=== PATIENT | female | born 1980 | race Caucasian/White ===

== ENCOUNTER 2024-03-13 12:44 | Emergency (ER) | payer OTHER, SELFPAY ==
--- NOTE | ~2024-03-13 | XR_ITS ---
XR ankle LT min 3V DATE: 03/13/2024 13:01 INDICATION: Trauma TECHNIQUE: 4 views COMPARISON: None FINDINGS: There is mild to moderate anterolateral soft tissue swelling. No fracture or dislocation of the ankle with disruption of the ankle mortise is detected. No perioste al reaction or bone destruction. IMPRESSION: Mild anterolateral soft tissue swelling; no fracture or dislocation of ankle or disruptio n of ankle mortise is detected Reviewed, dictated and finalized at location A. IMPRESSION: Mild anterolateral soft tissue swelling; no fracture or dislocation of ankle or disruption of ankle mortise is detected
[2024-03-13 12:44] VITALS: BP 112/85; PULSE 92; RESP 18; TEMP 36.5; O2SAT 100
--- NOTE | 2024-03-13 13:29 | ED.LOWEXIN ---
HPI - Extremity Injury (Lower) General Chief Complaint: Extremity Injury, Lower Stated Complaint: ankle injury History of Present Illness HPI Narrative: Patient is a 43-year-old female who presents ER with a left ankle injury. She was on a swing at a local park when her shoe caught a rubber mat and twisted. She felt a pop. She has swelling to lateral malleolus. No numbness or tingling. No additional injury. She has not. Weight. She was splinted by EMS. Review of Systems Constitutional: Constitutional: Reports no additional constitutional complaints Musculoskeletal: Musculoskeletal: Denies back pain, Reports arthralgias, Reports joint swelling and Denies muscle cramps Neurologic: Reports system reviewed and no additional complaints, except as documented PMFSH Past Medical History Medical History (Updated 03/13/24 @ 13:50 by Brandon Mcmullen MD) Fibromyalgia Surgical History Surgical History (Updated 03/13/24 @ 13:50 by Brandon Mcmullen MD) No pertinent past surgical history Exam Narrative: GENERAL: Anxious-appearing, well-nourished, and in no acute distress. HEAD: Normocephalic, atraumatic. ENT: Mucous membranes moist. EXTREMITIES: Tender palpation over lateral malleolus of left ankle with swelling/bruising. SKIN: Warm, dry, no rash. NEURO: Alert and oriented x3. PSYCH: Normal mood and affect. Course Vital Signs Vital signs: Vital Signs Temperature 97.7 F 03/13/24 12:44 Pulse Rate 92 03/13/24 12:44 Respiratory Rate 18 03/13/24 12:44 Blood Pressure 112/85 03/13/24 12:44 Pulse Oximetry 100 03/13/24 12:44 Oxygen Delivery Room Air 03/13/24 12:44 Temperature 97.7 F 03/13/24 12:44 Pulse Rate 92 03/13/24 12:44 Respiratory Rate 18 03/13/24 12:44 Blood Pressure 112/85 03/13/24 12:44 Pulse Oximetry 100 03/13/24 12:44 Oxygen Delivery Room Air 03/13/24 12:44 MDM - Extremity Injury (Lower) Imaging Data Radiologist's impression: ITS Impressions Ankle X-Ray 03/13/24 13:04 IMPRESSION: Mild anterolateral soft tissue swelling; no fracture or dislocation of ankle or disruption of ankle mortise is detected Discharge Plan Discharge Clinical Impression: Ankle sprain and strain Patient Disposition: Home, Self-Care Condition: Stable Instructions: Ankle Sprain (ED) Additional Instructions: Return ER if you have fever 100.4? F, you cannot keep down food water, you have chest pain with shortness of breath, or you have additional concerns. Prescriptions: New naproxen 375 mg tablet 375 mg PO BID Qty: 14 0RF Follow-up/Referrals: PHYSICIAN NOT ON STAFF,NONSTAFF [Primary Care Provider] - 1 Week
== END 2024-03-13 13:58 | disposition home or self-care (01) ==
PROVIDERS: Emergency Provider Emergency Medicine
DX: S93.402A Sprain of unspecified ligament of left ankle, initial encounter (principal); X50.0XXA Overexertion from strenuous movement or load, initial encounter
CPT/HCPCS: 73610; 99283

== ENCOUNTER 2024-11-14 15:56 | Emergency (ER) | payer OTHER, SELFPAY ==
[2024-11-14 15:58] VITALS: BP 130/78; PULSE 87; RESP 16; TEMP 36.4; O2SAT 100
--- NOTE | 2024-11-14 16:04 | ED_ITS ---
HPI - Female Genitourinary General Chief complaint: Urogenital-Female <Nelly Umanzor APRN - Last Filed: 11/14/24 16:14> Stated complaint: dx UTI sent from [facility] <Nelly Umanzor APRN - Last Filed: 11/14/24 16:14> Time Seen by Provider: 11/14/24 16:05 <Nelly Umanzor APRN - Last Filed: 11/14/24 16:14> Patient is a 44-year-old female who presents to the ER after being sent by urgent care for concerns of pyelonephritis. She reports she has left flank pain and was diagnosed with a urinary tract infection. Patient reports she has a history of one remaining kidney. She denies any abdominal pain, fevers, or visible blood in her urine. Patient reports she had her other kidney removed after having kidney infections. At the time of examination patient endorses nausea but has not vomited. She denies any other medical history relevant to this ER visit. <Nelly Umanzor APRN - Last Filed: 11/14/24 16:14> History of Present Illness HPI Narrative: Patient is a 44-year-old female who presents to the ER after being sent by urgent care for concerns of pyelonephritis. She reports she has left flank pain and was diagnosed with a urinary tract infection. Patient reports she has a history of one remaining kidney. She denies any abdominal pain, fevers, or visible blood in her urine. Patient reports she had her other kidney removed after having kidney infections. At the time of examination patient endorses nausea but has not vomited. She denies any other medical history relevant to this ER visit. <Danilo Carney MD - Last Filed: 11/14/24 22:16> Related Data Allergies/Adverse reactions: Allergies Allergy/AdvReac Type Severity Reaction Status Date / Time ciprofloxacin Allergy Unknown Verified 11/14/24 15:57 diphenhydramine (From AdvReac Unknown Verified 11/14/24 15:57 Benadryl) prochlorperazine (From AdvReac Unknown Verified 11/14/24 15:57 Compazine) <Nelly Umanzor APRN - Last Filed: 11/14/24 16:14> Review of Systems 2 Review of Systems: All systems reviewed & are unremarkable except as noted in HPI and below <Danilo Carney MD - Last Filed: 11/14/24 22:16> [facility] Past Medical History Medical History: Medical History (Updated 11/14/24 @ 19:00 by Danilo Carney MD) Fibromyalgia <Nelly Umanzor APRN - Last Filed: 11/14/24 16:14> Surgical History Surgical History: Surgical History (Updated 03/13/24 @ 13:50 by Brandon Mcmullen MD) No pertinent past surgical history <Nelly Umanzor APRN - Last Filed: 11/14/24 16:14> Exam 2 Narrative: APPEARANCE: Well appearing, no pain, no distress, well-nourished. HEAD: normocephalic, atraumatic. EYES: PERRLA/EOMI, conjunctivae clear. NOSE: Normal no drainage EARS:TMS clear with good light reflex. THROAT: Pharynx clear, no exudate. NECK: Supple. No adenopathy, no masses. RESPIRATORY: Airway patent, respirations nonlabored. Clear to auscultation bilaterally, no rales, rhonchi, wheezing. CARDIOVASCULAR: Regular rate and rhythm without murmurs rubs or gallops. ABDOMINAL: Soft, nontender, nondistended, normal bowel sounds MUSCULOSKELETAL: Moves all extremities. Strength/ROM intact, No edema, No calf tenderness. NEURO: Alert. Cranial nerves II through XII intact. Good gait. Good coordination SKIN: Warm, dry. Normal Color <Danilo Carney MD - Last Filed: 11/14/24 22:16> Course Vital Signs Vital signs: Vital Signs Temperature 97.6 F 11/14/24 15:58 Pulse Rate 87 11/14/24 15:58 Respiratory Rate 16 11/14/24 15:58 Blood Pressure 130/78 11/14/24 15:58 Pulse Oximetry 100 11/14/24 15:58 Oxygen Delivery Room Air 11/14/24 15:58 Temperature 98.4 F 11/14/24 19:02 Pulse Rate 65 11/14/24 19:02 Respiratory Rate 16 11/14/24 19:02 Blood Pressure 113/75 11/14/24 19:02 Pulse Oximetry 99 11/14/24 19:02 Oxygen Delivery Room Air 11/14/24 15:58 <Nelly Umanzor APRN - Last Filed: 11/14/24 16:14> Vital Signs Temperature 97.6 F 11/14/24 15:58 Pulse Rate 87 11/14/24 15:58 Respiratory Rate 16 11/14/24 15:58 Blood Pressure 130/78 11/14/24 15:58 Pulse Oximetry 100 11/14/24 15:58 Oxygen Delivery Room Air 11/14/24 15:58 Temperature 98.4 F 11/14/24 19:02 Pulse Rate 65 11/14/24 19:02 Respiratory Rate 16 11/14/24 19:02 Blood Pressure 113/75 11/14/24 19:02 Pulse Oximetry 99 11/14/24 19:02 Oxygen Delivery Room Air 11/14/24 15:58 <Danilo Carney MD - Last Filed: 11/14/24 22:16> MDM - Female Genitourinary MDM Narrative Medical decision making narrative: 44-year-old female presents emergency department for evaluation for suspected pyelonephritis. Patient does have only a single functioning kidney secondary to recurrent urinary tract infections previously. Patient is afebrile but does have a leukocytosis of 11.1. Patient's creatinine is 0.8 for urine was positive for leukocyte esterase and 11-20 white blood cells. Urine culture was ordered. Was treated with Rocephin in the emergency department and is being discharged home on Keflex. Patient does have outpatient testing pending for her bacterial vaginosis. <Danilo Carney MD - Last Filed: 11/14/24 22:16> Differential Diagnosis Differential diagnosis: Likely urinary tract infection and bacterial vaginosis <Danilo Carney MD - Last Filed: 11/14/24 22:16> Lab Data Attestation: I reviewed the patient's lab results. <Danilo Carney MD - Last Filed: 11/14/24 22:16> Result diagrams: 11/14/24 16:36 11/14/24 16:36 <Nelly Umanzor APRN - Last Filed: 11/14/24 16:14> Labs: Lab Results 11/14/24 Range/Units 16:36 WBC 11.1 H (4.5-10.0) K/mm3 RBC 4.49 (4.2-5.4) M/mm3 Hgb 13.8 (12.0-15.0) g/dL Hct 41.5 (37.0-47.0) % MCV 92.4 (80-100) fl MCH 30.7 (26-34) pg MCHC 33.3 (32-36) g/dl RDW 13.5 (11.5-14.5) % Plt Count 227 (150-375) k/mm3 MPV 11.1 H (7.4-10.4) fl Immature Gran % (Auto) 0.3 (0-0.5) % Neut % (Auto) 56.2 (45.5-73.1) % Lymph % (Auto) 21.7 (18.3-44.2) % [place] % (Auto) 6.4 (2.6-8.5) % Eos % (Auto) 14.4 H (0-4.4) % Baso % (Auto) 1.0 (0.2-1.2) % Lymph # (Auto) 2.40 (0.9-3.2) K/mm3 [place] # (Auto) 0.7 H (0.1-0.6) K/mm3 Eos # (Auto) 1.6 H (0-0.3) K/mm3 Baso # (Auto) 0.1 (0.0-0.1) K/mm3 Abs Immat Gran (auto) 0.03 (0.00-0.031) K/mm3 Absolute Neuts (auto) 6.2 (1.3-6.7) K/mm3 Absolute Nucleated RBC 0.000 (0.0-0.012) K/mm3 Nucleated RBC % 0.0 (0.0-0.2) % Sodium 137 (137-145) mmol/L Potassium 3.8 (3.4-5.0) mmol/L Chloride 107 (98-107) mmol/L Carbon Dioxide 22 (22-30) mmol/L Anion Gap 8 (4-12) mmol/L BUN 18 H (7-17) mg/dL Creatinine 0.84 (0.7-1.0) mg/dL Estim Creat Clear Calc Not Reportable Estimated GFR > 60 (59 - ) Glucose 101 (65-110) mg/dL Calcium 8.7 (8.4-10.2) mg/dL Total Bilirubin 0.4 (0.2-1.3) mg/dL AST 19 (14-36) U/L ALT 17 (6-35) U/L Alkaline Phosphatase 57 (38-126) U/L Total Protein 8.0 (6.3-8.2) g/dL Albumin 4.3 (3.5-5.1) g/dL Urine Color Yellow (Yellow) Urine Appearance Clear (Clear) Urine pH 6.0 (5.0-9.0) Ur Specific [place] 1.005 (1.001-1.035) Urine Protein Negative (Negative) mg/dL Urine Glucose (UA) Negative (Negative) mg/dL Urine Ketones Negative (Negative) mg/dL Ur Blood (Man) Negative (Negative) Urine Nitrate Negative (Negative) Urine Bilirubin Negative (Negative) Urine Urobilinogen 0.2 (<2.0) mg/dL Add Ur Microanalysis Reviewed Leukocyte Esterase Rfl 2+ H (Negative) HETAL/UL Urine RBC 0-2 (0-2) /hpf Urine WBC 11-20 H (0-3) /hpf Ur Squamous Epith Cells None seen (Few) /hpf Urine Bacteria None seen /hpf Urine Casts 0-2 <Nelly Umanzor, TEMPLATE INSPECTOR - Last Filed: 11/14/24 16:14> Lab Results 11/14/24 Range/Units 16:36 WBC 11.1 H (4.5-10.0) K/mm3 RBC 4.49 (4.2-5.4) M/mm3 Hgb 13.8 (12.0-15.0) g/dL Hct 41.5 (37.0-47.0) % MCV 92.4 (80-100) fl MCH 30.7 (26-34) pg MCHC 33.3 (32-36) g/dl RDW 13.5 (11.5-14.5) % Plt Count 227 (150-375) k/mm3 MPV 11.1 H (7.4-10.4) fl Immature Gran % (Auto) 0.3 (0-0.5) % Neut % (Auto) 56.2 (45.5-73.1) % Lymph % (Auto) 21.7 (18.3-44.2) % [place] % (Auto) 6.4 (2.6-8.5) % Eos % (Auto) 14.4 H (0-4.4) % Baso % (Auto) 1.0 (0.2-1.2) % Lymph # (Auto) 2.40 (0.9-3.2) K/mm3 [place] # (Auto) 0.7 H (0.1-0.6) K/mm3 Eos # (Auto) 1.6 H (0-0.3) K/mm3 Baso # (Auto) 0.1 (0.0-0.1) K/mm3 Abs Immat Gran (auto) 0.03 (0.00-0.031) K/mm3 Absolute Neuts (auto) 6.2 (1.3-6.7) K/mm3 Absolute Nucleated RBC 0.000 (0.0-0.012) K/mm3 Nucleated RBC % 0.0 (0.0-0.2) % Sodium 137 (137-145) mmol/L Potassium 3.8 (3.4-5.0) mmol/L Chloride 107 (98-107) mmol/L Carbon Dioxide 22 (22-30) mmol/L Anion Gap 8 (4-12) mmol/L BUN 18 H (7-17) mg/dL Creatinine 0.84 (0.7-1.0) mg/dL Estim Creat Clear Calc Not Reportable Estimated GFR > 60 (59 - ) Glucose 101 (65-110) mg/dL Calcium 8.7 (8.4-10.2) mg/dL Total Bilirubin 0.4 (0.2-1.3) mg/dL AST 19 (14-36) U/L ALT 17 (6-35) U/L Alkaline Phosphatase 57 (38-126) U/L Total Protein 8.0 (6.3-8.2) g/dL Albumin 4.3 (3.5-5.1) g/dL Urine Color Yellow (Yellow) Urine Appearance Clear (Clear) Urine pH 6.0 (5.0-9.0) Ur Specific [place] 1.005 (1.001-1.035) Urine Protein Negative (Negative) mg/dL Urine Glucose (UA) Negative (Negative) mg/dL Urine Ketones Negative (Negative) mg/dL Ur Blood (Man) Negative (Negative) Urine Nitrate Negative (Negative) Urine Bilirubin Negative (Negative) Urine Urobilinogen 0.2 (<2.0) mg/dL Add Ur Microanalysis Reviewed Leukocyte Esterase Rfl 2+ H (Negative) HETAL/UL Urine RBC 0-2 (0-2) /hpf Urine WBC 11-20 H (0-3) /hpf Ur Squamous Epith Cells None seen (Few) /hpf Urine Bacteria None seen /hpf Urine Casts 0-2 <Danilo Carney MD - Last Filed: 11/14/24 22:16> Discharge Plan Discharge Clinical Impression: Urinary tract infection <Nelly Umanzor APRN - Last Filed: 11/14/24 16:14> Patient Disposition: Home, Self-Care <Nelly Umanzor APRN - Last Filed: 11/14/24 16:14> Condition: Stable <Nelly Umanzor APRN - Last Filed: 11/14/24 16:14> Instructions: Antibiotic Form, Urinary Tract Infection in Women (ED) <Nelly Umanzor APRN - Last Filed: 11/14/24 16:14> Additional Instructions: Antibiotic as directed until completed. Call urgent care regarding your BV testing. Have close follow-up with your primary care physician. If you have any worsening symptoms then please call or return to the emergency department. Continue to take a probiotic. <Nelly Umanzor APRN - Last Filed: 11/14/24 16:14> Patient Language: Andorran <Nelly Umanzor APRN - Last Filed: 11/14/24 16:14> Prescriptions: New cephalexin 500 mg capsule 500 mg PO Q12H 7 Days Qty: 14 0RF No Action naproxen 375 mg tablet 375 mg PO BID Qty: 14 0RF <Nelly Umanzor APRN - Last Filed: 11/14/24 16:14> Follow-up/Referrals: PHYSICIAN NOT ON STAFF,NONSTAFF [Non-Staff] - <Nelly Umanzor APRN - Last Filed: 11/14/24 16:14>
[2024-11-14 16:50] LABS: Basophils Absolute Auto 0.1 K/mm3 (0.0-0.1); Eosinophils Absolute Auto 1.6 K/mm3 (0-0.3); Eosinophils Percent Auto 14.4 % (0-4.4); Hematocrit 41.5 % (37.0-47.0); Hemoglobin 13.8 g/dL (12.0-15.0); Immature Granulocyte Absolute 0.03 K/mm3 (0.00-0.031); Immature Granulocyte Percent A 0.3 % (0-0.5); Lymphocytes Percent Auto 21.7 % (18.3-44.2); Mean Corpuscular HGB Conc 33.3 g/dl (32-36); Mean Corpuscular Hemoglobin 30.7 pg (26-34); Mean Corpuscular Volume 92.4 fl (80-100); Mean Platelet Volume 11.1 fl (7.4-10.4); Monocytes Absolute Auto 0.7 K/mm3 (0.1-0.6); Monocytes Percent Auto 6.4 % (2.6-8.5); Neutrophils Absolute Auto 6.2 K/mm3 (1.3-6.7); Neutrophils Percent Auto 56.2 % (45.5-73.1); Platelet Count Result 227 k/mm3 (150-375); Red Blood Count 4.49 M/mm3 (4.2-5.4); Red Cell Distribution Width 13.5 % (11.5-14.5); White Blood Count 11.1 K/mm3 (4.5-10.0)
[2024-11-14 16:58] LABS: Alanine Aminotransferase 17 U/L (6-35); Albumin Level 4.3 g/dL (3.5-5.1); Alkaline Phosphatase 57 U/L (38-126); Anion Gap 8 mmol/L (4-12); Aspartate Amino Transferase 19 U/L (14-36); Bilirubin,Total 0.4 mg/dL (0.2-1.3); Blood Urea Nitrogen 18 mg/dL (7-17); Calcium 8.7 mg/dL (8.4-10.2); Carbon Dioxide 22 mmol/L (22-30); Chloride 107 mmol/L (98-107); Estimated Glomerular Filt Rate > 60; Glucose 101 mg/dL (65-110); Potassium 3.8 mmol/L (3.4-5.0); Sodium 137 mmol/L (137-145)
[2024-11-14 17:18] LABS: Add Urine Microscopic? YES; Appearance Urine Clear (Clear); Bacteria Urine None Seen /hpf; Bilirubin Urine Negative (Negative); Blood Urine Negative (Negative); Color Urine Yellow (Yellow); Glucose Urine UA Negative (Negative); Ketones Urine Negative (Negative); Leukocyte Esterase Ur 2+ LEU/UL (Negative); Need Manual Microscopic Reviewed; Nitrate Urine Negative (Negative); Non Pathogenic Casts 0-2; Protein Urine Negative (Negative); RBC Urine 0-2 /hpf (0-2); Specific Grav Ur 1.005 (1.001-1.035); Squamous Epithelial Cell Urine None Seen /hpf (Few); Urobilinogen Urine 0.2 mg/dL (<2.0)
[2024-11-14] MEDS: ONDANSETRON HCL ODT 4 MG TABLET PO (17:50)
--- OUTSIDE RECORDS SUMMARY | 2024-11-14 18:17 | XMS_ITS | Encounter Summary ---
Author Organization [facility] Healthcare Address [address] [place] [address] Care Team Providers Care Lpn Or Medical Assistant Name Role Phone Remy Escalante .NET DEVELOPER Unavailable Leslie Brand Primary Care Provider [phone] Reason for Visit * Reason Comments Vaginal Discharge Pt reports she was s een and treated for BV on 09/29/24 and she did the metronidazole gel for the full course and felt better for a couple days but sxs returned and then a couple days later she did another treatment from what was leftover Blood in urine and cloudy urine, L sided back pain and nausea. Encounter Details Date Type Department Care Team (Late st Contact Info) Description 11/14/2024 3:00 PM CDT Office Visit [facility] at [address] [address] Katherin Holland NP [address] [place] [address] [address] [place] [address] Dysuria (Primary Dx); Vaginal discharge; History of pyelonephritis; Atrophic kidney; Left flank pain Social History Tobacco Use Types Packs/Day Years Used Date Smoking Tobacco: Every Day Cigarettes Smokeless Tobacco: Never Alcohol Use Standard Drinks/Week Comments Not Currently 0 (1 standard drink = 0.6 oz pur e alcohol) Hamilton Depression Scale Answer Date Recorded Hamilton Depression Scale Total 13 11/28/2020 The thought of harming myself has occurred to me . Hardly ever 11/28/2020 Comments No Sex and Gender Information Value Date Recorded Sex Assigned at Not on file Legal Sex Female 10:39 AM CDT Gender Identity Not on file Sexual Orientation Not on file documented as of this encounter Last Filed Vital Signs Vital Sign Reading Time Taken Comments Blood Pressure 122/76 11/14/2024 2:55 PM CDT Pulse 88 11/14/2024 2:55 PM CDT Temperature 36.1 C (97 F) 11/14/2024 2:55 PM CDT Respiratory Rate 16 11/14/2024 2:55 PM CDT Oxygen Saturation 99% 11/14/2024 2:55 PM CDT Inhaled Oxygen Concentration - - Weight 61.2 kg (135 lb) 11/14/2024 2:55 PM CDT Height - - Body Mass Index 21.46 09/29/2024 7:24 PM MARKETING PROJECT COORDINATOR documented in this encounter Patient Instructions * Patient Instructions* Katherin Holland NP - 11/14/2024 3:00 PM CDT Patient presents today with complaints of abdominal pain and left flank pain along with cloudy urine and blood in her urine over the last 2 days. Patient does have Left flank pain upon exam. Her urine did show a moderate amount of leukocytes and a trace amount of blood. Patient only has 1 functioning kidney. Reports her flank pain is on the same side of the kidney. Concern for pyelonephritis. documented in this encounter Plan of Treatment Scheduled Orders Name Type Priority Associated Diagnoses Orde r Schedule Urine culture Urine, clean voided Microbiology Routine Dysuria History of pyelonephritis Atrophic kidney Left flank pain Expected: 11/14/2024, Expires: 11/14/2025 Vaginitis panel Vaginal Microbiology Routine Vaginal discharge Expected: 11/17/2024, Expires: 11/14/2025 documented as of this encounter Procedures Procedure Name Priority Date/Time Associated Diagnosis Comments POCT URINALYSIS DIPSTICK Routine 11/14/2024 3:23 PM CDT Dysuria History of pyelonephritis Atrophic kidney Left flank pain documented in this encounter Results * (ABNORMAL) POCT urinalysis dipstick (11/14/2024 3:23 PM CDT) Color, Urine, POC Dark Yellow Clarity, ur, POC Cloudy(A) Clear Glucose, ur, POC Negative Negative MG/DL Bilirubin, ur, POC Negative Negative, Small, Moderate, Large Ketones, ur, POC Negative Negative Specific [place], POC 1.020 1.003 - 1.030 Blood, ur, POC Hemolyzed, trace(A) Negative pH, ur, POC 6.5 5.0 - 8.0 Protein, ur, POC Negative Negative Urobilinogen, urine, POC 2.0(A) 0.2 - 1.0 mg/dL Nitrite, ur, POC Negative Negative Leukocytes, ur, POC Moderate(A) Negative Lot Number [id number] Urine 11/14/2024 3:23 PM CDT Katherin Holland NP POINT OF CARE TEST ORDERAB LES Final Result documented in this encounter Visit Diagnoses Diagnosis Dysuria- Primary Vaginal discharge Leukorrhea, not specified as infective History of pyelonephritis Atrophic kidney Unspecified renal sclerosis Left flank pain Abdominal pain, unspecified site documented in this encounter Historical Medications * This list may reflect changes made after this encounter. SUMAtriptan (IMITREX) 25 mg tablet Take 1 tablet (25 mg total) by mouth 07/08/2024 sertraline (ZOLOFT) 100 mg tablet Take 1 tablet (100 mg total) by mouth 10/12/2019 nortriptyline (PAMELOR) 10 mg capsule Take 2 capsules (20 mg total) by mouth 06/20/2024 added in this encounter Care Teams Lpn Or Medical Assistant Relationship Specialty Start Date End Date Leslie Brand PA [address] [place] [address] PCP - General Physician Utilities Operator 11/14/24 Remy Escalante NP Nurse Practitioner Emergency Medicine 04/06/20 documented as of this encounter
--- OUTSIDE RECORDS SUMMARY | 2024-11-14 18:17 | XMS_ITS | Encounter Summary ---
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 cervical lordosis with disc bulges at C4-5 C5-6 and C6-7 as discussed above. Principal Saw Filer Name: LACIE JCARLOS A/P 43 yo with a h/o tobacco abuse, fibromyalgia, major depression, JAYCOB, and... MECHANICAL TECH into both arms not dermatomal Dove into shallow end of pool 16 yo ago all started. In therapy. No home traction. tried accupuncture. No e.s.i. No chiropractor. MRI cervical showed: cervical spondylosis DDD C4-5, C5-6, C6-7 loss of lordosis but not kypohotic C6-7 moderate to severe central spinal canal stenosis. No significant spinal cord signal abnormalities are noted. Moderate bilateral foraminal narrowing C5-6 moderate spinal canal stenosis. Moderate left and moderate to severe right foraminal narrowing. C4-5 mild to moderate central spinal canal stenosis. mild foraminal narrowing We discussed C4,C5,C6, top of C7 bilateral laminectomies for decompression. Declined. Miss Murry wished to try more conservative options first. We discussed home traction device, e.s.i., chiropractor We ordered bilat UE EMG/NCV CC pain management cervical e.s.i. VVC today. EMG/NCV no results. Miss Murry NO SHOW today and I even call phone. left message. FAHAD Cohn If patient wishes to reschedule and talk, have her get the bilat UE EMG/NCV (I don't see done), CC pain management cervical e.s.i.. /charleen/ JENI GARCIA MD PhD FAANS FCNS ATTENDING NEUROSURGEON Signed: 04/06/2024 11:36 Receipt Acknowledged By: 04/07/2024 12:41 /AVERY Shah PA-C, [facility]
--- OUTSIDE RECORDS SUMMARY | 2024-11-14 18:17 | XMS_ITS | Clinical Summary ---
Author Organization [facility] Address [facility] [place] [address] Care Team Providers Care Junior Manufacturing Engineer Name Role Phone Remy Escalante PARAPROFESSIONAL INTERPRETER Unavailable Leslie Brand Primary Care Provider [phone] Allergies Active Allergy Reactions Criticality Noted Date Comments Diphenhydramine Unknown 05/29/2020 Prochlorperazine Unknown 05/29/2020 Medications gabapentin (NEURONTIN) 100 mg capsule Take 1 capsule (100 mg total) by mouth 3 (three) times a day Active acetaminophen 500 mg capsuleIndicati ons:Fever,Pain Take 2 capsules (1,000 mg total) by mouth every 6 (six) hours as needed for pain 120 tablet 1 1 Active Additional Information Patient not taking.Reported on 11/14/2024 PNV with [id number] 27 mg iron- 1 mg tabletIndicatio ns:Vitamin Deficiency Prevention Take 1 tablet by mouth daily 90 tablet 1 1 Active Additional Information Patient not taking.Reported on 11/14/2024 ibuprofen (ADVIL,MOTRIN) 600 mg tabletIndicatio ns:Cramps Take 1 tablet (600 mg total) by mouth every 6 (six) hours as needed for pain 120 tablet 1 1 Active Additional Information Patient not taking.Reported on 11/14/2024 oxyCODONE (ROXICODONE) 5 mg immediate release tabletIndicatio ns:Pain Take 1 tablet (5 mg total) by mouth every 4 (four) hours as needed for pain for up to 8 doses 8 tablet 1 Active Additional Information Patient not taking.Reported on 11/14/2024 polyethylene glycol (MIRALAX) 17 gram packetIndicatio ns:constipation Take 1 packet (17 g total) by mouth daily 30 packet 2 1 Active Additional Information Patient not taking.Reported on 11/14/2024 simethicone (MYLICON) 80 mg chewable tabletIndicatio ns:Flatulence Take 1 tablet (80 mg total) by mouth 4 (four) times a day as needed for flatulence 30 tablet 1 Active Additional Information Patient not taking.Reported on 11/14/2024 metroNIDAZOLE (METROGEL) 0.75 % (37.5mg/5 gram) vaginal gelIndications: Bacterial Vaginosis Apply to vagina nightly for 5 nights. 70 g 5 Active nortriptyline (PAMELOR) 10 mg capsule Take 2 capsules (20 mg total) by mouth 4 Active sertraline (ZOLOFT) 100 mg tablet Take 1 tablet (100 mg total) by mouth 0 Active SUMAtriptan (IMITREX) 25 mg tablet Take 1 tablet (25 mg total) by mouth 4 Active Active Problems Problem Noted Date Diagnosed Date care following vaginal delivery 09/24 Overview (09/25/2020): # ID: Afebrile. No signs/symptoms of infection. COVID-19 negative. # Heme: EBL 250 mL. Hemodynamically stable. # CV/Pulm: Gestational hypertension - Blood pressures well controlled on no agents. Asymptomatic, denies CHAPMAN/RUQ pain/vision changes. CBC/CMP wnl. Newly diagnosed this admission. Consented for remote BP monitoring. # GI/: Tolerating PO. Voiding spontaneously. # Pain: Controlled with above regimen. # Post DVT prophylaxis: The patient has the following MAJOR risk factors none and the following MINOR risk factors none. SCDs ordered for VTE prophylaxis. # MOC: S/p BTL # MOF: # Fibromyalgia: pain well controlled on gabapentin # Celiac disease: continue gluten free diet per patient request # GDMA2: Fasting BG PPD#1: 74. For 2h OGTT at 6 weeks . # Disposition: Continue routine care Constipation during in third trimester 08/27/2020 Overview (08/27/2020): Add Colace, Can use miralax. Leiomyoma of uterus affecting in third trimester 07/27/2020 Overview (08/13/2020): Left lateral wall. Subserous. Size 16 mm x 11 mm x 17 mm. Mean 14.7 mm Anterior. Fundal. Subserous. Size 38 mm x 23 mm x 37 mm. Mean32.7 mm Fundal. Pedunculated. Size 53 mm x 52 mm x 58 mm. Mean 54.3 mm Gestational diabetes mellitu s (GDM) in third trimester controlled on oral hypoglycemic drug 07/27/2020 Overview (09/21/2020): Previously counseled S/p diabetes education Current regimen: Metformin to 1000 mg BID, previously discussed insulin but patient declined. Majority of fastings are still elevated 09/21/2020. She has [employer] insurance and would have to have the insulin shipped to her house. Discussed with Dr. Aquino who recommends She try either 500mg in the AM and 1500mg in the PM or 2,000mg in the PM. Also recommend a short walk in the evenings. Plan: -continue home BG monitoring with weekly logs -Continue twice weekly testing -IOL at 39 weeks- scheduled -2 hour GTT complicated by tobacco use in second t rimester 05/31/2020 Overview (08/13/2020): Daily tobacco use. Working on cutting down Short cervix during in second trimeste r 05/29/2020 Overview (09/21/2020): S/p vaginal progesterone> uncomplicated exam-indicated cerclage placement on 06/01 Removed 09/10. Cervix 2/75/-3 on 09/13 Cervix 3/1/-3 on 09/21- strict labor precautions reviewed Assessment & Plan (06/22/2020 10:52 AM CDT): Reports intermittent vaginal spasms. Cerclage visualized today without tension. Strict ptl precautions reviewed. Assessment & Plan (06/08/2020 11:39 AM CDT): No tension noted on her cerclage today. Discussed recommendation to not have intercourse. We discussed that if she were to travel we recommend presenting to her closest hospital an emergency and having her records with her. Advanced maternal age in multigravida, second tr imester 05/29/2020 Overview (05/29/2020): - No screening performed. - Anatomic survey without malformations. Celiac disease 05/24/2020 Overview (05/29/2020): Patient follows a gluten free diet. Will monitor weight gain and if concern will refer to auto body customizer for consult. Fibromyalgia 05/24/2020 Overview (05/29/2020): Patient reports pain is controlled with gabapentin. No increased interventions during this . Supervision of high-risk , unspecified trimester 05/24/2020 Overview (09/21/2020): [x] Full M Care; [] Red Team [] Blue Team Referring Provider: Dr. Gege Eubanks at [place] [phone] [x] Dating Criteria: LMP 12/30/19 STACIE 10/05/20 [x] Labs: Lab Results Component Value Date ABORH A Positive 05/30/2020 IDCOOMB Negative 05/30/2020 [id number] Nonreactive 05/30/2020 LABRPR Nonreactive 05/30/2020 RUBELIGG Reactive 05/30/2020 HEPBSAG Nonreactive 05/30/2020 [x] GC/CT: Neg/Neg on 05/31/20 [] Genetic Screening: [x] CBC [11.8/35.1/260K] [x] UCx: GBS [] Pap: will address at 6 weeks PP [] LD ASA (if indicated) starting at 12 weeks: [] PNBHS referral (if indicated) 2nd Tri Labs: [x] Anatomy ultrasound: [x] CBC [11.4/33.7/278K] /1hr [202] [x] Flu Shot (Apr-Jul): Declined 05/31/20 rk [x] Tdap (27-36wks): received in April of this year 3rd Tri Labs: [x] CBC/HIV/RPR: 11.4/neg/neg [x] GBS: POSITIVE 05/30/20 [] COVID testing: ordered 09/13/2020 Counselling [x] MOD: , IOL 39 weeks - Scheduled 09/27/20 @ 2200 [x] Place of delivery: [facility] [x] MOC: Desires BTL at [facility] Lucas Ramos [x] Method of feeding: [x] Course Instructor: discussed and resources provided, pt will call her insurance company today [x] PP Depression Discussed: Encounters Date Type Department Care Team Description 11/14/2024 3:00 PM CDT Office Visit [facility] at [address] [phone] Katherin Holland NP Dysuria (Primary Dx); Vaginal discharge; History of pyelonephritis; Atrophic kidney; Left flank pain 10/01/[address] [facility] [address] [phone] Dee Olvera NP 09/29/2024 7:30 PM BROKE BEATER Office Visit [facility] at [address] [phone] Dee Olvera NP Screening for STD (sexually transmitted disease) (Primary Dx); Vaginal odor; Vaginal discharge 09/29/2024 7:26 PM BROKE BEATER - 09/29/2024 11:59 PM BROKE BEATER Hospital Encounter [address] [address] Screening for STD (sexually transmitted disease); Vaginal odor; Vaginal discharge Discharge Disposition: Discharge to home or self care from Last 3 Months Surgical History Surgery Date Site/Laterality Comments NO PAST SURGERIES CERCLAGE CERVIX TUBAL LIGATION 08/24/2020 - 08/23/2021 Medical History Medical History Date Comments Fibromyalgia Herpes genitalis in women last b reakout about a year ago Diabetes mellitus (HCC) gestatio nal DM Preeclampsia 2020 with first pregn nolan Social History Tobacco Use Types Packs/Day Years Used Date Smoking Tobacco: Every Day Cigarettes Smokeless Tobacco: Never Tobacco Cessation:Ready to Q uit: No Alcohol Use Standard Drinks/Week Comments Not Currently 0 (1 standard drink = 0.6 oz pur e alcohol) [place] Depression Scale Answer Date Recorded [place] Depression Scale Total 13 11/28/2020 The thought of harming myself has occurred to me . Hardly ever 11/28/2020 Comments No Sex and Gender Information Value Date Recorded Sex Assigned at Not on file Legal Sex Female 10:39 AM CDT Gender Identity Not on file Sexual Orientation Not on file Obstetrics History Para Term AB IAB SAB Ectopic Multiple Livin g Live Births 1 1 1 0 1 1 Date Outcome GA Total Labor Labor/2nd/3rd Weight Sex Type Anes PTL Ines A1 A5 Name Clin 021 Term 38w 3d 8h 48m 8h 20m/0h 26m/0h 02m 2.795 kg (6 lb 2.6 oz) M Vag-S pont Epidur al N Livin g 8 9 WIAlina MILLER OYRAC [facility]AL David almaraz, Yoni Brar MD Complications:None Delivery Location:[facility] Main C ampus ([facility] 58LD) Last Filed Vital Signs Vital Sign Reading Time Taken Comments Blood Pressure 122/76 11/14/2024 2:55 PM CDT Pulse 88 11/14/2024 2:55 PM CDT Temperature 36.1 C (97 F) 11/14/2024 2:55 PM CDT Respiratory Rate 16 11/14/2024 2:55 PM CDT Oxygen Saturation 99% 11/14/2024 2:55 PM CDT Inhaled Oxygen Concentration - - Weight 61.2 kg (135 lb) 11/14/2024 2:55 PM CDT Height 168.9 cm (5' 6.5 ) 09/29/2024 7:24 PM BROKE BEATER Body Mass Index 21.46 09/29/2024 7:24 PM BROKE BEATER Plan of Treatment Health Maintenance Due Date Last Done Comments Albumin Creatinine Ratio, Urine 1981 Breast Cancer Screening-Mammogram 1981 Cervical Cancer Screening 1981 Hemoglobin A1C 1981 Hepatitis C Screening 1981 eGFR 1981 Dilated Eye Exam 1981 Foot Exam 1981 Lipid Panel 1981 Varicella Vaccines (1 of 2 - 13+ 2-dose series) 1994 Hepatitis B Screening 1999 Regular Well Visit/Exam 18-64 1999 Pneumococcal vaccine <65 (1 of 2 - PCV) 2000 Depression Screening 11/28/2021 11/28/2020 Influenza Vaccine (#1) 2024 DTaP/Tdap/Td Vaccine (2 - Td or Tdap) 11/17/2029 11/18/2019 HPV Vaccines Aged Out No longer eligi ble based on patient's age to complete this topic Procedures Procedure Name Priority Date/Time Associated Diagnosis Comments POCT URINALYSIS DIPSTICK Routine 11/14/2024 3:23 PM CDT Dysuria History of pyelonephritis Atrophic kidney Left flank pain N. GONORRHOEAE/C. TRACHOMATIS AMPLIFICATION Routine 09/29/2024 7:26 PM BROKE BEATER Screening for STD (sexually transmitted disease) Vaginal odor Vaginal discharge VAGINITIS PANEL Routine 09/29/2024 7:26 PM BROKE BEATER Screening for STD (sexually transmitted disease) Vaginal odor Vaginal discharge from Last 3 Months Results * (ABNORMAL) POCT urinalysis dipstick (11/14/2024 3:23 PM CDT) Color, Urine, POC Dark Yellow Clarity, ur, POC Cloudy(A) Clear Glucose, ur, POC Negative Negative MG/DL Bilirubin, ur, POC Negative Negative, Small, Moderate, Large Ketones, ur, POC Negative Negative Specific [place], POC 1.020 1.003 - 1.030 Blood, ur, POC Hemolyzed, trace(A) Negative pH, ur, POC 6.5 5.0 - 8.0 Protein, ur, POC Negative Negative Urobilinogen, urine, POC 2.0(A) 0.2 - 1.0 mg/dL Nitrite, ur, POC Negative Negative Leukocytes, ur, POC Moderate(A) Negative Lot Number [id number] Urine 11/14/2024 3:23 PM CDT Katherin Holland NP POINT OF CARE TEST ORDERAB LES Final Result * N. gonorrhoeae/C. trachomatis Amplification Vaginal (09/29/2024 7:26 PM BROKE BEATER) C. trachomatis Not Detected [facility] Comment:Testing performed by : [facility], [address] [place] [address]., [id number] N. gonorrhoeae Not Detected CHANDAN GARCIA Comment: Interpretive Data This assay detects Chlamydia trachomatis and Neisseria gonorrhoeae by nucleic acid amplification testing (NAAT). This assay has been cleared by the [place] Food and Drug administration. The performance characteristics of this test have been verified by the [facility] Molecular Infectious Disease laboratory. The performance characteristics of this test have not been evaluated in individuals less than 14 years of age. Current Interpretive Data was last revised on 2023. Testing performed by: [facility], [address] [place] [address]., [id number] Vaginal (None) 09/29/2024 7: 26 PM BROKE BEATER 09/30/2024 11:12 AM BROKE BEATER Dee Olvera NP LAB MICROBIOLOGY - GENERAL JONATHAN DUARTE Final Result CHANDAN GARCIA [id number] Department [place] [address] [facility] * (ABNORMAL) Vaginitis panel Vaginal (09/29/2024 7:26 PM BROKE BEATER) Jaz DNA probe Not Detected Not Detected Comment:Testing performed by : [facility], [address] [place] [address]., [id number] Gardnerella DNA probe Detected(A) Not Detected CHANDAN GARCIA Comment:Testing performed by : [facility], [address] [place] [address]., [id number] Trichomonas DNA probe Not Detected Not Detected CHANDAN GARCIA Comment: Interpretive Data Testing performed by [facility] via Affirm VPIII Microbial Identification Test, a DNA probe test for use in the detection and identification of Jaz species, Gardnerella vaginalis and Trichomonas vaginalis nucleic acid in vaginal fluid specimens from patients with symptoms of vaginitis/vaginosis. Negative results for these tests suggest the patient does not have candidiasis, bacterial vaginosis and/or trichomoniasis when consistent with clinical signs and symptoms. Current interpretive data was last revised on 2020. Testing performed by: [facility], [facility] [facility], [place]., [address] Vaginal 09/29/2024 7:26 PM BROKE BEATER 09/30/2024 12:48 PM BROKE BEATER us Dee Olvera NP LAB MICROBIOLOGY - GENERAL JONATHAN DUARTE Final Result CHANDAN [id number] Department [place] [address] from Last 3 Months Insurance [facility] Advance Directives For more information, please contact: [phone] * Full Code (Latest Code Status on File) Date Activated Date Inactivated Comments 09/24/2020 7:08 AM 09/25/2020 6:38 PM * Full Code Date Activated Date Inactivated Comments 09/23/2020 7:46 PM 09/24/2020 7:08 AM Full CPR in c ase of cardiopulmonary arrest * Full Code Date Activated Date Inactivated Comments 05/31/2020 3:38 PM 06/02/2020 7:12 PM Care Teams Junior Manufacturing Engineer Relationship Specialty Start Date End Date Leslie Brand PA [address] [place] [address] PCP - General Physician Magnetic Prospecting Supervisor 11/14/24 Remy Escalante NP Nurse Practitioner Emergency Medicine 04/06/20
--- OUTSIDE RECORDS SUMMARY | 2024-11-14 18:17 | XMS_ITS | Encounter Summary ---
Author Name [facility] [place] [facility] Address [address] [place] [address] Care Team Providers Care Blue Leather Sorter Name Role Phone FAHAD GUERRA Primary Care Provider MARIO Frias Primary Care Provider Unavailteodora gallegos Insurance Providers: All historical and current [...] AID (WNR) Nov 22, 2022 MEDICAI D [id number] LOUIE PAEZ PATIENT Selected Encounter This section includes the information on record at [place] for the Encounter. Date/Time Encounter Type Encounter Description Reason Pro vider Source IHE Encounter Template Text not used by [place]
--- OUTSIDE RECORDS SUMMARY | 2024-11-14 18:17 | XMS_ITS | Encounter Summary ---
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 Date/Time Encounter Type Encounter Description Reason Provider Source Feb 23, 2024 01:00 PM OFF/OP CNSLTJ NEW/EST MOD 40 NEUROLOGY ICD-10-CM G43.119 Migraine with aura, intractable, without status migrainosus UCHE GARCIA III Padmini Encounter Template Text not used by ID Assessments - Encounter Diagnoses This section includes the primary and secondary diagnoses documented for the Encounter. Date/Time Primary/Secondary Diagnosis Diagnosis Name Provider Source Feb 24, 2024 06:10 PM PRIMARY Migraine with aura, intractable, without status migrainosus UCHE GARCIA III [facility] Feb 24, 2024 06:10 PM SECONDARY Fibromyalgia UCHE GARCIA [facility] Feb 24, 2024 06:10 PM SECONDARY Oth symptoms and signs w cognitive functions and awareness UCHE GARCIA [facility] Feb 24, 2024 06:10 PM SECONDARY Vertigo of central origin UCHE GARCIA [facility] Plan of Treatment: Future Appointments (+ 6 months) and Future Tests (+/- 45 days) The Plan of Treatment section includes future care activities for the [facility] This section includes future appointments and future orders which are active, pending or scheduled. Future Appointments This section includes appointments that were scheduled to occur 6 months from the date of the Encounter, up to a maximum of 20 appointments. The data comes from all ID treatment facilities. Appointment Date/Time Appointment Type Appointme nt Facility Name Mar 23, 2024 06:15 AM AMBULATORY - MEDICINE [facility] Apr 05, 2024 09:30 AM AMBULATORY - SURGERY [facility] Apr 06, 2024 09:00 AM AMBULATORY - MEDICINE [facility] Apr 06, 2024 11:30 AM AMBULATORY - SURGERY [facility] Apr 17, 2024 03:19 PM AMBULATORY - MEDICINE [facility] Apr 21, 2024 01:30 PM AMBULATORY - PSYCHIATRY [facility] Apr 30, 2024 04:11 PM AMBULATORY - NONE [facility] May 04, 2024 12:29 AM AMBULATORY - NONE [facility] May 09, 2024 08:30 AM AMBULATORY - NEUROLOGY [facility] May 16, 2024 02:00 PM AMBULATORY - NEUROLOGY [facility] May 19, 2024 10:00 AM AMBULATORY - MEDICINE [facility] May 25, 2024 12:00 PM AMBULATORY - SURGERY [facility] Jun 20, 2024 12:02 PM AMBULATORY - MEDICINE [facility] Jun 28, 2024 02:30 PM AMBULATORY - REHAB MEDICIN E [facility] Jun 30, 2024 08:30 AM AMBULATORY - [facility] Jul 08, 2024 01:30 PM [facility] - MEDICINE [facility] Aug 10, 2024 03:00 PM [facility] - [facility] Aug 11, 2024 11:00 AM [facility] Lab Results: +/- 30 days of the encounter This section includes the Chemistry and Hematology Lab Results on record with ID for the patient. Radiology Reports and Pathology Reports are provided separately, in subsequent sections. Lab Results This section contains the Chemistry/Hematology Results that were resulted 30 days before or 30 daysafter the date of the Encounter. Date/Time Source Result Type Result - Unit Interpretation Reference Range Comment Feb 23, 2024 11:00 AM [facility] TEST URINE (MA-STL) Specimen Type: URINE No comment entered. Ordering Provider: ANGEL OGDEN Report Released Date/Time: Feb 23, 2024 10:27 AM Reporting Lab: [address] [phone] Performing Lab: [address] [phone] Qualitative Test NEG NEGATIVE Feb 23, 2024 11:00 AM [facility] URINALYSIS W/ CX REFLEX (STL-PB) Specimen Type: URINE No comment entered. Ordering Provider: ANGEL OGDEN Report Released Date/Time: Feb 23, 2024 10:27 AM Reporting Lab: [address] [phone] Performing Lab: [address] [phone] URINE COLOR Light-Yellow Yellow U.BILIRUBIN Negative mg/dL Negative U.PH 6.5 5.0-8.0 APPEARANCE Clear Clear U.NITRITE Negative mg/dL Negative URN.GLUCOSE Normal mg/dL Negative URN.PROTEIN Negative mg/dL Negative-20 URN.UROBILINOGEN 2 mg/dL H Normal URN.BLOOD Negative mg/dL Negative-Tr lupillo URN.KETONES Negative mg/dL Negative-Tr lupillo URN.LEUK.EST. Negative mg/dL Negative-Tr lupillo URN.SPECIFIC GRAVITY 1.017 1.005-1.029 Feb 23, 2024 10:25 AM [facility] TROPONIN I Specimen Type: PLASMA Comment: No hemolysis noted. Ordering Provider: ANGEL OGDEN Report Released Date/Time: Feb 23, 2024 10:27 AM Reporting Lab: [facility] [address] [facility] [phone] Performing Lab: [facility] [address] [facility] [phone] TROPONIN I <0.010 ng/mL 0-0.033 Feb 23, 2024 10:25 AM [facility] TSH (MA-PB) Specimen Type: SERUM No comment entered. Ordering Provider: ANGEL OGDEN Report Released Date/Time: Feb 23, 2024 10:27 AM Reporting Lab: [facility] [address] [place] [phone] Performing Lab: [facility] [address] [place] [phone] TSH 1.000 u[IU]/mL 0.47-5 Feb 23, 2024 10:25 AM [facility] MAGNESIUM Specimen Type: PLASMA Comment: No hemolysis noted. Ordering Provider: ANGEL OGDEN Report Released Date/Time: Feb 23, 2024 10:27 AM Reporting Lab: [facility] [address] [place] [phone] Performing Lab: [facility] [address] [facility] [address] MAGNESIUM 1.9 mg/dL 1.6-2.6 Feb 23, 2024 10:25 AM [facility] PHOSPHOROUS Specimen Type: PLASMA Comment: No hemolysis noted. Ordering Provider: ANGEL OGDEN Report Released Date/Time: Feb 23, 2024 10:27 AM Reporting Lab: [facility] [address] [facility] [phone] Performing Lab: [facility] [address] [place] [phone] PHOSPHOROUS 2.6 mg/dL 2.3-4.7 Feb 23, 2024 10:25 AM [facility] COMPREHENSIVE METABOLIC PANEL Specimen Type: PLASMA Comment: No hemolysis noted. Ordering Provider: ANGEL OGDEN Report Released Date/Time: Feb 23, 2024 10:27 AM Reporting Lab: [address] [phone] Performing Lab: [address] [phone] CREATININE 1.14 mg/dL H 0.6-1.1 UREA NITROGEN 11.9 mg/dL 9.0-25.0 GLUCOSE 91 mg/dL 72-99 SODIUM 136 meq/L 136-145 POTASSIUM 3.9 meq/L 3.5-5 CHLORIDE 101 meq/L 98-107 CARBON DIOXIDE 22 meq/L 22-31 CALCIUM 9.9 mg/dL 8.4-10.4 PROTEIN 8.5 g/dL 6-8.6 ALBUMIN 4.8 g/dL 3.4-5 TOTAL BILIRUBIN 0.4 mg/dL 0.2-1.2 ALKALINE PHOSPHATASE 64 U/L 40-150 AST/SGOT 16 U/L 5-34 ALT/SGPT 17 U/L 8-40 EGFR (CKD-EPI 2020) 61.6 >60 Feb 23, 2024 10:25 AM [facility] CBC Specimen Type: BLOOD No comment entered. Ordering Provider: ANGEL OGDEN Report Released Date/Time: Feb 23, 2024 10:27 AM Reporting Lab: [address] [phone] Performing Lab: [address] [phone] WBC 4.4 10*3/uL 3.6-11.2 RBC 5.09 10*6/uL H 3.60-5.00 HGB 16.2 g/dL H 11.0-14.9 HCT 48.2 H 32.6-43.4 MCV 94.7 fL 80.0-100.0 MCH 31.8 pg 27.0-34.0 MCHC 33.6 g/dL 33.0-36.0 PLT 208 10*3/uL 150-400 MPV 11.3 fL H 7.5-11.2 RDW 12.9 11.8-15.1 LYMPHOCYTES, AUTO % 8 MONOCYTES, AUTO % 14 NEUTROPHILS, AUTO % 71 EOSINOPHILS, AUTO % 6 BASOPHILS, AUTO % 1 LYMPHOCYTES, ABSOLUTE 0.37 10*3/uL L 0.77-4.50 MONOCYTES, ABSOLUTE 0.61 10*3/uL 0.19-0.80 NEUTROPHILS, ABSOLUTE 3.13 10*3/uL 2.10-8.00 EOSINOPHILS, ABSOLUTE 0.27 10*3/uL 0.00-0.60 BASOPHILS, ABSOLUTE 0.03 10*3/uL 0.00-0.20 Vital Signs: All taken on the encounter date This section contains inpatient and outpatient Vital Signs collected on the date of the Encounter. Date/Time Temperature Pulse Blood Pressure Respiratory Rate SP02 Pain Height Weight Body Mass Index Source Feb 23, 2024 03:50 PM 100 100/[address] [facility] Feb 23, 2024 02:00 PM 104 117/[address] [facility] Feb 23, 2024 01:21 PM 94 109/[address] [facility] Feb 23, 2024 12:00 PM 95 129/[address] [facility] Feb 23, 2024 11:00 AM 102 116/[address] [facility] Radiology Reports: +/- 30 days of the [...] the Encounter. The data comes from all [facility] facilities. Date/Time Radiology Report Provider Source Mar 23, 2024 06:55 AM ANKLE,LEFT,3 VIEWS : LOUIE PAEZ AND [id number] -1980 F Exm Date: MAR 23, 2024@06:55 Req Phys: JONATHAN MARQUEZ Loc: [facility]-EMERGENCY DEPT 1ST SHIFT (R Img Loc: -MAIN RADIOLOGY SUITE Service: Unknown Screen: Patient answered no [facility], [address] [place] [address] (Case [id number] COMPLETE) ANKLE,LEFT,3 VIEWS (RAD Detailed) CPT:96493 Proc Modifiers : LEFT Reason for Study: fall Clinical History: Report Status: Verified Date Reported: MAR 23, 2024 Date Verified: MAR 23, 2024 Forest Officer E-Sig:/ES/MAURA ALVAREZ MD Report: DATE: 03/23/2024 6:55 AM EXAM: ANKLE,LEFT,3 VIEWS, FOOT,LEFT 3 VIEWS OR MORE, TIBIA & FIBULA,LEFT, 2 VIEWS ACCESSION NUMBERS: [id number], [id number] History provided does not specifically explain the clinical reason and/or location of symptoms for the requested examination. comparison: none No acute fracture or dislocation. No other significant osseous abnormality Impression: No acute fracture or malalignment identified in the left tibia-fibula, ankle, and foot. Tomy Napier MD (Brazing Machine Setter) I, Maura Alvarez, have reviewed the images and report and concur with these findings. Primary Interpreting Staff: MAURA ALVAREZ MD, Radiologist (Forest Officer) Primary Interpreting Resident: TOMY NAPIER, Resident Physician /MAURA LAUREN [facility] Mar 23, 2024 06:55 AM TIBIA & FIBULA,LEF T, 2 VIEWS: MANEERLOUIE AND [id number] -1980 F Exm Date: MAR 23, 2024@06:55 Req Phys: JONATHAN MARQUEZ Loc: -EMERGENCY DEPT 1ST SHIFT (R Img Loc: -MAIN RADIOLOGY SUITE Service: Unknown Screen: Patient answered no [facility] [address] [place] [address] (Case [id number] COMPLETE) TIBIA & FIBULA,LEFT, 2 VIEWS (RAD Detailed) CPT:87639 Proc Modifiers : LEFT Reason for Study: fall Clinical History: Report Status: Verified Date Reported: MAR 23, 2024 Date Verified: MAR 23, 2024 Forest Officer E-Sig:/ES/MAURA ALVAREZ MD Report: DATE: 03/23/2024 6:55 AM EXAM: ANKLE,LEFT,3 VIEWS, FOOT,LEFT 3 VIEWS OR MORE, TIBIA & FIBULA,LEFT, 2 VIEWS ACCESSION NUMBERS: [id number], [id number] History provided does not specifically explain the clinical reason and/or location of symptoms for the requested examination. comparison: none No acute fracture or dislocation. No other significant osseous abnormality Impression: No acute fracture or malalignment identified in the left tibia-fibula, ankle, and foot. Tomy Napier MD (Brazing Machine Setter) I, Maura Alvarez, have reviewed the images and report and concur with these findings. Primary Interpreting Staff: MAURA ALVAREZ MD, Radiologist (Forest Officer) Primary Interpreting Resident: TOMY NAPIER, Resident Physician /MAURA LAUREN [facility] Mar 23, 2024 06:55 AM FOOT,LEFT 3 VIEWS OR MORE: LOUIE PAEZ AND [id number] -1980 F Exm Date: MAR 23, 2024@06:55 Req Phys: JONATHAN MARQUEZ Pat Loc: [facility]-EMERGENCY DEPT 1ST SHIFT (R Img Loc: -MAIN RADIOLOGY SUITE Service: Unknown Screen: Patient answered no [facility], [address] [place] [address] (Case [id number] COMPLETE) FOOT,LEFT 3 VIEWS OR MORE (RAD Detailed) CPT:07921 Proc Modifiers : LEFT Reason for Study: fall Clinical History: Report Status: Verified Date Reported: MAR 23, 2024 Date Verified: MAR 23, 2024 Forest Officer E-Sig:/ES/MAURA ALVAREZ MD Report: DATE: 03/23/2024 6:55 AM EXAM: ANKLE,LEFT,3 VIEWS, FOOT,LEFT 3 VIEWS OR MORE, TIBIA & FIBULA,LEFT, 2 VIEWS ACCESSION NUMBERS: [id number], [id number] History provided does not specifically explain the clinical reason and/or location of symptoms for the requested examination. comparison: none No acute fracture or dislocation. No other significant osseous abnormality Impression: No acute fracture or malalignment identified in the left tibia-fibula, ankle, and foot. Tomy Napier MD (Brazing Machine Setter) I, Maura Alvarez, have reviewed the images and report and concur with these findings. Primary Interpreting Staff: MAURA ALVAREZ MD, Radiologist (Forest Officer) Primary Interpreting Resident: TOMY NAPIER, Resident Physician /MAURA LAUREN [facility] Feb 23, 2024 12:[address] ANGIO HEAD AND NECK -P: CHITRA PAEZHEAL AND [id number] -1980 F Exm Date: FEB 23, 2024@12:44 Req Phys: ROBIN OGDEN Loc: [facility]-EMERGENCY DEPT 2ND SHIFT (R Img Loc: -CT IMAGING [facility] Service: Unknown Screen: Patient answered no [facility], [address] [place] [address] (Case [id number] COMPLETE) CT HEAD ANGIOGRAPHY W&W/O CONT (CT Detailed) CPT:38544 Contrast Media : unspecified contrast media Reason for Study: see below (Case 2028 COMPLETE) CT NECK ANGIOGRAPHY WITH AND WITH(CT Detailed) CPT:35981 Contrast Media : unspecified contrast media (Case 2030 COMPLETE) CT HEAD W/IV CONT (CT Detailed) CPT:57871 Contrast Media : Non-ionic Iodinated (Case 2030 COMPLETE) CT 3D RENDERING W INDEPENDENT WOR(CT Detailed) CPT:20429 Clinical History: Responsible Attending: jhon Attending Contact Number: er Resident Contact Number: [place] [employer] Enter Hx and Reason for Exam: headache, speech difficulties, dizziness, memory problems, family hx of strokes in mother, intermittent symptoms for months, outside treatment window so not a code stroke Allergies listed in CPRS chart: DIPHENHYDRAMINE, COMPAZINE, NICODERM TRANSDERMAL, NICORETTE 2MG GUM, LOZENGES CLINDAMYCIN Creatinine: CREATININE 0.90 mg/dL 12/01/2022 12:03 /eGFR: STL EGFR (within one year). *No Lab Data Found* Wt: 143.2 lb [64.95 kg] (01/04/2024 09:12) History of: Renal failure, chronic or acute renal disease: NO Report Status: Verified Date Reported: FEB 23, 2024 Date Verified: FEB 23, 2024 Forest Officer E-Sig:/ES/Lacie Aguilar MD Report: CASE #: [id number], [id number] DATE:02/23/2024 2:21 PM CLINICAL HISTORY:Headache, speech difficulties, dizziness, memory problems, family history of strokes. COMPARISON: None currently available. TECHNIQUE: CT HEAD ANGIOGRAPHY W&W/O CONT, CT NECK ANGIOGRAPHY WITH AND WITHOUT CONTRAST, CT HEAD W/IV CONT, CT 3D RENDERING W INDEPENDENT WORKSTATION POSTPROCESSING FINDINGS: NONCON HEAD CT: Beam hardening streak artifact affects the lower scan slices. Brain appears developmentally unremarkable. No evidence for acute or more chronic hemorrhage. The calvarium and visualized facial bones are intact. No mass effect or midline shift. No acute sinusitis or mastoiditis. Nonspecific hypoattenuation in the periventricular and subcortical deep white matter most likely related to small vessel ischemic change. Age-appropriate volume loss. CTA HEAD AND NECK: No acute lung apical process.] Common carotid and internal carotid are unremarkable through the skull base. Terminal branching pattern of the right internal carotid is unremarkable. Left common carotid and internal carotid unremarkable from its origin through the skull base. Terminal branching pattern of the left internal carotid is typical. The anterior communicating artery is patent. The posterior communicating arteries are patent, the left larger than the right. The right vertebral artery is patent through the transverse foramina of the neck and foramen magnum but is smaller than the left at the basilar confluence. The left vertebral artery is patent through the transverse foramina to the basilar confluence. The terminal branching pattern of the basilar artery is within normal limits. The primary supply of both posterior cerebral arteries is the basilar artery. No aneurysms of the [place]aja of [place] are identified. Impression: No acute intracranial hemorrhage. No focal stenoses of the carotid or vertebral arteries. Both posterior communicating arteries are patent, the left larger than the right. The anterior communicating artery is patent. There are no aneurysms of the inaja of [place]. Comment: If clinical signs/symptoms are persistent, MRI of the brain is recommended for further evaluation. Primary Interpreting Staff: Lacie Aguilar MD, Radiologist (Forest Officer) /LACIE WOLFE [facility] Feb 23, 2024 10:31 AM CHEST PORTABLE: LOUIE PAEZ AND [id number] -1980 F Exm Date: FEB 23, 2024@10:31 Req Phys: ROBIN OGDEN Pat Loc: [facility]-EMERGENCY DEPT 2ND SHIFT (R Img Loc: [facility]-MAIN RADIOLOGY SUITE Service: Unknown Screen: Patient answered no [facility], [address] [place] [address] (Case [id number] COMPLETE) CHEST PORTABLE (RAD Detailed) CPT:22305 Proc Modifiers : Portable Reason for Study: weakness Clinical History: Report Status: Verified Date Reported: FEB 23, 2024 Date Verified: FEB 23, 2024 Forest Officer E-Sig:/ES/MAURA ALVAREZ MD Report: EXAM: Chest x-ray 1 view DATE: 02/23/2024 10:50 AM History provided does not specifically explain the clinical reason and/or location of symptoms for the requested examination. Comparison: none Findings: Lungs: No acute infiltrates. Mediastinum: No significant abnormality within the limitations of portable technique. Pulmonary vasculature: Pulmonary vasculature is within normal limits. Impression: No acute disease within the limitations of AP portable technique. Dictated by Mary Lou Albert DO (Brazing Machine Setter) I, Maura lAvarez, have reviewed the images and report and concur with these findings. Primary Interpreting Staff: MAURA ALVAREZ MD, Radiologist (Forest Officer) Primary Interpreting Resident: MARY LOU ALBERT DO, MAID SUPERVISOR /MAURA SPIVEY [facility] Encounter Notes: All associated encounter notes This section contains the clinical notes associated to the Encounter. Date/Time Encounter Note(s) Provider Source Feb 23, 2024 03:11 PM CONSULT: LOCAL TITLE: E-CONSULT NEUROLOGY OUTPT ST[facility] STANDARD TITLE: CONSULT DATE OF NOTE: FEB 23, 2024@15:11 ENTRY DATE: FEB 23, 2024@15:13:05 AUTHOR: JUAN VAZQUEZ COSIGNER: UCHE GARCIA III URGENCY: STATUS: COMPLETED E-CONSULT NEUROLOGY OUTPT [facility] Has ADDENDA NEUROLOGY CONSULT NOTE Date of Visit: FEB 23, 2024 CC: Dizziness, head pressure, arm twitching HPI: Pt is a 43 year old FEMALE with a PMHx of fibromyalgia on Gabapentin who presents for dizziness, head pressure and arm twitching. Patient reports she has had history of increased cervical muscle tension and pain leading to head fullness the develops into severe pressure and squeezing throughout her head, behind her eyes and face. During this times, notes dizziness with eye movements particularly superior/inferior movemement of eyes. Patient notes she has previously went to the ED in [place] for headache with head fullness and found relief with a cocktail. Patient has found improvement in neck pain through physical therapy and dry needling. Patient also notes intermittent bouts of twitching in the arms, nonspecific trigger but seems associated with the cervical pain and head fullness. Patient notes last few weeks have been stressful, citing taking care of son alone and recent of her father. MEDICAL HISTORY: 1) Tobacco use 2) Major depressive disorder 3) Fibromyalgia 4) Obstructive sleep apnea 5) Exposure to potentially hazardous substance ACTIVE OUTPATIENT MEDS: Active Outpatient Medications (including Supplies): Active Outpatient Medications Status 1) GABAPENTIN 300MG CAP TAKE TWO CAPSULES BY MOUTH THREE ACTIVE (S) TIMES A DAY FOR NERVE PAIN 2) SERTRALINE HCL 100MG TAB TAKE ONE TABLET BY MOUTH ACTIVE ONCE A DAY FOR MOOD Allergies/Adverse Drug Reactions: DIPHENHYDRAMINE, COMPAZINE, NICODERM TRANSDERMAL, NICORETTE 2MG GUM, LOZENGES CLINDAMYCIN Vital Signs: Pulse: 104 (02/23/2024 14:00) BP: 117/83 (02/23/2024 14:00) RESP: 18 (02/23/2024 09:42) Pain: 1 (02/23/2024 09:42) Weight: 143.2 lb [64.95 kg] (01/04/2024 09:12) PHYSICAL EXAM: General: NAD Mental Status: Alert and oriented x 3, answers questions appropriately Speech clear, fluent and coherent, follows complex commands Cranial Nerves: PERRLA, EOMI, no double vision No ptosis, nystagmus or diplopia Facial sensation intact in all three divisions bilaterally Face symmetric, hearing intact bilaterally, palate symmetric Uvula and tongue midline, shoulder shrug intact bilaterally Motor: Abnormal movements: briefly noted L upper arm twitching during physical exam that was distractable Tone: normal Bulk: normal Power: Mild weakness in exertion L > R but has 5/5 strength in upper and lower extremities bilaterally DTR: 2+ DTRs in biceps, triceps, achilles, 3+ L patellar. 2+ R patellar Sensory: Intact LT Coordination: FNF, DINAH Gait/Balance: Not tested Notable Laboratory Findings: WBC 4.4 10*3/uL 02/23/2024 10:25 RBC 5.09 H 10*6/uL 02/23/2024 10:25 HGB 16.2 H g/dL 02/23/2024 10:25 HCT 48.2 H % 02/23/2024 10:25 MCV 94.7 fL 02/23/2024 10:25 MCH 31.8 pg 02/23/2024 10:25 MCHC 33.6 g/dL 02/23/2024 10:25 RDW 12.9 % 02/23/2024 10:25 PLT 208 10*3/uL 02/23/2024 10:25 MPV 11.3 H fL 02/23/2024 10:25 NEUTROPHILS, AUTO % 71 % 02/23/2024 10:25 LYMPHOCYTES, AUTO % 8 % 02/23/2024 10:25 MONOCYTES, AUTO % 14 % 02/23/2024 10:25 EOSINOPHILS, AUTO % 6 % 02/23/2024 10:25 BASOPHILS, AUTO % 1 % 02/23/2024 10:25 NEUTROPHILS, ABSOLUTE 3.13 10*3/uL 02/23/2024 10:25 LYMPHOCYTES, ABSOLUTE 0.37 L 10*3/uL 02/23/2024 10:25 MONOCYTES, ABSOLUTE 0.61 10*3/uL 02/23/2024 10:25 EOSINOPHILS, ABSOLUTE 0.27 10*3/uL 02/23/2024 10:25 BASOPHILS, ABSOLUTE 0.03 10*3/uL 02/23/2024 10:25 Comprehensive Metabolic Panel Results: SODIUM 136 mEq/L 02/23/2024 10:25 POTASSIUM 3.9 mEq/L 02/23/2024 10:25 CHLORIDE 101 mEq/L 02/23/2024 10:25 UREA NITROGEN 11.9 mg/dL 02/23/2024 10:25 CREATININE 1.14 H mg/dL 02/23/2024 10:25 CALCIUM 9.9 mg/dL 02/23/2024 10:25 PROTEIN 8.5 g/dL 02/23/2024 10:25 ALBUMIN 4.8 g/dL 02/23/2024 10:25 ALKALINE PHOSPHATASE 64 U/L 02/23/2024 10:25 ALT/SGPT 17 U/L 02/23/2024 10:25 AST/SGOT 16 U/L 02/23/2024 10:25 TOTAL BILIRUBIN 0.4 mg/dL 02/23/2024 10:25 CARBON DIOXIDE 22 mEq/L 02/23/2024 10:25 GLUCOSE 91 mg/dL 02/23/2024 10:25 EGFR (CKD-EPI 2020) 61.6 02/23/2024 10:25 Cardiac Enzymes ____ TROPONIN I <0.010 ng/mL 02/23/2024 10:25 TSH: TSH 1.000 uIU/mL 02/23/2024 10:25 IMAGING: CT HEAD ANGIOGRAPHY W&W/O CONT Exm Date: FEB 23, 2024@12:44 Impression: No acute intracranial hemorrhage. No focal stenoses of the carotid or vertebral arteries. Both posterior communicating arteries are patent, the left larger than the right. The anterior communicating artery is patent. There are no aneurysms of the [place] of [place]. Assessment/Plan: 43 YO WHITE FEMALE presenting with symptoms of head pressure and fullness with associated dizziness, and reports of abnormal arm movements. Patient's exam was grossly unremarkable without focal deficits or particular distal weakness, CT imaging also negative for acute neurovascular pathology. Patient received 1L fluids plus Tylenol in ED, with improvement of symptoms. Patient's symptoms appear more related to untreated chronic migraine, with possible component of psychosomatic exacerbation of symptoms. Will recommend outpatient follow up in Neurology clinic for initiating migraine treatment, and additional symptom management. Slightly elevated Cr noted, unclear if patient's baseline. Patient may continue with current Gabapentin dose, but will recommend continued hydration and follow up with PCP/Neurology clinic. PLAN - Follow up in Neurology Clinic in 4-6 weeks - Continue use of home Gabapentin - Encouraged hydration - Rest of care per Primary Patient was discussed with Neurology Attending, Dr. Uche Garcia /charleen/ JUAN VAZQUEZ DO RESIDENT PHYSICIAN Signed: 02/23/2024 15:44 /es/ UCHE GARCIA III STAFF PHYSICIAN, NEUROLOGY Cosigned: 02/24/2024 18:10 02/24/2024 ADDENDUM STATUS: COMPLETED Patient seen and examined with resident physician Dr. Vazquez for this NEUROLOGY OUTPATIENT CONSULT requested by Dr. Ogden of the Emergency Department (incorrect note title chosen by resident). Case discussed and chart reviewed. I agree with the assessment and recommendations as documented. Summary: Briefly, patient is a 43 year old FEMALE h/o fibromyalgia with several chronic symptoms that have worsened over the past few weeks, in the context of of her father. She notes that she has been off sertraline for the past 3-4 months (last filled 10/28/23) and thinks her symptoms worsened in conjunctin with change in the foreclosure clerk of her gabapentin (pill color changed) in the past 1-2 months. She reports dizziness, described as both a whooshing sensation and sensation of motion when she moves either her eyes or head in different directions, a feeling of head fullness, abnormal arm movements worse over the past several days. She has a history of migraine headaches that have responded to migraine cocktail in the ED setting. She also reports some benefit with PT and acupuncture. She feels better since arrival in ED after IV fluids plus acetominophen, ketorolac and dexamethasone. On my exam, she is awake, alert, speech fluent, EOMI without diplopia or nystagmus (eye movements trigger vertigo), face symmetric, no dysarthria, no pronator drift, rapid movements slightly slowed bilaterally, full strength to confrontational testing throughout with some breakaway weakness in L arm and L leg, not able to fully lift L arm but can resist me fully with effort, no appendicular ataxia. CT/CTA without evidence of hemorrhage, large-territory infarct, focal stenosis or occlusion. I did not observe any abnomal involuntary movements. Clinical Impression: migraine causing headache, vertigo, cognitive dysfunction Recommendations per housestaff note. Neurologic examination not suggestive of stroke or other acute neurologic process. Diffuse and varied combination of symptoms may be best explained by migraine. Stress could be a trigger, given recent in the family. Her symptoms have improved in ED with migraine cocktail. She was offered admission by ED for symptomatic management and she declined. She is welcome to follow-up with us in Neurology clinic for management of migraine, if desired. Suggest Pain Management for evaluation and management of fibromyalgia. /charleen/ UCHE GARCIA III STAFF PHYSICIAN, NEUROLOGY Signed: 02/26/2024 11:57 [address]AN [address]Z [facility]
--- OUTSIDE RECORDS SUMMARY | 2024-11-14 18:17 | XMS_ITS | Referral Summary ---
Author Organization [facility] Address [address] [place] [address] Care Team Providers Care Highway Patrol Pilot Name Role Phone Remy Escalante RN TRANSPORT Unavailable Leslie Brand Primary Care Provider Encounters Date Type Department Care Team Description 11/14/2024 3:00 PM CDT Office Visit [facility] at [address] [phone] Katherin Holland NP Dysuria (Primary Dx); Vaginal discharge; History of pyelonephritis; Atrophic kidney; Left flank pain 10/01/2024 Orders Only [facility] Medical [facility] at [address] [phone] Dee Olvera NP 09/29/2024 7:26 PM VIBRATING SCREED OPERATOR - 09/29/2024 11:59 PM VIBRATING SCREED OPERATOR Hospital Encounter [address] [address] Screening for STD (sexually transmitted disease); Vaginal odor; Vaginal discharge Discharge Disposition: Discharge to home or self care 09/29/2024 7:30 PM VIBRATING SCREED OPERATOR Office Visit [facility] at [address] [phone] Dee Olvera NP Screening for STD (sexually transmitted disease) (Primary Dx); Vaginal odor; Vaginal discharge from Last 3 Months Allergies Active Allergy Reactions Criticality Noted Date [...] Patient not taking.Reported on 11/14/2024 PNV with [id number] 27 mg iron- 1 mg tabletIndicatio ns:Vitamin [...] gain and if concern will refer to marketing specialist for consult. Fibromyalgia 05/24/2020 Overview (05/29/2020): Patient reports pain is controlled with gabapentin. No increased interventions during this . Supervision of high-risk , unspecified trimester 05/24/2020 Overview (09/21/2020): [x] Full MFM Care; [] Red Team [] Blue Team Referring Provider: Dr. Gege Eubanks at [place] [phone] [x] Dating Criteria: LMP 12/30/19 STACIE 10/05/20 [x] Labs: Lab Results Component Value Date ABORH A Positive 05/30/2020 IDCOOMB Negative 05/30/2020 [id number] Nonreactive 05/30/2020 LABRPR Nonreactive 05/30/2020 RUBELIGG Reactive [...] delivery: PVT [x] MOC: Desires BTL at [facility] Lucas Rmaos [x] Method of feeding: [x] Test Architect: discussed and resources provided, pt will call her insurance company today [x] PP Depression Discussed: Social History Tobacco Use Types Packs/Day Years Used Date Smoking Tobacco: Every Day Cigarettes Smokeless Tobacco: Never Tobacco Cessation:Ready to Q uit: No Alcohol Use Standard Drinks/Week Comments Not Currently 0 (1 standard drink = 0.6 oz pur e alcohol) [place] Depression Scale Answer Date Recorded [place] Depression Scale Total 13 11/28/2020 The thought of harming myself has occurred to me . Hardly ever 11/28/2020 Comments No Sex and Gender Information Value Date Recorded Sex Assigned at Not on file Legal Sex Female 10:39 AM CDT Gender Identity Not on file Sexual Orientation Not on file Last Filed Vital Signs Vital Sign Reading [...] cm (5' 6.5 ) 09/29/2024 7:24 PM VIBRATING SCREED OPERATOR Body Mass Index 21.46 09/29/2024 7:24 PM VIBRATING SCREED OPERATOR Plan of Treatment Not on file Procedures Procedure Name Priority Date/Time Associated Diagnosis Comments POCT URINALYSIS DIPSTICK Routine 11/14/2024 3:23 PM CDT Dysuria History of pyelonephritis Atrophic kidney Left flank pain N. GONORRHOEAE/C. TRACHOMATIS AMPLIFICATION Routine 09/29/2024 7:26 PM VIBRATING SCREED OPERATOR Screening for STD (sexually transmitted disease) Vaginal odor Vaginal discharge VAGINITIS PANEL Routine 09/29/2024 7:26 PM VIBRATING SCREED OPERATOR Screening for STD (sexually transmitted disease) Vaginal odor Vaginal discharge from Last 3 Months Results * (ABNORMAL) POCT urinalysis dipstick (11/14/2024 3:23 PM CDT) Color, Urine, POC Dark Yellow Clarity, ur, POC Cloudy(A) Clear Glucose, ur, POC Negative Negative MG/DL Bilirubin, ur, POC Negative Negative, Small, Moderate, Large Ketones, ur, POC Negative Negative Specific [place], POC 1.020 1.003 - 1.030 Blood, ur, POC Hemolyzed, trace(A) Negative pH, ur, POC 6.5 5.0 - 8.0 Protein, ur, POC Negative Negative Urobilinogen, urine, POC 2.0(A) 0.2 - 1.0 mg/dL Nitrite, ur, POC Negative Negative Leukocytes, ur, POC Moderate(A) Negative Lot Number [id number] Urine 11/14/2024 3:23 PM CDT Katherin Holland NP POINT OF CARE TEST ORDERAB LES Final Result * N. gonorrhoeae/C. trachomatis Amplification Vaginal (09/29/2024 7:26 PM VIBRATING SCREED OPERATOR) Pathologist [facility] C. trachomatis Not Detected [facility] Comment:Testing performed by : [facility], [address] [place] [address]., [id number] N. gonorrhoeae Not Detected CHAND[facility] Comment: Interpretive Data This assay detects Chlamydia trachomatis and Neisseria gonorrhoeae by nucleic acid amplification testing (NAAT). This assay has been cleared by the [place] Food and Drug administration. The performance characteristics of this test have been verified by the [facility] Molecular Infectious Disease laboratory. The performance characteristics of this test have not been evaluated in individuals less than 14 years of age. Current Interpretive Data was last revised on 2023. Testing performed by: [facility], [address] [place] [address]., [id number] Vaginal (None) 09/29/2024 7: 26 PM VIBRATING SCREED OPERATOR 09/30/2024 11:12 AM VIBRATING SCREED OPERATOR Dee Olvera NP LAB MICROBIOLOGY - GENERAL ORDE [facility] Final Result CHANDAN GARCIA [id number] [place] [address] [facility] * (ABNORMAL) Vaginitis panel Vaginal (09/29/2024 7:26 PM VIBRATING SCREED OPERATOR) [facility] Jaz DNA probe Not Detected Not Detected Comment:Testing performed by : [facility], [facility]ly [facility], [place]., [address] Gardnerella DNA probe Detected(A) Not Detected [facility] Comment:Testing performed by : [facility], [address] [place] [address]., [id number] Trichomonas DNA probe Not Detected Not Detected [facility] Comment: Interpretive Data Testing performed by [facility] via Affirm VPIII Microbial Identification Test, a [...] last revised on 2020. Testing performed by: [facility], [address] [place] [address]., [id number] Vaginal 09/29/2024 7:26 PM VIBRATING SCREED OPERATOR 09/30/2024 12:48 PM VIBRATING SCREED OPERATOR Dee Olvera NP LAB MICROBIOLOGY - GENERAL JONATHAN DUARTE Final Result CHANDAN GARCIA [id number] Department of Laboratories [place], [place] [id number] from Last 3 Months Insurance [facility] Advance Directives For more information, please contact: [phone] * Full Code (Latest Code Status on File) Date Activated Date Inactivated Comments 09/24/2020 7:08 AM 09/25/2020 6:38 PM * Full Code Date Activated Date Inactivated Comments 09/23/2020 7:46 PM 09/24/2020 7:08 AM Full CPR in c ase of cardiopulmonary arrest * Full Code Date Activated Date Inactivated Comments 05/31/2020 3:38 PM 06/02/2020 7:[address] Patrol Pilot Relationship Specialty Start Date End Date Leslie Brand PA [address] [place] [address] PCP - General Physician Vascular Physician 11/14/24 Remy Escalante NP Nurse Practitioner Emergency Medicine 04/06/20
--- OUTSIDE RECORDS SUMMARY | 2024-11-14 18:17 | XMS_ITS ---
Author Name [facility] [place] Address [address] [place] [address] Care Team Providers Care Shank Rander Name Role Phone FAHAD GUERRA Primary Care [...] AID (WNR) Nov 22, 2022 MEDICAI D [id number] LOUIE PAEZ PATIENT Selected Encounter This section includes the information on record at [place] for the Encounter. Date/Time Encounter Type Encounter Description Reason Provider Source Sep 14, 2024 10:30 AM OFFICE O/P EST MOD 30 MIN [facility] - IND ICD-10-CM F33.1 Major depressive disorder, recurrent, moderate [facility] Encounter Template Text not used by [place] Assessments - Encounter Diagnoses This section includes the primary and secondary diagnoses documented for the Encounter. Date/Time Primary/Secondary Diagnosis Diagnosis Name Provider Source Sep 14, 2024 10:45 AM PRIMARY Major depressive disorder, recurrent, moderate [facility] Plan of Treatment: Future Appointments (+ 6 months) and Future Tests (+/- 45 days) The Plan of Treatment section includes future care activities for the patient from all [place] treatmentfaciluab hospital. This section includes future appointments and future orders which are active, pending or scheduled. Future Appointments This section includes appointments that were scheduled to occur 6 months from the date of the Encounter, up to a maximum of 20 appointments. The data comes from all [facility]. Appointment Date/Time Appointment Type Appointme nt Facility Name Sep 15, 2024 08:00 AM AMBULATORY - SURGERY [facility] Oct 19, 2024 11:00 AM AMBULATORY - MEDICINE [facility] Dec 14, 2024 11:00 AM AMBULATORY - PSYCHIATRY [facility] January 06, 2025 11:00 AM AMBULATORY - MEDICINE [facility] Active, Pending, and Scheduled Orders This section includes a listing of several types of active, pending, and scheduled orders, including clinic medications orders, diagnostic test orders, procedure orders and consult orders; where the start date of the order is 45 days before the date of the Encounter or 45 days after the date of theEncounter. The data comes from all [facility]. Test Date/Time Test Type Test Details Facility Name Sep 14, 2024 11:00 AM Consult Order [facility] Cons [employer] Restaurant Associate's Choice [facility] Social History: Smoking Status (Most current) and Tobacco Use (All prior to encounter date) This section includes the most current, and the historical, smoking and tobacco- related health factors from the [place] facility where the Encounter took place. Current Smoking Status This section includes the most current smoking, or tobacco-related health factor, from the [place] facility where the Encounter took place. Date/Time Current Smoking Status Comment Facil ity Jun 30, 2024 08:30 AM [place]-TOBACCO USE RYAN RY DAY CIGARETTES [facility] Tobacco Use History This section includes a history of the smoking, or tobacco-related health factors, that were collected on or before the date of the Encounter. The data comes from the [place] facility where the Encounter took place. Date/Time Smoking Status/Tobacco Use Comment F acility Jun 30, 2024 08:30 AM VA-TOBACCO SCREEN FOLLOW-UP [facility] Jun 30, 2024 08:30 AM VA-TOBACCO USE ADVICE [facility] Jun 30, 2024 08:30 AM VA-TOBACCO USE ELECTRIC SYSTEM OPERATOR NO [facility] Jun 30, 2024 08:30 AM VA-TOBACCO USE RYAN RY DAY CIGARETTES [facility] Jun 30, 2024 08:30 AM VA-TOBACCO USE MED NO [facility] Dec 01, 2022 11:30 AM VA-TOBACCO USE > 1 5 LESS THAN [address] [facility] Dec 01, 2022 11:30 AM VA-TOBACCO USE ADVICE [facility] Dec 01, 2022 11:30 AM VA-TOBACCO USE ELECTRIC SYSTEM OPERATOR NO [facility] Dec 01, 2022 11:30 AM VA-TOBACCO USE MED NO [facility] Dec 01, 2022 11:30 AM VA-TOBACCO USE [place] [address] [facility] Dec 01, 2022 11:30 AM VA-TOBACCO USER EVERY DAY [facility] Dec 19, 2021 09:30 AM VA-TOBACCO USE > 1 5 LESS THAN [address] [facility] Dec 19, 2021 09:30 AM VA-TOBACCO USE ADVICE [facility] Dec 19, 2021 09:30 AM VA-TOBACCO USE ELECTRIC SYSTEM OPERATOR NO [facility] Dec 19, 2021 09:30 AM VA-TOBACCO USE MED NO [facility] Dec 19, 2021 09:30 AM VA-TOBACCO USE [place] [address] [facility] Dec 19, 2021 09:30 AM VA-TOBACCO USER EVERY DAY [facility] January 11, 2021 11:30 AM VA-TOBACCO USE > 1 [address] LESS THAN [address] [facility] January 11, 2021 11:30 AM VA-TOBACCO USE ADVICE [facility] January 11, 2021 11:30 AM VA-TOBACCO USE ELECTRIC SYSTEM OPERATOR NO [facility] January 11, 2021 11:30 AM VA-TOBACCO USE MED YES [facility] January 11, 2021 11:30 AM VA-TOBACCO USE WI 30 MIN OF WAKEUP [facility] January 11, 2021 11:30 AM VA-TOBACCO USER EVERY DAY [facility] Encounter Notes: All associated encounter notes This section contains the clinical notes associated to the Encounter. Date/Time Encounter Note(s) Provider Source Sep 14, 2024 10:09 AM PSYCHIATRY NOTE: LOCAL TITLE: PSYCHIATRY [facility] STANDARD TITLE: PSYCHIATRY NOTE DATE OF NOTE: SEP 14, 2024@10:09 ENTRY DATE: SEP 14, 2024@10:09:46 AUTHOR: JAZ WOOTEN COSIGNER: URGENCY: STATUS: COMPLETED [facility] - MEDICATION MANAGEMENT Name..................LOUIE ETIENNE Age...................44 Sex...................ZAK AIKEN................... Today's Date..........SEP 14, 2024 Service Connection....Service Connected: Yes (90%) THIS WAS A [facility] APPOINTMENT and the below were completed prior to our exam: * Consent*: Obtained/confirmed verbal consent for telehealth * Address: Confirmed the location and address of the patient to ensure they are in a safe place and for use in case of an emergency. * Phone Numbers:* Confirmed on chart Confirmed patient's current phone number - for use if disconnected. Emergency contact's phone number was confirmed. * Surveyed the environment and identify all participants * Locked the virtual conference room once all participants have joined. DIAGNOSIS BEING TREATED THIS VISIT: MDD recurrent MST r/o cluster b traits ANY COMPLAINTS/PROBLEMS: everything is good now INTERVAL HISTORY: Patient stated everything is good now fixed everything . Didn't need to go to court. Stated they did a parenting plan after she talked to father. Will get son every other weekend. Tomorrow sees a new neurosurgeon about neck and planning on surgery. Did want to know about getting psychotherapy because of the trauma she had to go through of being put in mental hospital when in [place]. Still having panic attacks thinking about it. Having no depression but anxiety and unconscious thoughts. Just isolates self at times. Needs refill on sertraline. Satisfied with the 100mg dose. PSYCHIATRIC ROS: Mood: good Energy: good Anxiety: panic attacks Depression: not depression Sleep: really well Nightmares: none Appetite: really well Substance use: denies MSE: Appearance: clean, well groomed, wearing appropriate clothing for the weather and situation Behavior: calm, engaged, interactive, appropriate, good eye contact. Speech: clear, normal rate, rhythm and prosody Affect: calm, euthymic, congruent with speech content and stated mood Memory: not formally tested. Adequate for interview. Grossly intact. Concentration: wnl Sensorium: a&ox4 Thought Process: Coherent, goal directed, logical, relevant. Thought Content: No loose associations, delusions or hallucinations. Insight: understanding and implications of current issues are intact. Judgment: decision-making and problem-solving abilities are intact. Gait/movement: steady, no ataxia noted. No PMR/PMA/abnormal movements. Suicidal/homicidal ideation: denies si/hi/avh SUICIDE/HOMICIDE RISK ASSESSMENT ======== [ ] Imminent - Lethal or potentially lethal suicide attempt or severe suicidal ideations with plan and intent requiring immediate psychiatric. hospitalization [ ] High - Psychiatric diagnosis with severe symptoms or acute precipitating event, protective factors not relevant, potentially lethal suicide attempt or persistent ideation with strong intent or suicide rehearsal [ ] Moderate - Multiple risk factors, few protective factors, suicidal ideation with no plan, no intent or behavior [x] Low - Modifiable risk factors, strong protective factors, no thoughts of , no plan or behavior ALLERGIES: DIPHENHYDRAMINE, COMPAZINE, NICODERM TRANSDERMAL, NICORETTE 2MG GUM, LOZENGES CLINDAMYCIN OUTPATIENT MEDICATIONS: Active Outpatient Medications (excluding Supplies): Issue Date Status Last Fill Active Outpatient Medications Refills Expiration 1) GABAPENTIN 300MG CAP Qty: 540 for 90 days ACTIVE (S) Issue: 04/06/24 Sig: TAKE TWO CAPSULES BY MOUTH THREE TIMES Refills: 1 Last : 10/22/24 A DAY Expr : 04/07/25 Indication: FOR NERVE PAIN 2) NORTRIPTYLINE HCL 10MG CAP Qty: 180 for 90 ACTIVE Issue: 04/06/24 days Sig: TAKE TWO CAPSULES BY MOUTH AT Refills: 1 Last : 09/18/24 BEDTIME Expr : 04/07/25 Indication: HEADACHE 3) SUMATRIPTAN SUCCINATE 25MG TAB Qty: 9 for 30 ACTIVE Issue: 07/08/24 days Sig: TAKE ONE TABLET BY MOUTH Refills: 4 Last : 09/14/24 NEEDED TAKE AT ONSET OF HEADACHE. DECEMBER Expr : 07/09/25 REPEAT AFTER 2 HOURS. NOT TO EXCEED 2 TABLETS IN 24 HOURS. Indication: FOR MIGRAINE HEADACHE PROBLEM LIST: 1) Tobacco use 2) Major depressive disorder 3) Fibromyalgia 4) Obstructive sleep apnea 5) Exposure to potentially hazardous substance 6) Chronic migraine VITAL SIGNS: Pulse.................75 (07/08/2024 13:31) Temperature...........99.3 F [37.4 C] (07/08/2024 13:31) Blood Pressure........128/88 (07/08/2024 13:31) Weight................127 lb [57.61 kg] (07/08/2024 13:31) Patient Weight History - Last Four 1. 127.0 lbs. / 57.6 kg. on JUL 08, 2024@13:31:59 2. 138.0 lbs. / 62.6 kg. on APR 05, 2024@09:24:06 3. 143.2 lbs. / 65.0 kg. on JANUARY 04, 2024@09:12:02 4. 143.0 lbs. / 64.9 kg. on JUL 07, 2023@10:20:31 LAB VALUES: CBC WBC 11.1 10*3/uL 04/17/2024 16:25 RBC 4.60 10*6/uL 04/17/2024 16:25 HGB 14.6 g/dL 04/17/2024 16:25 HCT 43.5 H % 04/17/2024 16:25 MCV 94.6 fL 04/17/2024 16:25 MCH 31.7 pg 04/17/2024 16:25 MCHC 33.6 g/dL 04/17/2024 16:25 RDW 13.0 % 04/17/2024 16:25 PLT 222 10*3/uL 04/17/2024 16:25 MPV 12.5 H fL 04/17/2024 16:25 NEUTROPHILS, AUTO % 56 % 04/17/2024 16:25 LYMPHOCYTES, AUTO % 28 % 04/17/2024 16:25 MONOCYTES, AUTO % 8 % 04/17/2024 16:25 EOSINOPHILS, AUTO % 8 % 04/17/2024 16:25 BASOPHILS, AUTO % 1 % 04/17/2024 16:25 NEUTROPHILS, ABSOLUTE 6.22 10*3/uL 04/17/2024 16:25 LYMPHOCYTES, ABSOLUTE 3.07 10*3/uL 04/17/2024 16:25 MONOCYTES, ABSOLUTE 0.85 H 10*3/uL 04/17/2024 16:25 EOSINOPHILS, ABSOLUTE 0.86 H 10*3/uL 04/17/2024 16:25 BASOPHILS, ABSOLUTE 0.10 10*3/uL 04/17/2024 16:25 CHEM 7 SODIUM 140 mEq/L 04/17/2024 16:25 POTASSIUM 3.4 L mEq/L 04/17/2024 16:25 CHLORIDE 107 mEq/L 04/17/2024 16:25 UREA NITROGEN 18.3 mg/dL 04/17/2024 16:25 CREATININE 1.03 mg/dL 04/17/2024 16:25 CALCIUM 9.3 mg/dL 04/17/2024 16:25 CARBON DIOXIDE 23 mEq/L 04/17/2024 16:25 GLUCOSE 77 mg/dL 04/17/2024 16:25 EGFR (CKD-EPI 2020) 69.6 04/17/2024 16:25 HEPATIC PANEL No data available TRIGLYCERIDES...114 mg/dL (12/01/22 12:03) CHOLESTEROL.....CHOLESTERO L 210 H mg/dL 12/01/2022 12:03 TSH.............TSH 1.000 uIU/mL 02/23/2024 10:25 LITHIUM.........____ VALPROIC ACID...____ ASSESSMENT AND TREATMENT PLANNING: ======== DISCUSSION: LOUIE PAEZ is a 44 y/o FEMALE with a diagnosis of MDD recurrent MST r/o cluster b traits Patient endorses more stable situation with her family relationships since last visit. In a better mood. Would like individual psychotherapy for her anxiety from being admitted to inpatient mental health while in [place]. [place] PLAN: ======== 1) continue sertraline 100mg po daily for depression CONSULTS: would like a community care consult for individual f2f psychotherapy for her anxiety and panic over trauma she went through a few months ago. SUPPORTIVE PSYCHOTHERAPY......Yes 25 min -- 5 MIN E/M INSTRUCTIONS GIVEN TO PATIENT/FAMILY: Report medication side effects promptly No alcohol/illicit drug use with medication Needs to be cautious with driving/use of machinery. Follow up with Primary Care Provider If symptoms get worse, call clinic or Emergency Room as appropriate FOLLOW-UP: rtc in 3 months Medication Reconciliation Opt STL: I have reviewed the patient's medication list (including active outpatient prescriptions dispensed from this [place] (local) and dispensed from another [place] or [facility] facility (remote) as well as inpatient orders (local pending and active), local clinic medications, locally documented non-VA medications, and local prescriptions that have or been discontinued in the past 90 days.) with the patient and/or his/her care-medical auditor. Handwritten corrections, additions and/or deletions were made to the list, as appropriate. Corrected Outpatient Medication List was provided to the patient/caregiver. /charleen/ JAZ WOOTEN Nurse Practitioner, [facility] Signed: 09/14/2024 10:45 JAZ WOOTEN [facility]
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
--- OUTSIDE RECORDS SUMMARY | 2024-11-14 18:18 | XMS_ITS | Encounter Summary ---
Author Name [facility] of [facility] ([place]) Organization Department of [facility] ([place]) Address [address] [place] [address] Care Team Providers Care Learning Coordinator Name Role Phone FAHAD GUERRA Primary Care [...] AID (WNR) Nov 22, 2022 MEDICAI D [id number] [phone] LOUIE PAEZ PATIENT Selected Encounter This section includes the information on record at [place] for the Encounter. Date/Time Encounter Type Encounter Description Reason Pro vider Source May 18, 2024 11:23 AM Outpatient Encounter ADMIN PAT ACTIVTIES (MASNONCT) [facility] Encounter Template Text not used by [facility] Plan of Treatment: Future Appointments (+ 6 [...] 20 appointments. The data comes from all [place] treatment facilities. Appointment Date/Time Appointment Type Appointme nt Facility Name May 19, 2024 10:00 AM AMBULATORY - MEDICINE [facility] May 25, 2024 12:00 PM AMBUL[facility]ORY - SURGERY [facility] Jun 20, 2024 12:02 PM AMBULATORY - MEDICINE [facility] Jun 28, 2024 02:30 PM AMBULATORY - REHAB [facility]ICIN [facility] Jun 30, 2024 08:30 AM AMBULATORY - PSYCHIATRY [facility] Jul 08, 2024 01:30 PM AM[facility]ULATORY - MEDICINE [facility] Aug 10, 2024 03:00 PM AMBULATORY - [facility] Aug 11, 2024 11:00 AM AMBULATORY - MEDICINE [facility] Sep 14, 2024 10:30 AM AMBULATORY - [facility]ATRY [facility] Sep 15, 2024 08:00 AM AMBULATORY - SURGERY [facility] Oct 19, 2024 11:00 AM AMBULATORY - MEDICINE [facility] Active, Pending, and Scheduled Orders This section includes a listing of several types of active, pending, and scheduled orders, including clinic medications orders, diagnostic test orders, procedure orders and consult orders; where the start date of the order is 45 days before the date of the Encounter or 45 days after the date of theEncounter. The data comes from all [place] treatment [facility]. Test Date/Time Test Type Test Details Facility Name Apr 17, 2024 04:07 PM Laboratory - Chemi stry Order TEST URINE (MA-STL) URINE,RANDOM STAT ONCE [facility] Apr 17, 2024 04:07 PM Laboratory - Chemi stry Order URINE DRUG SCREEN (STL) URINE YELLOW WC ONCE [facility] Lab Results: +/- 30 days of the encounter This section includes the Chemistry and Hematology Lab Results on record with [place] for the patient. Radiology Reports and Pathology Reports are provided separately, in subsequent sections. Lab Results This section contains the Chemistry/Hematology Results that were resulted 30 days before or 30 daysafter the date of the Encounter. Date/Time Source Result Type Result - Unit Interpretation Reference Range Comment Apr 30, 2024 05:00 PM [facility] COVID-19 SCREENING PANEL (CEPHEID) Specimen Type: [...] Apr 30, 2024 04:43 PM Reporting Lab: [address] [id number] Performing Lab: [address] [address] COVID-19 (CEPHEID) Not detected Not Detected Apr 30, 2024 05:00 PM [facility] COMPREHENSIVE METABOLIC PANEL Specimen Type: PLASMA No comment entered. Ordering Provider: TIMBO MONTENEGRO Report Released Date/Time: Apr 30, 2024 04:43 PM Reporting Lab: [address] [address] Performing Lab: [address] [address] CREATININE 0.90 mg/dL 0.5-1.2 UREA NITROGEN 18 [...] 2020 82 Apr 30, 2024 05:00 PM [facility] DIFF, AUTOMATED 5-PART (& CBC) Specimen Type: BLOOD No comment entered. Ordering Provider: TIMBO MONTENEGRO Report Released Date/Time: Apr 30, 2024 04:43 PM Reporting Lab: [address] [address] Performing Lab: [address] [address] WBC 13.42 10*3/uL H 4.3-10.0 RBC 4.91 [...] H 0.0-0.2 Apr 30, 2024 04:40 PM [facility] HCG QUAL, STAT URINE Specimen Type: URINE No comment entered. Ordering Provider: TIMBO MONTENEGRO Report Released Date/Time: Apr 30, 2024 04:43 PM Reporting Lab: [address] [address] Performing Lab: [address] [address] HCG QUAL, STAT URINE neg Social History: Smoking Status (Most current) and Tobacco Use (All prior to encounter date) This section includes the most current, and the historical, smoking and tobacco- related health factors from the [facility] where the Encounter took place. Current Smoking Status This section includes the most current smoking, or tobacco-related health factor, from the [facility] where the Encounter took place. Date/Time Current Smoking Status Comment Facil ity Sep 29, 2019 02:06 PM CONFIRM TOBACCO USE [facility] Tobacco Use History This section includes a history of the smoking, or tobacco-related health factors, that were collected on or before the date of the Encounter. The data comes from the [place] facility where the Encounter took place. Date/Time Smoking Status/Tobacco Use Comment F acility Sep 29, 2019 02:06 PM CONFIRM TOBACCO MED REFERRAL [facility] Sep 29, 2019 02:06 PM CONFIRM TOBACCO USE [facility] Encounter Notes: All associated encounter notes This section contains the clinical notes associated to the Encounter. Date/Time Encounter Note(s) Provider Source May 18, 2024 11:23 AM NON[facility] NOTE: LOCAL TITLE: [facility] SELF PRESENTING CARE COORD PLAN STANDARD TITLE: NONVA NOTE DATE OF NOTE: MAY 18, 2024@11:23 ENTRY DATE: MAY 18, 2024@11:23:19 AUTHOR: MAYKEL AC EXP COSIGNER: URGENCY: STATUS: COMPLETED [facility] SELF PRESENTING CARE COORD PLAN NOTE Has ADDENDA Emergency Notification Intake Date Presenting to the Facility: Apr Method of Contact: Notified from ECR worklist Notification ID: [id number] [facility] Referral #: [facility] Name: [facility] [place] Address: City: [place] State: [place] Zip Code: Phone : [facility] Point of Contact: Name: Phone: Chief complaint: UNSPECIFIED PSYCHOSIS Primary Diagnosis: Disposition Admitted Route of Admission: Psychiatry Date of Admission: Apr Admitting Diagnosis: UNSPECIFIED PSYCHOSIS Community Care Provider: Confirm Level of Care: Behavioral Health Per [facility] pt located at: [address] [address] phone: [phone] fax: [phone] /es/ Maykel Ac RN RN, Patient Access Center Signed: 05/18/2024 11:24 06/03/2024 ADDENDUM STATUS: COMPLETED Called to check status. [facility] was discharged on 06/01/2024 Admission Diagnosis: UNSPECIFIED PSYCHOSIS If PCP/Clinician wants to review discharge summary, specialty consults, imaging or procedure reports, should have PACT staff request via fax on [place] letterhead to: Medical Records [facility] Medical Records [email or web address].[email or web address] If PCP/Clinician determines discharge summary, consults/reports are necessary for scanning into [facility], should send to [place] Medical Records with request for scanning. Alerting PACT RN for possible Follow-up for Discharge Needs. Per review of CPRS, [facility] has No Local PACT assigned, however a remote assignment may exist. /charleen/ Marina May RN BSN Marina May RN BSN Signed: 06/03/2024 10:12 MAYKEL AC [facility]
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
--- OUTSIDE RECORDS SUMMARY | 2024-11-14 18:18 | XMS_ITS ---
Author Name [facility] [facility] Address [address] [place] [address] Care Team Providers Care Event Coordinator Marketing And Sales Name Role Phone FAHAD GUERRA Primary Care [...] AID (WNR) Nov 22, 2022 MEDICAI D [id number] [phone] LOUIE PAEZ PATIENT Selected Encounter This section includes the information on record at [place] for the Encounter. Date/Time Encounter Type Encounter Description Reason Provider Source Sep 20, 2024 08:48 AM Outpatient Encounter [facility] CANDICE BELCHER Encounter Template Text not used by [place] Plan of Treatment: Future Appointments (+ 6 months) and Future Tests (+/- 45 days) The Plan of Treatment section includes future care activities for the patient from all [place] treatmentfacilities. This section includes future appointments and future orders which are active, pending or scheduled. Future Appointments This section includes appointments that were scheduled to occur 6 months from the date of the Encounter, up to a maximum of 20 appointments. The data comes from all [place] treatment facilities. Appointment Date/Time Appointment Type Appointme nt Facility Name Oct 19, 2024 11:00 AM AMBULATORY - MEDICINE [facility] Dec 14, 2024 11:00 AM [facility] January 06, 2025 11:00 AM [facility]ORY - [facility]ICINE [facility] Active, Pending, and Scheduled Orders This section includes a listing of several types of active, pending, and scheduled orders, including clinic medications orders, diagnostic test orders, procedure orders and consult orders; where the start date of the order is 45 days before the date of the Encounter or 45 days after the date of theEncounter. The data comes from all [place] treatment facilities. Test Date/Time Test Type Test Details Facility Name Sep 14, 2024 11:00 AM Consult Order [facility] Cons Master [employer] Choice [facility] Encounter Notes: All associated encounter notes This section contains the clinical notes associated to the Encounter. Date/Time Encounter Note(s) Provider Source Sep 20, 2024 08:48 AM NONVA NOTE: LOCAL TITLE: COMMUNITY CARE-CARE COORDINATION PLAN NOTE [address] [facility] STANDARD TITLE: NONVA NOTE DATE OF NOTE: SEP 20, 2024@08:48 ENTRY DATE: SEP 20, 2024@08:48:36 AUTHOR: CANDICE BELCHER EXP COSIGNER: URGENCY: STATUS: COMPLETED Community Care Consult: psychotherapy Consult No: [id number] [facility] Referral #: Chief Complaint: anxiety and panic attacks Patient Admitted? No Level of Care Coordination Moderate Care Coordination was determined from: Chart Review Facility Community Care Office Contact Care Coordination Point of Contact: Candice Belcher RN Services: Basic Care Coordination Services Monitoring and coordination of Rehab/PT Services Direct communication to referring provider Care management, if appropriate Plan: Community care provider will be selected based on preferred provider, auth to be faxed, then appt will be sched. Referral Number: [id number] Will follow until consult is scheduled and Will coordinate care with and [facility] providers throughout [facility]. CC staff will call post first appointment and throughout [facility] as warranted. /[email or web address]/ CANDICE BELCHER RN REGISTERED NURSE Signed: 09/20/2024 08:51 CANDICE BELCHER [facility]
--- OUTSIDE RECORDS SUMMARY | 2024-11-14 18:18 | XMS_ITS | Encounter Summary ---
Author Name [facility] [place] Organization [facility] [place] Address [address] [place] [address] Care Team Providers [employer] Driver Name Role Phone FAHAD GUERRA Primary Care [...] AID (WNR) Nov 22, 2022 MEDICAI D [id number] LOUIE PAEZ PATIENT Selected Encounter This section includes the information on record at [place] for the Encounter. Date/Time Encounter Type Encounter Description Reason Provider Source Feb 23, 2024 09:37 AM EMERGENCY DEPT VISIT MOD [facility] EMERGENCY DEPT ICD-10-CM R53.1 Weakness ZITA OGDNE IHPadmini Encounter Template Text not used by [place] Assessments - Encounter Diagnoses This section includes the primary and secondary diagnoses documented for the Encounter. Date/Time Primary/Secondary Diagnosis Diagnosis Name Provider Source Feb 23, 2024 04:17 PM PRIMARY Weakness ZITA OGDEN [facility] Feb 23, 2024 04:17 PM SECONDARY Migraine with aura, not intractable, w/o status migrainosus HAYDE COLE TT D [facility] Plan of Treatment: Future Appointments (+ 6 months) and Future Tests (+/- 45 days) The Plan of Treatment section includes future care activities for the patient [facility] This section includes future appointments and future orders which are active, pending or scheduled. Future Appointments This section includes appointments that were scheduled to occur 6 months from the date of the Encounter, up to a maximum of 20 appointments. The data comes from all [place] [facility] Appointment Date/Time Appointment Type Appointme nt Facility Name Mar 23, 2024 06:15 AM AMBULATORY - MEDICINE [facility] Apr 05, 2024 09:30 AM AMBULATORY - SURGERY [facility] Apr 06, 2024 09:00 AM AMBULATORY - MEDICINE [facility] Apr 06, 2024 11:30 AM AMBULATORY - SURGERY [facility] Apr 17, 2024 03:19 PM AMBULATORY - MEDICINE [facility] Apr 21, 2024 01:30 PM AMBULATORY - PSYCHIATRY [facility] Apr 30, 2024 04:11 PM AMBULATORY - NONE [facility] May 04, 2024 12:29 AM AMBULATORY - NONE [facility] May 09, 2024 08:30 AM AMBULATORY - NEUROLOGY [facility] May 16, 2024 02:00 PM AMBULATORY - NEUROLOGY [facility] May 19, 2024 10:00 AM AMBULATORY - MEDICINE [facility] May 25, 2024 12:00 PM AMBULATORY - SURGERY [facility] Jun 20, 2024 12:02 PM AMBULATORY - MEDICINE [facility] Jun 28, 2024 02:30 PM AMBULATORY - REHAB MEDICIN E [facility] Jun 30, 2024 08:30 AM AMBULATORY - PSYCHIATRY [facility] Jul 08, 2024 01:30 PM AMBULATORY - MEDICINE [facility] Aug 10, 2024 03:00 PM AMBULATORY - PSYCHIATRY [facility] Aug 11, 2024 11:00 AM AMBULATORY - MEDICINE [facility] Lab Results: +/- 30 days of the encounter This section includes the Chemistry and Hematology Lab Results on record with [place] for the patient. Radiology Reports and Pathology Reports are provided separately, in subsequent sections. Lab Results This section contains the Chemistry/Hematology Results that were resulted 30 days before or 30 daysafter the date of the Encounter. Date/Time Source Result Type Result - Unit Interpretation Reference Range Comment Feb 23, 2024 11:00 AM [facility] TEST URINE (MA-STL) Specimen Type: URINE No comment entered. Ordering Provider: ANGEL OGDEN Report Released Date/Time: Feb 23, 2024 10:27 AM Reporting Lab: [address] [address] Performing Lab: [address] [address] Qualitative Test NEG NEGATIVE Feb 23, 2024 11:00 AM [facility] URINALYSIS W/ CX REFLEX (STL-PB) Specimen Type: URINE No comment entered. Ordering Provider: ANGEL OGDEN Report Released Date/Time: Feb 23, 2024 10:27 AM Reporting Lab: [address] [address] Performing Lab: [address] [address] URINE COLOR Light-Yellow Yellow U.BILIRUBIN Negative mg/dL Negative U.PH 6.5 5.0-8.0 APPEARANCE Clear Clear U.NITRITE Negative mg/dL Negative URN.GLUCOSE Normal mg/dL Negative URN.PROTEIN Negative mg/dL Negative-20 URN.UROBILINOGEN 2 mg/dL H Normal URN.BLOOD Negative mg/dL Negative-Tr lupillo URN.KETONES Negative mg/dL Negative-Tr lupillo URN.LEUK.EST. Negative mg/dL Negative-Tr lupillo URN.SPECIFIC GRAVITY 1.017 1.005-1.029 Feb 23, 2024 10:25 AM [facility] TROPONIN I Specimen Type: PLASMA Comment: No hemolysis noted. Ordering Provider: ANGEL OGDEN Report Released Date/Time: Feb 23, 2024 10:27 AM Reporting Lab: [facility] [address] [facility] [address] Performing Lab: [facility] [address] [place] [phone] TROPONIN I <0.010 ng/mL 0-0.033 Feb 23, 2024 10:25 AM [facility] TSH (MA-PB) Specimen Type: SERUM No comment entered. Ordering Provider: ANGEL OGDEN Report Released Date/Time: Feb 23, 2024 10:27 AM Reporting Lab: [facility] [address] [place] [phone] Performing Lab: [address] [address] TSH 1.000 u[IU]/mL 0.47-5 Feb 23, 2024 10:25 AM [facility] MAGNESIUM Specimen Type: PLASMA Comment: No hemolysis noted. Ordering Provider: ANGEL OGDEN Report Released Date/Time: Feb 23, 2024 10:27 AM Reporting Lab: [facility] [address] [place] [phone] Performing Lab: [address] [address] MAGNESIUM 1.9 mg/dL 1.6-2.6 Feb 23, 2024 10:25 AM [facility] COMPREHENSIVE METABOLIC PANEL Specimen Type: PLASMA Comment: No hemolysis noted. Ordering Provider: ANGEL OGDEN Report Released Date/Time: Feb 23, 2024 10:27 AM Reporting Lab: [address] [address] Performing Lab: [address] [address] CREATININE 1.14 mg/dL H 0.6-1.1 UREA NITROGEN [...] 61.6 >60 Feb 23, 2024 10:25 AM [facility] CBC Specimen Type: BLOOD No comment entered. Ordering Provider: ANGEL OGDEN Report Released Date/Time: Feb 23, 2024 10:27 AM Reporting Lab: [address] [address] Performing Lab: [address] [address] WBC 4.4 10*3/uL 3.6-11.2 RBC 5.09 10*6/uL [...] 10*3/uL 0.00-0.60 BASOPHILS, ABSOLUTE 0.03 10*3/uL 0.00-0.20 Feb 23, 2024 10:25 AM [facility] PHOSPHOROUS Specimen Type: PLASMA Comment: No hemolysis noted. Ordering Provider: ANGEL OGDEN T Report Released Date/Time: Feb 23, 2024 10:27 AM Reporting Lab: [facility] [address] [facility] [address] Performing Lab: [facility] [address] [facility] [place] [address] PHOSPHOROUS 2.6 mg/dL 2.3-4.7 Vital Signs: All taken on the encounter date This section contains inpatient and outpatient Vital Signs collected on the date of the Encounter. Date/Time Temperature Pulse Blood Pressure Respiratory Rate SP02 Pain Height Weight Body Mass Index Source Feb 23, 2024 03:50 PM 100 100/64 [facility] Feb 23, 2024 02:00 PM 104 117/83 [facility] Feb 23, 2024 01:21 PM 94 109/61 [facility] Feb 23, 2024 12:00 PM 95 129/63 [facility] Feb 23, 2024 11:00 AM 102 116/74 [facility] Radiology Reports: +/- [...] the Encounter. The data comes from all [place] treatment facilities. Date/Time Radiology Report Provider Source Mar 23, 2024 06:55 AM TIBIA & FIBULA,LEF T, 2 VIEWS: LOUIE PAEZ AND [id number] -1980 F Exm Date: MAR 23, 2024@06:55 Req Phys: JONATHAN MARQUEZ Loc: -EMERGENCY DEPT 1ST SHIFT (R Img Loc: -MAIN RADIOLOGY SUITE Service: Unknown Screen: Patient answered no [facility], [address] [place] [address] (Case [id number] COMPLETE) TIBIA & FIBULA,LEFT, 2 VIEWS (RAD Detailed) CPT:15507 Proc Modifiers : LEFT Reason for Study: fall Clinical History: Report Status: Verified Date Reported: MAR 23, 2024 Date Verified: MAR 23, 2024 Slab Lifting Engineer E-Sig:/ES/MAURA ALVAREZ MD Report: DATE: 03/23/2024 6:55 AM EXAM: ANKLE,LEFT,3 VIEWS, FOOT,LEFT 3 VIEWS OR MORE, TIBIA & FIBULA,LEFT, 2 VIEWS ACCESSION NUMBERS: [id number], [id number] History provided does not specifically explain the clinical reason and/or location of symptoms for the requested examination. comparison: none No acute fracture or dislocation. No other significant osseous abnormality Impression: No acute fracture or malalignment identified in the left tibia-fibula, ankle, and foot. Tomy Napier MD (Tie Presser) I, Maura Alvarez, have reviewed the images and report and concur with these findings. Primary Interpreting Staff: MAURA ALVAREZ MD, Radiologist (Slab Lifting Engineer) Primary Interpreting Resident: TOMY NAPIER, Resident Physician /MAURA LAUREN [facility] Mar 23, 2024 06:55 AM ANKLE,LEFT,3 VIEWS : LOUIE PAEZ AND [id number] -1980 F Exm Date: MAR 23, 2024@06:55 Req Phys: JONATHAN MARQUEZ Loc: [facility]-EMERGENCY DEPT 1ST SHIFT (R Img Loc: [facility]-MAIN RADIOLOGY SUITE Service: Unknown Screen: Patient answered no [facility], [facility] [address] [place] [address] (Case [id number] COMPLETE) ANKLE,LEFT,3 VIEWS (RAD Detailed) CPT:99268 Proc Modifiers : LEFT Reason for Study: fall Clinical History: Report Status: Verified Date Reported: MAR 23, 2024 Date Verified: MAR 23, 2024 Slab Lifting Engineer E-Sig:/CHARLEEN/MAURA ALVAREZ MD Report: DATE: 03/23/2024 6:55 AM EXAM: ANKLE,LEFT,3 VIEWS, FOOT,LEFT 3 VIEWS OR MORE, TIBIA & FIBULA,LEFT, 2 VIEWS ACCESSION NUMBERS: [id number], [id number] History provided does not specifically explain the clinical reason and/or location of symptoms for the requested examination. comparison: none No acute fracture or dislocation. No other significant osseous abnormality Impression: No acute fracture or malalignment identified in the left tibia-fibula, ankle, and foot. Tomy Napier MD (Tie Presser) Maura Mckenna, have reviewed the images and report and concur with these findings. Primary Interpreting Staff: MAURA ALVAREZ MD, Radiologist (Slab Lifting Engineer) Primary Interpreting Resident: Resident [facility] Physician /MAURA LAUREN [facility] Mar 23, 2024 06:55 AM FOOT,LEFT 3 VIEWS OR MORE: LOUIE PAEZ AND [id number] -1980 F Exm Date: MAR 23, 2024@06:55 Req Phys: JONATHAN MARQUEZ Loc: [facility]-EMERGENCY DEPT 1ST SHIFT (R Img Loc: [facility]-MAIN RADIOLOGY SUITE Service: Unknown Screen: Patient answered no [facility], [address] [place] [address] (Case [id number] COMPLETE) FOOT,LEFT 3 VIEWS OR MORE (RAD Detailed) CPT:48657 Proc Modifiers : LEFT Reason for Study: fall Clinical History: Report Status: Verified Date Reported: MAR 23, 2024 Date Verified: MAR 23, 2024 Slab Lifting Engineer E-Sig:/ES/MAURA ALVAREZ MD Report: DATE: 03/23/2024 6:55 AM EXAM: ANKLE,LEFT,3 VIEWS, FOOT,LEFT 3 VIEWS OR MORE, TIBIA & FIBULA,LEFT, 2 VIEWS ACCESSION NUMBERS: [id number], [id number] History provided does not specifically explain the clinical reason and/or location of symptoms for the requested examination. comparison: none No acute fracture or dislocation. No other significant osseous abnormality Impression: No acute fracture or malalignment identified in the left tibia-fibula, ankle, and foot. Tomy Napier MD (Tie Presser) Maura Mckenna, have reviewed the images and report and concur with these findings. Primary Interpreting Staff: MAURA ALVAREZ MD, Radiologist (Slab Lifting Engineer) Primary Interpreting Resident: Resident [facility] Physician /MAURA LAUREN [facility] Feb 23, 2024 12:[address] ANGIO HEAD AND NECK -P: LOUIE PAEZ AND [id number] -1980 F Exm Date: FEB 23, 2024@12:44 Req Phys: ROBIN OGDEN Loc: [facility]-EMERGENCY DEPT 2ND SHIFT (R Img Loc: [facility]-CT IMAGING [facility] Service: Unknown Screen: Patient answered no [facility], [address] [place] [address] (Case [id number] COMPLETE) CT HEAD ANGIOGRAPHY W&W/O CONT (CT Detailed) CPT:42934 Contrast Media : unspecified contrast media Reason for Study: see below (Case 2028 COMPLETE) CT NECK ANGIOGRAPHY WITH AND WITH(CT Detailed) CPT:19329 Contrast Media : unspecified contrast media (Case 2029 COMPLETE) CT HEAD W/IV CONT (CT Detailed) CPT:24572 Contrast Media : Non-ionic Iodinated (Case 2030 COMPLETE) CT 3D RENDERING W INDEPENDENT WOR(CT Detailed) CPT:61966 Clinical History: Responsible Attending: jhon Attending Contact Number: er Resident Contact Number: [place] & Carotids Enter Hx and [...] 23, 2024 Date Verified: FEB 23, 2024 Slab Lifting Engineer E-Sig:/ES/Lacie Aguilar MD Report: CASE #: [id number], [id number] DATE:02/23/2024 2:21 PM CLINICAL HISTORY:Headache, speech difficulties, [...] the basilar artery. No aneurysms of the [place] are identified. Impression: No acute intracranial hemorrhage. No focal stenoses of the carotid or vertebral arteries. Both posterior communicating arteries are patent, the left larger than the right. The anterior communicating artery is patent. There are no aneurysms of the [place]. Comment: If clinical signs/symptoms are persistent, MRI of the brain is recommended for further evaluation. Primary Interpreting Staff: Lacie Aguilar MD, Radiologist (Slab Lifting Engineer) /LACIE WOLFE [facility] Feb 23, 2024 10:31 AM CHEST PORTABLE: LOUIE PAEZ AND [id number] -1980 F Exm Date: FEB 23, 2024@10:31 Req Phys: ROBIN OGDEN Loc: [facility]-EMERGENCY DEPT 2ND SHIFT (R Img Loc: [facility]-MAIN RADIOLOGY SUITE Service: Unknown Screen: Patient answered no [facility], [address] [place] [address] (Case [id number] COMPLETE) CHEST PORTABLE (RAD Detailed) CPT:31406 Proc Modifiers : Portable Reason for Study: weakness Clinical History: Report Status: Verified Date Reported: FEB 23, 2024 Date Verified: FEB 23, 2024 Slab Lifting Engineer E-Sig:/ES/MAURA ALVAREZ MD Report: EXAM: Chest x-ray [...] technique. Dictated by Mary Lou Albert DO (Tie Presser) IMaura, have reviewed the images and report and concur with these findings. Primary Interpreting Staff: MAURA ALVAREZ MD, Radiologist (Slab Lifting Engineer) Primary Interpreting Resident: MARY LOU ALBERT DO, REGIONAL ACCOUNT EXECUTIVE /MAURA SPIVEY [facility] Encounter Notes: All associated encounter notes This section contains the clinical notes associated to the Encounter. Date/Time Encounter Note(s) Provider Source Feb 23, 2024 03:41 PM EMERGENCY DEPT DIS CHARGE NOTE: LOCAL TITLE: DISCHARGE INSTRUCTIONS EMERGENCY DEPT STL STANDARD TITLE: EMERGENCY DEPT DISCHARGE NOTE DATE OF NOTE: FEB 23, 2024@15:41:48 ENTRY DATE: FEB 23, 2024@15:41:48 AUTHOR: ROBIN OGDEN EXP COSIGNER: URGENCY: STATUS: COMPLETED DISCHARGE INSTRUCTIONS [...] Department visit. You were treated today by Gustavo, . YOU ARE THE MOST IMPORTANT FACTOR IN YOUR RECOVERY. Follow the provided instructions carefully. CONTACT INFORMATION: -Hospital Information: [facility] - [facility] [address] [phone] -CRISIS Line: If you are having thoughts of harming yourself or thoughts of suicide immediately call the [place] Crisis line at [phone] -Nurse Line: If you have any questions regarding your health or symptoms please contact the nurse line at [phone] -General Help: Any questions or concerns, call [place] Clinical Contact Center - [phone]. Ask to speak to a doctor Thursday thru Thursday 8a-4:30p - VISIT NOTES: If you had special tests, such as EKG's or X-rays, we will review them again within 24 hours. We will call you if there are any new suggestions. - FOLLOW APPOINTMENT INFORMATION: It is important that you keep your scheduled appointments. If you have questions, or if you need to Make, Change or Cancel an Appointment or relay a message to your Primary Care or Specialty Care Provider please call [phone]. If you are not already established with a [place] primary residential care officer, an administrative request has been placed to offer that to you. You will recieve a notification for follow-up to be connected with a health care provider. Future Appointments Future Appointments List not available MEDICATION INFORMATION: Take your medicines as prescribed. If you do not understand any of your medicines, please ask questions. If you think you may not be able to fern picker your medicine, please let us know so [...] Team to have your Medication List reviewed. Medicines Medication List not available - This Information Is About Your Illness and Diagnosis - MIGRAINE HEADACHE Migraine headaches usually start as [...] you have any new or bothersome symptoms. - Contact your health care provider as soon as possible if you have: -Concerns for an emergency medical condition -Uncontrolled pain or other life-threatening symptoms -Any worries or concerns -Other: END OF INSTRUCTIONS /charleen/ ROBIN OGDEN MD STAFF PHYSICIAN Signed: 02/23/2024 15:41 ROBIN OGDEN [facility] Feb 23, 2024 11:57 AM [facility] NOTE : LOCAL TITLE: STATUS UPDATE REVIEW ST[facility]ARD [facility] DATE OF NOTE: FEB 23, 2024@11:57:05 ENTRY DATE: FEB 23, 2024@11:57:06 AUTHOR: ROBIN OGDEN EXP COSIGNER: URGENCY: STATUS: COMPLETED The following data was entered: Laboratory Test: Qualitative Test Collected On: Feb 23, 2024@11:00 Result: NEG QUAL. Reference Range: Ref: NEGATIVE Current status: DATE STATE DETAILS MAY 27, 2022@15:33:36 MEDICALLY UNABLE TO CONCEIVE: YES MEDICAL REASON: Permanent female sterilization A review of the patient's chart indicates that a /intentions/contr aception status update is not needed at this time. /charleen/ ROBIN OGDEN MD STAFF PHYSICIAN Signed: 02/23/2024 11:57 ROBIN OGDEN [facility] Feb 23, 2024 10:12 AM PHYSICIAN EMERGENC Y DEPT NOTE: LOCAL TITLE: EMERGENCY DEPARTMENT STL STANDARD TITLE: PHYSICIAN EMERGENCY DEPT NOTE DATE OF NOTE: FEB 23, 2024@10:12 ENTRY DATE: FEB 23, 2024@10:12:09 AUTHOR: ROBIN OGDEN EXP COSIGNER: URGENCY: STATUS: COMPLETED TRIAGE CHIEF COMPLAINT As Written By Triage Nurse and Copied From Triage Nurse Note: LOCAL TITLE: EMERGENCY DEPARTMENT TRIAGE NOTE STANDARD TITLE: EMERGENCY DEPT TRIAGE NOTE DATE OF NOTE: FEB 23, 2024@09:41 ENTRY DATE: FEB 23, 2024@09:41:36 AUTHOR: GARRETT MENDOSA EXP COSIGNER: URGENCY: STATUS: COMPLETED Emergency Department/Urgent Care Center Triage Patient age:43 Sex: FEMALE On arrival patient was: AMBULATORY Patient phone number: Allergies: DIPHENHYDRAMINE, COMPAZINE, NICODERM TRANSDERMAL, NICORETTE 2MG GUM, LOZENGES CLINDAMYCIN Subjective/Chief Complaint: muscle twitching, dizziness, memory loss Objective: Pt to ED with the above complaints, worsening over the past few weeks. pt reported recent changes in medications, as well as recent loss of her father. pt appeared awake and alert. oriented x 4. VSS. no distress noted. The patient is not a fall risk. HPI: is a 43-year-old female presenting with dizziness, memory loss, muscle twitching, and speech changes. She states these started approximately 2 to 3 months ago. She associates the symptoms with a cortisone injection she got approximately 3 weeks ago in her spine. She she also associates the symptoms with an increase in her gabapentin. Symptoms worse with activity better with rest. She denies any pain including chest pain or abdominal pain. REVIEW OF SYSTEMS: See HPI for further details. All 10 systems reviewed and otherwise negative unless otherwise detailed herein. PAST MEDICAL HISTORY: 1) Tobacco use 2) Major depressive disorder 3) Fibromyalgia 4) Obstructive sleep apnea 5) Exposure to potentially hazardous substance CURRENT MEDICATIONS: Active Outpatient Medications (including Supplies): Active Outpatient Medications Status 1) GABAPENTIN 300MG CAP TAKE TWO CAPSULES BY MOUTH THREE ACTIVE (S) TIMES A DAY FOR NERVE PAIN 2) SERTRALINE HCL 100MG TAB TAKE ONE TABLET BY MOUTH ACTIVE ONCE A DAY FOR MOOD No medications found.. I have reviewed the patient's medication list with the patient and/or his/her care-crew leader/control room operator. Any medication discrepancies have been resolved. Patient will be provided with an updated list of his/her medication(s). SURGICAL HISTORY: not pertinent FAMILY HISTORY: not pertinent SOCIAL HISTORY: Social History Main Topics: Smoking status: No data available for: Current Tobacco User Alcohol Use: not indorsed ____ Illicit Drug Use: not indorsed Sexual Activity: Other Topics of Concern: Child bearing age: N/A LMP: N/A possible: N/A ALLERGIES: Review of patient's allergies indicates: DIPHENHYDRAMINE, COMPAZINE, NICODERM TRANSDERMAL, NICORETTE 2MG GUM, LOZENGES CLINDAMYCIN PHYSICAL EXAM: VITAL SIGNS: 138/60 (02/23/2024 09:42)110 (02/23/2024 09:42)98% (01/04/2024 09:12)98 F [36.7 C] (02/23/2024 09:42)18 (02/23/2024 09:42)The OBJECT WEIGHT LAST 3 was NOT found...Contact IRM. MAThe OBJECT was NOT found...Contact IRM.PAIN ASSESSMENTThe OBJECT was NOT found...Contact IRM. Measurement DT PAIN 02/23/2024 09:42 1 CONSTITUTIONAL: No acute distress, Non-toxic appearance HENT: airway patent EYES: Conj pink, sclera clear NECK: Normal range of motion, No tenderness, Supple, No stridor, No LAD. CARDIOVASCULAR: Normal heart rate, Normal rhythm, No murmurs, No rubs, No gallops. PULMONARY/CHEST: CTA throughout, thorax stable without tenderness ABDOMEN: Bowel sounds normal, Soft, flat, No tenderness, No bruit, No masses, No pulsatile masses BACK: No tenderness, No CVA tenderness : RECTAL: EXTREMITIES: Normal range of motion, Intact distal pulses, No edema, No tenderness NEUROLOGIC: Alert & oriented/reactive, Normal motor function, Normal gait, no ataxia, No focal deficits appreciated on cursory screening exam SKIN: Warm, Dry, No erythema, No rash LABS: TEST URINE (MA-STL) URINE,RANDOM STAT WC ONCE LB #[id number] Collection time: Feb 23, 2024@11:00 Test Name Result Units Range --------- ------ ----- ----- HCG NEG QUAL. Ref: NEGATIVE URINALYSIS W/ CX REFLEX (STL-PB) URINE - CLEAN CATCH WC ONCE LB #[id number] Collection time: Feb 23, 2024@11:00 Test Name Result Units Range --------- ------ ----- ----- URINE COLOR Light-Yellow Ref: Yellow APPEARANCE Clear Ref: Clear U.PH 6.5 5.0 - 8.0 U.BILIRUBIN Negative mg/dL Ref: Negative U.NITRITE Negative mg/dL Ref: Negative URN.GLUCOSE Normal mg/dL Ref: Negative URN.PROTEIN Negative mg/dL Negative - 20 URN.UROBILINOGEN 2.0 H mg/dL Ref: Normal URN.BLOOD Negative mg/dL Ref: Negative-Trace URN.KETONES Negative mg/dL Ref: Negative-Trace URN.LEUK.EST. Negative mg/dL Ref: Negative-Trace URN.SPECIFIC GRAVITY 1.017 1.005 - 1.029 CBC BLOOD STAT WC ONCE LB #[id number] Collection time: Feb 23, 2024@10:25 Test Name Result Units Range --------- ------ ----- ----- WBC 4.4 10*3/uL 3.6 - 11.2 RBC 5.09 H 10*6/uL 3.60 - 5.00 HGB 16.2 H g/dL 11.0 - 14.9 HCT 48.2 H % 32.6 - 43.4 MCV 94.7 fL 80.0 - 100.0 MCH 31.8 pg 27.0 - 34.0 MCHC 33.6 g/dL 33.0 - 36.0 RDW 12.9 % 11.8 - 15.1 PLT 208 10*3/uL 150 - 400 MPV 11.3 H fL 7.5 - 11.2 NEUTROPHILS, AUTO % 71 % LYMPHOCYTES, AUTO % 8 % MONOCYTES, AUTO % 14 % EOSINOPHILS, AUTO % 6 % BASOPHILS, AUTO % 1 % NEUTROPHILS, ABSOLUTE 3.13 10*3/uL 2.10 - 8.00 LYMPHOCYTES, ABSOLUTE 0.37 L 10*3/uL 0.77 - 4.50 MONOCYTES, ABSOLUTE 0.61 10*3/uL 0.19 - 0.80 EOSINOPHILS, ABSOLUTE 0.27 10*3/uL 0.00 - 0.60 BASOPHILS, ABSOLUTE 0.03 10*3/uL 0.00 - 0.20 COMPREHENSIVE METABOLIC PANEL GREEN LI/HEP BLD/PLAS PLASMA STAT WC ONCE LB #[id number] Collection time: Feb 23, 2024@10:25 Test Name Result Units Range --------- ------ ----- ----- SODIUM 136 mEq/L 136 - 145 POTASSIUM 3.9 mEq/L 3.5 - 5 CHLORIDE 101 mEq/L 98 - 107 UREA NITROGEN 11.9 mg/dL 9.0 - 25.0 CREATININE 1.14 H mg/dL 0.6 - 1.1 CALCIUM 9.9 mg/dL 8.4 - 10.4 PHOSPHOROUS 2.6 mg/dL 2.3 - 4.7 MAGNESIUM 1.9 mg/dL 1.6 - 2.6 PROTEIN 8.5 g/dL 6 - 8.6 ALBUMIN 4.8 g/dL 3.4 - 5 ALKALINE PHOSPHATASE 64 U/L 40 - 150 ALT/SGPT 17 U/L 8 - 40 AST/SGOT 16 U/L 5 - 34 TOTAL BILIRUBIN 0.4 mg/dL 0.2 - 1.2 CARBON DIOXIDE 22 mEq/L 22 - 31 GLUCOSE 91 mg/dL 72 - 99 TROPONIN I <0.010 ng/mL 0 - 0.033 EGFR (CKD-EPI 2020) 61.6 Ref: >=60 TSH (MA-PB) GOLD/RED SST SERUM ANIKA WC ONCE LB #[id number] Collection time: Feb 23, 2024@10:25 Test Name Result Units Range --------- ------ ----- ----- TSH 1.000 uIU/mL 0.47 - 5 RADIOLOGY: CHEST PORTABLE Exm Date: FEB 23, 2024@10:31 Req Phys: ROBIN OGDEN Loc: -EMERGENCY DEPT 2ND SHIFT (R Img Loc: -MAIN RADIOLOGY SUITE Service: Unknown Screen: Patient answered no [facility], [facility] [address] [place] [address] (Case [id number] COMPLETE) CHEST PORTABLE (RAD Detailed) CPT:11950 Proc Modifiers : Portable Reason for Study: weakness Clinical History: Report Status: Verified Date Reported: FEB 23, 2024 Date Verified: FEB 23, 2024 Slab Lifting Engineer E-Sig:/ES/MAURA ALVAREZ MD Report: EXAM: Chest x-ray [...] within the limitations of AP portable technique. ECG IMPRESSION:nsr rate of 93, nonspecific st abnormality ED COURSE & MEDICAL DECISION MAKING: Nursing notes, medications, vital signs, allergies and pertinent labs & imaging studies reviewed (see chart for details) with lab results reviewed with patient and family/caregivers at bedside and radiology results reviewed with patient and any family/caregivers at bedside. Stable, alert, nontoxic, nonfocal, with reassuring work-up, she was seen by neurology who recommends outpatient follow-up, her headache improved here with Tylenol, Toradol, and dexamethasone, as well as IV fluids, offered admission but she prefer to go home, will have her follow-up with neurology outpatient Clinical information obtained from an independent historian. History obtained from or confirmed by: ___spouse ___parent ___guardian ___family ___friend ___EMS ___other: Discussed with radiology regarding test interpretation imaging: I performed an independent interpretation of: _x__EKG _x__rhythm strip _x__plain x-ray ___ultrasound _x__CT scan ___MRI ___other Patient's care impacted by: ___Diabetes ___Hypertension ___Cancer ___other: Patient's care is significantly limited by social determinants of health including, but not limited to: ___inadequate housing ___low income ___alcoholism and drug addiction in patient or family ___problems related to primary support group ___unemployment ___problems with employment ___language barrier ___lack of transportation ___psychiatric disease ___other social determinants of health: External records reviewed: ___Inpatient records ___office records _x__outpatient records ___prior outpatient labs ___prior outpatient radiology ___primary care record ___outside ED record ___PMD referral ___outside ER ___urgent care referral ___other: Management of the patient was discussed with: ___Hospitalist ___Consultant ___Behavioral health provider ___Primary care provider ___Other: The following testing was considered but ultimately was not performed after discussion with the patient/family: I considered prescription management with the following but ultimately did not prescribe: ___Pain medication ___Antiviral ___Antibiotic ___Other: ___I considered admission/ observation but decided upon discharge due to: hospitalization not required FIELD REPORTER SERVICE/TIME: MEDICATIONS GIVEN IN ED: [ ] YES [ ] NO DIFFERENTIAL DIAGNOSES CONSIDERED: Stroke versus electrolyte normality versus anemia versus arrhythmia versus polypharmacy versus BPV versus fibromyalgia versus other DECISION to ADMIT / DISCHARGE TIME: 10:22 AM DISPOSITION CONDITION:[x ] Improved [ ] Unchanged [ ] Deteriorated CLINICAL IMPRESSION: 1 -dizziness 2 -weakness 3 -memory loss DISCHARGE INSTRUCTIONS AND PATIENT-DIRECTED FOLLOW-UP RECOMMENDATIONS: DIET: regular ACTIVITY: ad robbi NEW MEDS: MEDICATION RECONCILIATION: CONTINUE ALL PRESCRIBED MEDICATIONS DIRECTED EXCEPT: FOLLOW-UP WITH PRIMARY INFORMATICA/SPECIALIST: routine in 1-2 weeks if not improving, sooner if worse RETURN TO EMERGENCY: if any worries or concerns ADDITIONAL SIGNATURE PCP: [x ] YES [ ] NO [ ] not listed Active Outpatient Medications (including Supplies): Active Outpatient Medications Status 1) GABAPENTIN 300MG CAP TAKE TWO CAPSULES BY MOUTH THREE ACTIVE (S) TIMES A DAY FOR NERVE PAIN 2) SERTRALINE HCL 100MG TAB TAKE ONE TABLET BY MOUTH ACTIVE ONCE A DAY FOR MOOD /es/ ROBIN OGDEN MD STAFF PHYSICIAN Signed: 02/23/2024 15:43 Receipt Acknowledged By: 02/24/2024 09:54 /es/ AVERY Sidhu PA-C, [facility] Feb 23, 2024 09:41 AM EMERGENCY DEPT TRI AGE NOTE: LOCAL TITLE: EMERGENCY DEPARTMENT TRIAGE NOTE STANDARD TITLE: EMERGENCY DEPT TRIAGE NOTE DATE OF NOTE: FEB 23, 2024@09:41 ENTRY DATE: FEB 23, 2024@09:41:36 AUTHOR: GARRETT MENDOSA EXP COSIGNER: URGENCY: STATUS: COMPLETED EMERGENCY DEPARTMENT TRIAGE NOTE Has ADDENDA Emergency Department/Urgent Care Center Triage Patient age:43 Sex: FEMALE On arrival patient was: AMBULATORY Patient phone number: Allergies: DIPHENHYDRAMINE, COMPAZINE, NICODERM TRANSDERMAL, NICORETTE 2MG GUM, LOZENGES CLINDAMYCIN Subjective/Chief Complaint: muscle twitching, dizziness, memory loss Objective: Pt to ED with the above complaints, worsening over the past few weeks. pt reported recent changes in medications, as well as recent loss of her father. pt appeared awake and alert. oriented x 4. VSS. no distress noted. The patient is not a fall risk. BP: P: R: WT: T: HT: Temperature 98 F (36.7 C) Pulse 110 Respirations 18 Blood Pressure 138/60 Pain scale recorded: 1 Pulse Oximetry 96 Room Air Last normal menstrual period (LNMP): Feb Sepsis Screening Evaluation Emergency Severity Index (WILLIAMS) level Level 3 Current Medications: Active Outpatient Medications (including Supplies): Active Outpatient Medications Status 1) GABAPENTIN 300MG CAP TAKE TWO CAPSULES BY MOUTH THREE ACTIVE (S) TIMES A DAY FOR NERVE PAIN 2) SERTRALINE HCL 100MG TAB TAKE ONE TABLET BY MOUTH ACTIVE ONCE A DAY FOR MOOD Current Problems: 1) Tobacco use 2) Major depressive disorder 3) Fibromyalgia 4) Obstructive sleep apnea 5) Exposure to potentially hazardous substance Suicide Screen: [place] Suicide Severity Rating Scale (C-SSRS) screener 1. [...] required due to responses to other questions. /charleen/ GARRETT MENDOSA RN BSN REGISTERED NURSE Signed: 02/23/2024 09:45 02/23/2024 ADDENDUM STATUS: COMPLETED 1025 Assume the care of this patient into room 102-1. Patient resting in lowlock stretcher with siderails up x2, call light within reach. 20G RAC PAL initiated, blood returned. Labs @ bedside, IV flushed without difficulty. EKG performed @ bedside. NAD observed, patient remain on continuous hemodynamic monitor. 1030 ER Resident @ bedside for eval. 1040 Labs sent for processing. 1042 Xray @ bedside. 1100 Urine obtained and sent for processing. Patient resting in lowlock stretcher with siderails up x2, call light within reach. NAD observed, patient remain on continuous hemodynamic monitor. Blood Pressure: 116/74 Pulse: 102 Pulse Oximetry: 100%RA 1145 Medication given per MD order. --SODIUM CHLORIDE 0.9% INJ,SOLN 1000 ml IV LABEL@0 Indication: FOR VOLUME REPLACEMENT 1200 Patient resting in lowlock stretcher with siderails up x2, call light within reach. NAD observed, patient remain on continuous hemodynamic monitor. Blood Pressure: 129/63 Pulse: 95 Pulse Oximetry: 99%RA [address] scan via w/c with transport. [address] scan Patient resting in lowlock stretcher with siderails up x2, call light within reach. NAD observed, patient remain on continuous hemodynamic monitor. Blood Pressure: 109/61 Pulse: 94 Pulse Oximetry: 99%RA 1345 Neuro @ bedside for eval. 1400 Patient resting in lowlock stretcher with siderails up x2, call light within reach. NAD observed, patient remain on continuous hemodynamic monitor. Medication given per MD order. --ACETAMINOPHEN 1000MG/100ML (PA-F) INJ 1000MG/100ML IV ONE-TIME STAT (FOR E.R. ADMINISTRATION ONLY) Indication: FOR PAIN --SODIUM CHLORIDE 0.9% INJ,SOLN 1000 ml IV LABEL@0 Indication: FOR VOLUME REPLACEMENT Blood Pressure: 117/83 Pulse: 104 Pulse Oximetry: 99%RA 1535 Medications given per MD order. --DEXAMETHASONE INJ,SOLN 10MG/1ML IVP NOW STAT Indication: HEADACHE --KETOROLAC (IV) INJ 30MG/1ML IVP NOW STAT Indication: FOR PAIN 1550 Pt DC to home/self care at this time. Pt provided w/DC education and instructions, pt verbalizes understanding and denies any further needs at this time. Pt ambulatory to steady gait to ED WR. NAD observed. 20G PAL removed without complications and catheter intact. Blood Pressure: 100/64 Pulse: 100 Pulse Oximetry: 98%RA /charleen/ NEERU JUNIOR,MSN,RN REGISTERED NURSE Signed: 02/23/2024 15:57 GARRETT MENDOSA [facility]
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
--- OUTSIDE RECORDS SUMMARY | 2024-11-14 18:18 | XMS_ITS | Clinical Summary ---
Author Organization [facility] Address [address] [place] [address] Phone Care Team Providers Care Cloud Administrator Name Role Phone Leslie Fuller Primary Care Provider Allergies Active Allergy Reactions Criticality Noted Date Comments Diphenhydramine Other (see Comments) 02/24/2022 Prochlorperazine Unknown 02/24/2022 Medications GABAPENTIN PO Take by mouth. Active SERTRALINE HCL PO Take by mouth. Active diazePAM (Valium) 2 MG TabletIndication s:Vertigo Take 1 Tablet by mouth every 6 hours as needed for Muscle spasms or Other (vertigo). 12 Tablet 2 Active ondansetron (Zofran ODT) 4 MG TABLET DISPERSIBLE Take 1 Tablet by mouth every 8 hours as needed for Nausea - 1st line. 10 Tablet 2 Active HYDROcodone-acet aminophen (NORCO) 5-325 MG TabletIndication s:Left flank pain Take 1 Tablet by mouth every 8 hours as needed for Moderate or more severe pain. 12 Tablet 3 Active Social History Tobacco Use Types Packs/Day Years Used Date Smoking Tobacco: Every Day Cigarettes Smokeless Tobacco: Never Alcohol Use Standard Drinks/Week Comments Never 0 (1 standard drink = 0.6 oz pur e alcohol) Comments No Sex and Gender Information Value Date Recorded Sex Assigned at Not on file Legal Sex Female 10:57 AM CDT Gender Identity Not on file Sexual Orientation Not on file Last Filed Vital Signs Vital Sign Reading Time Taken Comments Blood Pressure 93/56 04/15/2024 4:04 PM CDT Pulse 64 04/15/2024 4:04 PM CDT Temperature 36.9 C (98.4 F) 04/15/2024 2:56 PM CDT Respiratory Rate 16 04/15/2024 4:04 PM CDT Oxygen Saturation 100% 04/15/2024 4:04 PM CDT Inhaled Oxygen Concentration - - Weight 59 kg (130 lb) 04/15/2024 2:56 PM CDT Height 167.6 cm (5' 6 ) 04/15/2024 2:56 PM CDT Body Mass Index 20.98 04/15/2024 2:56 PM CDT Plan of Treatment Health Maintenance Due Date Last Done Comments Hepatitis C Virus (HCV) Screening 1980 Mammogram 1981 TdaP Immunization 1981 Hepatitis B Immunization (1 of 3 - 19+ 3-dose series) 2000 Pneumococcal Immunization Co mbined (1 of 2 - PCV) 2000 Pap Smear 2002 Cervical Cancer Screening (CCS) 2011 HPV/Cotest 2011 Discussion re Starting/Frequ ency of Mammograms 2021 Influenza Immunization (#1) 2024 SARS-COV-2 Immunization ( season) 2024 Respiratory Syncytial Virus (RSV) Immunization (Adult) (1 - 1-dose 75+ series) 2056 Meningococcal Immunization (ACWY) Aged Out No longer eligible based on patient's age to complete this topic Rotavirus Immunization Aged Out No lo nger eligible based on patient's age to complete this topic Insurance MEDICAID [facility] Care Teams Cloud Administrator Relationship Specialty Start Date End Date Leslie Fuller PA [address] [place] [address] PCP - General Physician Property Handler 04/15/24
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
--- OUTSIDE RECORDS SUMMARY | 2024-11-14 18:19 | XMS_ITS | Encounter Summary ---
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 coherent and goal-directed Mood: anxious Affect: anxious and irritable Suicidal ideation: no suicidal thoughts Homicidal ideation: no homicidal thoughts Thought content: paranoid ideation Perceptions: denies hallucinations Cognition: grossly intact Insight and judgment: limited Assessment: 43 y/o female with previous history of anxiety, depression, PTSD, presenting with mixed mood symptoms in setting of chronic outpatient treatment with sertraline 100 mg and urine toxicology positive for cannabis and having started nortriptyline 2 weeks ago by neurologist. Pt also reporting having involuntary movements with concern for seizure, but per medical assessment movements thoughts to be voluntary. Symptoms prior to admission appear most consistent with bipolar mixed episode, possibly precipitated by addition of nortriptyline with norepinephrine stimulation to her ongoing sertraline dose. Appears much better after intramuscular injection of olanzapine and lorazepam and having time to sleep. DSM Diagnosis: Unspecified mood disorder, rule out bipolar I mixed with psychosis Rule out cannabis use disorder Rule out conversion disorder Treatment Plan/Recommendations: On involuntary hold. Continue 1:1 or close observation as per ED protocol. May not be discharged unless cleared by psychiatry. Recommend holding home sertraline and nortriptyline for now Olanzapine ODT 5 mg BID Olanzapine oral dissolvable tablet 5 mg every 6 hours. Anxiety agitation or insomnia. Consider contacting [facility] for outpatient psychiatry and neurology records. Patient is referred by Temi Kelley MD Long-term treatment goals: improvement in mood Prognosis and anticipated treatment duration: clinical stabilization possible in the upcoming days Psychotherapy is not currently part of the patient's treatment plan. This consultation was conducted via a secure 256 bit AES encrypted bidirectional video session. The clinician providing the service is licensed and located in the [facility], which is also the location of the patient. You have chosen to receive care through the use of telemedicine. Telemedicine enables health care providers at different locations to provide safe, effective and convenient care through the use of technology. As with any health care service, there are risks associated with the use of telemedicine, including equipment failure, poor image resolution and chief information officer issues. Risk and Benefits Do you understand the risks and benefits of telemedicine as they have explained to you? Yes Questions Have your questions regarding telemedicine been answered? Yes Consent Do you consent to the use of telemedicine in your medical care today? Yes Provider Location As a provider, I am conducting this evaluation from: [facility] I, Surinder Novoa MD, have reviewed and discussed the information above with the patient: Yes Colbert-Suicide Severity Rating Scale (C-SSRS) Admit/Consult Screen 1. Within the past month, have you wished you were or wished you could go to sleep and not wake up? No 2. Within the past month, have you actually had any thoughts of killing yourself? No 3. Have you been thinking about how you might kill yourself? No 4. Have you had these thoughts and had some intention on acting on them? No 5. Have you started to work out or worked out the details of how to kill yourself and do you intend to carry out this plan? No 6. Within the past month, have you done anything, started to do anything, or prepared to do anything to end your life? No Safety plan was not reviewed with the patient as the patient was unable or unwilling to meaningfully engage in safety planning. Medical Decision Making for this encounter: /charelen/ Maykel Ac RN RN, Patient Access Center Signed: 05/17/2024 09:28 Receipt Acknowledged By: 05/17/2024 15:41 /charleen/ Silvino Jones, PH.D. Window Installer for Suicide Prevention MAYKEL AC [facility] May 17, 2024 09:21 AM NONVA NOTE: LOCAL TITLE: [facility] SELF PRESENTING CARE COORD PLAN STANDARD TITLE: NONVA NOTE DATE OF NOTE: MAY 17, 2024@09:21 ENTRY DATE: MAY 17, 2024@09:21:29 AUTHOR: MAYKEL AC EXP COSIGNER: URGENCY: STATUS: COMPLETED Emergency Notification Intake Date Presenting to the Facility: Apr Method of Contact: Notified from ECR worklist Notification ID: [id number] [facility] Referral #: [facility] Name: Hospital: [facility] Address: City: [place] State: [place] Zip Code: Phone : [facility] Facility Point of Contact: Name: Phone: Chief complaint: CHAPMAN Primary Diagnosis: Disposition Discharged Date of discharge: Apr Discharge to home If PCP wants to review ED notes/discharge summary, specialty consults, imaging or procedure reports, should have staff request via fax on [place] letterhead to: Medical Records [facility] If PCP determines ED notes/discharge summary, consults/reports are necessary for scanning into [facility], should send to [place] Medical Records with request for scanning. /charleen/ Maykel Ac RN RN, Patient Access Center Signed: 05/17/2024 09:22 MAYKEL AC [facility]
--- OUTSIDE RECORDS SUMMARY | 2024-11-14 18:19 | XMS_ITS | Encounter Summary ---
Author Name [facility] [place] [facility] [place] [facility] [place] Address [address] [place] [address] Care Team Providers Care Development Technical Lead Name Role Phone FAHAD GUERRA Primary Care [...] AID (WNR) Nov 22, 2022 MEDICAI D [id number] [phone] LOUIE PAEZ PATIENT Selected Encounter This section includes the information on record at [place] for the Encounter. Date/Time Encounter Type Encounter Description Reason Provider Source Jun 28, 2024 02:30 PM NRV CNDJ TEST 7-8 STUDIES EMG - ELECTROMYOGRAM ICD-10-CM M48.02 Spinal stenosis, cervical region SUFI,ASIFA N IHE Encounter Template Text not used by [place] Assessments - Encounter Diagnoses This section includes the primary and secondary diagnoses documented for the Encounter. Date/Time Primary/Secondary Diagnosis Diagnosis Name Provider Source Jun 28, 2024 04:27 PM PRIMARY Spinal stenosis, cervical region SUFI,ASIFA N [facility] Plan of Treatment: Future Appointments (+ 6 months) and Future Tests (+/- 45 days) The Plan of Treatment section includes future care activities for the patient from all [place] [facility]. This section includes future appointments and future orders which are active, pending or scheduled. Future Appointments This section includes appointments that were scheduled to occur 6 months from the date of the Encounter, up to a maximum of 20 appointments. The data comes from all [place] treatment facilities. Appointment Date/Time Appointment Type Appointme nt Facility Name Jun 30, 2024 08:30 AM AMBULATORY - PSYCHIATRY [facility] Jul 08, 2024 01:30 PM AMBULATORY - MEDICINE [facility] Aug 10, 2024 03:00 PM AMBULATORY PSYCHIATRY [facility] Aug 11, 2024 11:00 AM AMBULATORY MEDICINE [facility] Sep 14, 2024 10:30 AM AMBULATORY PSYCHIATRY [facility] Sep 15, 2024 08:00 AM AMBULATORY - SURGERY [facility] Oct 19, 2024 11:00 AM AMBULATORY - MEDICINE [facility] Dec 14, 2024 11:00 AM AMBULATORY - PSYCHIATRY [facility] Lab Results: +/- 30 days of the encounter This section includes the Chemistry and Hematology Lab Results on record with [place] for the patient. Radiology Reports and Pathology Reports are provided separately, in subsequent sections. Lab Results This section contains the Chemistry/Hematology Results that were resulted 30 days before or 30 daysafter the date of the Encounter. Date/Time Source Result Type Result - Unit Interpretation Reference Range Comment Jun 20, 2024 01:20 PM [facility] URINALYSIS W/ CX REFLEX (STL-PB) Specimen Type: URINE No comment entered. Ordering Provider: PAUL CORTES Report Released Date/Time: Jun 20, 2024 12:10 PM Reporting Lab: [place] [id number] [facility] [place] [id number] Performing Lab: [address] [id number] URINE COLOR Yellow Yellow U.BILIRUBIN Negative mg/dL [...] and tobacco- related health factors from the [place] facility where the Encounter took place. Current Smoking Status This section includes the most current smoking, or tobacco-related health factor, from the [place] facility where the Encounter took place. Date/Time Current Smoking Status Comment Oliver carter Dec 01, 2022 11:30 AM VA-TOBACCO USER EVERY DAY [facility] Tobacco Use History This section includes a history of the smoking, or tobacco-related health factors, that were collected on or before the date of the Encounter. The data comes from the [place] facility where the Encounter took place. Date/Time Smoking Status/Tobacco Use Comment F acility Dec 01, 2022 11:30 AM VA-TOBACCO USE ADVICE [facility] Dec 01, 2022 11:30 AM VA-TOBACCO USE FAMILY AND DIVORCE LEGAL ASSISTANT NO [facility] Dec 01, 2022 11:30 AM VA-TOBACCO USE MED NO [facility] Dec 01, 2022 11:30 AM VA-TOBACCO USE WI 30 MIN OF WAKEUP [facility] Dec 01, 2022 11:30 AM VA-TOBACCO USER EVERY DAY [facility] Dec 19, 2021 09:30 AM VA-TOBACCO USE > 1 5 LESS THAN 30 YEARS [facility] Dec 19, 2021 09:30 AM VA-TOBACCO USE ADVICE [facility] Dec 19, 2021 09:30 AM VA-TOBACCO USE FAMILY AND DIVORCE LEGAL ASSISTANT NO [facility] Dec 19, 2021 09:30 AM VA-TOBACCO USE MED NO [facility] Dec 19, 2021 09:30 AM VA-TOBACCO USE WI 30 MIN OF WAKEUP [facility] Dec 19, 2021 09:30 AM VA-TOBACCO USER EVERY DAY [facility] January 11, 2021 11:30 AM VA-TOBACCO USE > 1 5 LESS THAN 30 YEARS [facility] January 11, 2021 11:30 AM VA-TOBACCO USE ADVICE [facility] January 11, 2021 11:30 AM VA-TOBACCO USE FAMILY AND DIVORCE LEGAL ASSISTANT NO [facility] January 11, 2021 11:30 AM VA-TOBACCO USE MED YES [facility] January 11, 2021 11:30 AM VA-TOBACCO USE [place] 30 MIN OF WAKEUP [facility] January 11, 2021 11:30 AM VA-TOBACCO USER EVERY DAY [facility] Pathology Reports: +/- 30 days of the [...] the Encounter. The data comes from all [facility]. Date/Time Pathology Report Provider Source Jun 20, 2024 01:20 PM LR MICROBIOLOGY RE PORT: Accession [UID]: [id number] [[id number]] Received: Jun 20, 2024@13:39 Collection sample: URINE,CLEAN CATCH Collection date: Jun 20, 2024 13:20 Site/Specimen: URINE Provider: PAUL CORTES Test(s) ordered: C&S URINE..................... completed: Jun 22, 2024 09:10 * BACTERIOLOGY FINAL REPORT => Jun 22, 2024 09:11 TECH CODE: [id number] CULTURE RESULTS: ESCHERICHIA COLI - Quantity: >100,000 CFU/ML Comment: SENSITIVITIES PENDING 06/21/24 [facility] Susceptibilities Complete 06/22/24 [facility] ANTIBIOTIC SUSCEPTIBILITY TEST RESULTS: ESCHERICHIA COLI [...] <=0.25 S Bacteriology Remark(s): CULTURE COMPLETE. 06/22/24 [employer] WORKER =--=--=--=--=--=--=--=--=--=- -=--=--=--=--=--=--=--=--=--= --=--=--=--=--=--=-- Performing Laboratory: Bacteriology Report Performed By: [facility]# [id number] [facility] [address] [place] [address] [facility] Encounter Notes: All associated encounter notes This section contains the clinical notes associated to the Encounter. Date/Time Encounter Note(s) Provider Source Jun 28, 2024 04:26 PM NEUROLOGY DIAGNOSTIC STUDY REPORT: LOCAL TITLE: EMG REPORT NOTE STL STANDARD TITLE: NEUROLOGY DIAGNOSTIC STUDY REPORT DATE OF NOTE: JUN 28, 2024@16:26 ENTRY DATE: JUN 28, 2024@16:26:59 AUTHOR: TERRI BACH EXP COSIGNER: URGENCY: STATUS: COMPLETED EMG data for the Nerve Conduction study has been completed Jun. Review the full report/interpretation located in [facility]. /charleen/ TERRI BACH M.D. Staff Career Placement Specialist Signed: 06/28/2024 16:28 TERRI BACH [facility] Jun 28, 2024 04:21 PM ELECTROPHYSIOLOGY DIAGNOSTIC STUDY REPORT: LOCAL TITLE: EMG PROCEDURE REPORT STL STANDARD TITLE: ELECTROPHYSIOLOGY DIAGNOSTIC STUDY REPORT DATE OF NOTE: JUN 28, 2024@16:21:06 ENTRY DATE: JUN 28, 2024@16:21:06 AUTHOR: CLINICAL,DEVICE PRO EXP COSIGNER: URGENCY: STATUS: COMPLETED PROCEDURE SUMMARY CODE: Machine Resulted DATE/TIME PERFORMED: JUN 28, 2024@14:57:2 DOCUMENT IN [facility] SEE FULL REPORT IN [facility] SIGNATURE NOT REQUIRED SEE SIGNATURE IN [facility] Administrative Closure: 06/28/2024 by: CLINICAL,DEVICE PROXY SERVICE CLINICAL,DEVICE PROXY SERVICE [facility]
--- OUTSIDE RECORDS SUMMARY | 2024-11-14 18:19 | XMS_ITS | Encounter Summary ---
Author Name [facility] [place] [facility] [place] [facility] [place] Address [address] [place] [address] Care Team Providers Care Enamel Burner Name Role Phone FAHAD GUERRA Primary Care [...] AID (WNR) Nov 22, 2022 MEDICAI D [id number] LOUIE PAEZ PATIENT Selected Encounter This section includes the information on record at [place] for the Encounter. Date/Time Encounter Type Encounter Description Reason Pro vider Source IHE Encounter Template Text not used by [place]
--- OUTSIDE RECORDS SUMMARY | 2024-11-14 18:19 | XMS_ITS | Continuity of Care Document ---
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 It does not include entries that were removed or entered in error. Problem Status Onset Date Problem Type Date of Resolution Comments Source Anxiety * (ICD-9-CM 300.00/300.09) Active Condition [facility] Anxiety disorder Active Condition [facility] Arthralgia * (ICD-9-CM 719.40) Active Condition [facility] C/O - cough Active Condition [facility] Cancer cervix - screening done Active Condition Oct 10, 2015 Entered By: CLAUDIA KELSEY Comment: NIL, HPV neg Sep 2015 [facility] Cervicalgia (SNOMED CT 29198277) Active Condition [facility] Chronic migraine Active Condition [facility] Constipation Active Condition [facility] Depression Active Condition [facility] Dysmenorrhea Active Condition [facility] Dysuria Active Condition Jun 20 Entered By: CLAUDIA KELSEY Comment: hx past pyelo, past stones, multi UTIs and r renal atrophy [facility] Epigastric pain Active Condition [facility] Exposure to potentially hazardous substance Active Condition [facility] Fibromyalgia Active Condition [facility] Fibromyalgia (SNOMED CT 55460714) Active Condition [facility] Insomnia, unspecified (ICD-9-CM 780.52) Active Condition [facility] Jaw pain Active Condition [facility] Major depressive disorder Active Condition [facility] Nicotine dependence (SNOMED CT 28559793) Active Condition [facility] Obstructive sleep apnea Active Condition Mar 07, 2016 Entered By: JOSE BARCLAY Comment: 01/2016 PSG at [facility], mild (AHI=11) [facility] Obstructive sleep apnea Active Condition [facility] Papular eruption Active Condition [facility] Systemic Lupus Erythematosus * (ICD-9-CM 710.0) Active Condition January 13 6 Entered By: CLAUDIA KELSEY Comment: please review rheumatology notes 2016 [facility] Tobacco use Active Condition [facility] Vertigo Active Condition [facility] Viral enteritis Active Condition [facility] Diagnosis: ICD-10-CM F33.1 Major depressive disorder, recurrent, moderate Active Diagnosis [facility] Diagnosis: ICD-10-CM Z63.0 Problems in relationship with spouse or partner Active Diagnosis [facility] Diagnosis: ICD-10-CM Z65.3 Problems related to other legal circumstances Active Diagnosis [facility] Diagnosis: ICD-10-CM M79.7 Fibromyalgia Active Diagnosis [facility] Diagnosis: ICD-10-CM M48.02 Spinal stenosis, cervical region Active Diagnosis [facility] Diagnosis: ICD-10-CM N10 Acute pyelonephritis Active Diagnosis [facility] Diagnosis: ICD-10-CM G43.901 Migraine, unsp, not intractable, with status migrainosus Active Diagnosis [facility] Diagnosis: ICD-10-CM R51.9 Headache, unspecified Active Diagnosis [facility] Diagnosis: ICD-10-CM G43.E09 Chronic migraine with aura, not ntrct, without stat migr Active Diagnosis [facility] Diagnosis: ICD-10-CM S93.492A Sprain of other ligament of left ankle, initial encounter Active Diagnosis [facility] Diagnosis: ICD-10-CM S93.402A Sprain of unspecified ligament of left ankle, init encntr Active Diagnosis [facility] Diagnosis: ICD-10-CM G43.119 Migraine with aura, intractable, without status migrainosus Active Diagnosis [facility] Diagnosis: ICD-10-CM R53.1 Weakness Active Diagnosis [facility] Diagnosis: ICD-10-CM M47.812 Spondylosis w/o myelopathy or radiculopathy, cervical region Active Diagnosis [facility] Diagnosis: ICD-10-CM M54.2 Cervicalgia Active Diagnosis [facility] Diagnosis: ICD-10-CM Z13.5 Encounter for screening for eye and ear disorders Active Diagnosis [facility] Diagnosis: ICD-10-CM G47.33 Obstructive sleep apnea (adult) (pediatric) Active Diagnosis [facility] Medications Combined list of outpatient medications from Department of Defense and [facility] Affairs facilities.Medications provided include 1) outpatient medications from the last 15 months, and 2) patient-reported medications. Medication Details Route Status Patient Instructions Prescription Expires Prescription Number Last Dispense Date Ordering Provider Order Date Order Qty Source FAMOTIDINE 20MG TAB TAKE ONE TABLET BY MOUTH TWICE A DAY FOR GASTROES OPHAGEAL REFLUX DISEASE ORAL 04/22/2024 [id number] ROBIN OGDNE 2023 10 [facility] GABAPENTIN 300MG CAP TAKE TWO CAPSULES BY MOUTH THREE TIMES A DAY FOR NERVE PAIN ORAL ACTIVE 04/07/2025 [id number] MIKE VAZQUEZ AWN 2023 540 [facility] GABAPENTIN 300MG CAP TAKE TWO CAPSULES BY MOUTH THREE TIMES A DAY FOR NERVE PAIN ORAL DISCONT INUED BY PROVIDE R 01/28/2025 [id number] 4 EMMETT GUERRA 2023 540 [facility] GABAPENTIN 300MG CAP TAKE TWO CAPSULES BY MOUTH THREE TIMES A DAY FOR NERVE PAIN ORAL DISCONT INUED 01/03/2024 [id number] EMMETT GUERRA 2022 540 [facility] LIDOCAINE 5% PATCH APPLY 1 PATCH TO SKIN SITE ONCE A DAY APPLY PATCH AND PRESS FIRMLY FOR 10-15 SECONDS. KEEP ON FOR 12 HOURS THEN REMOVE PATCH FOR 12 HOURS. TRANSD ERMAL 12/02/2023 [id number] EMMETT GUERRA 2022 30 [facility] MECLIZINE HCL 25MG TAB TAKE ONE TABLET BY MOUTH THREE TIMES A DAY NEEDED ORAL ACTIVE RADHA KELSEY 2019 [facility] NITROFURANT OIN MONOHYDRATE /MACROCRYST ALLINE 100MG CAP,SA TAKE ONE CAPSULE BY MOUTH TWICE A DAY AFTER MEALS FOR URINARY TRACT INFECTIO N TAKE WITH FOOD UNTIL GONE. ORAL 07/20/2024 [id number] 4 DIVYA MAN HN F 2023 20 [facility] NORTRIPTYLI NE HCL 10MG CAP TAKE TWO CAPSULES BY MOUTH AT BEDTIME HEADACHE ORAL ACTIVE 04/07/2025 [id number] 5 MIKE VAZQUEZ 2023 180 [facility] NORTRIPTYLI NE HCL 10MG CAP TAKE ONE CAPSULE BY MOUTH AT BEDTIME FOR 14 DAYS, THEN TAKE TWO CAPSULES AT BEDTIME HEADACHE ORAL DISCONT INUED 04/07/2025 [id number] 4 MIKE VAZQUEZ 2023 180 [facility] PSYLLIUM PWDR,ORAL MIX 1 ROUNDED TEASPOON IN 8 OUNCES WATER/JU ICE AND DRINK BY MOUTH EVERY DAY NEEDED ORAL ACTIVE RADHA KELSEY 2018 [facility] SERTRALINE HCL 100MG TAB TAKE ONE TABLET BY MOUTH ONCE A DAY FOR MOOD ORAL ACTIVE 09/15/2025 [id number] 5 JAZ WOOTEN 2024 90 [facility] SERTRALINE HCL 100MG TAB TAKE ONE TABLET BY MOUTH ONCE A DAY FOR MOOD ORAL DISCONT INUED 07/29/2024 [id number] JAZ WOOTEN 2022 90 [facility] SERTRALINE HCL 100MG TAB TAKE ONE-HALF TABLET BY MOUTH EVERY DAY ORAL ACTIVE THOR ROSENBERG 2019 [facility] SUMATRIPTAN SUCCINATE 25MG TAB TAKE ONE TABLET BY MOUTH NEEDED FOR MIGRAINE HEADACHE TAKE AT ONSET OF HEADACHE . MAY REPEAT AFTER 2 HOURS. NOT TO EXCEED 2 TABLETS IN 24 HOURS. ORAL ACTIVE 07/09/2025 [id number] 5 EMMETT GUERRA 2023 9 [facility] SUMATRIPTAN SUCCINATE 25MG TAB TAKE ONE TABLET BY MOUTH NEEDED FOR MIGRAINE HEADACHE TAKE AT ONSET OF HEADACHE . MAY REPEAT AFTER 2 HOURS. NOT TO EXCEED 2 TABLETS IN 24 HOURS. ORAL DISCONT INUED 07/20/2024 [id number] DIVYA MAN F 2023 9 [facility] SUMATRIPTAN SUCCINATE 25MG TAB TAKE ONE TABLET BY MOUTH NEEDED FOR MIGRAINE HEADACHE TAKE AT ONSET OF HEADACHE . MAY REPEAT AFTER 2 HOURS. NOT TO EXCEED 2 TABLETS IN 24 HOURS. ORAL DISCONT INUED 04/07/2025 [id number] 4 MIKE VAZQUEZ AWNadine 2023 9 [facility] SUMATRIPTAN SUCCINATE 25MG TAB TAKE ONE TABLET BY MOUTH ONCE NEEDED FOR HEADACHE /MIGRAIN E . TAKE AT ONSET OF HEADACHE . MAY REPEAT ONCE AFTER 2 HOURS. DO NOT TAKE MORE THAN 2 TABLETS IN 24 HOURS. ORAL 05/30/2024 [id number] 4 TIMBO MONTENEGRO 2023 9 [facility] Allergies, Adverse Reactions, Alerts Combined list of allergies from Department of Defense and Veterans Affairs facilities. It does not include entries that were removed or entered in error. Substance Category Reaction Severity Reaction type Status Date Reported Comments Source BENADRYL Propensity to adverse reactions to drug (finding) Feeling agitated active 6 [facility] CLINDAMYCIN Propensity to adverse reactions to drug (finding) Eruption MILD active 2 [facility] COMPAZINE Propensity to adverse reactions to drug (finding) active 0 [facility] DIPHENHYDRAM INE Propensity to adverse reactions to drug (finding) active 0 [facility] LOZENGES Propensity to adverse reactions to drug (finding) Headache active 1 [facility] NICODERM TRANSDERMAL Propensity to adverse reactions to drug (finding) Anxiety active 1 [facility] NICORETTE 2MG GUM Propensity to adverse reactions to drug (finding) Burning sensation active 1 [facility] Results Combined list of recent chemistry, hematology and other laboratory results from Department of Defense and Veterans Affairs, ranging from 15 months to all on record, depending upon the facility. Order Name Results Value Reference Range Date Interpretation Specimen Comments Source URINALYS IS W/ CX REFLEX (STL-PB) COLOR OF URINE Yellow 06/20 Specimen Type: URINE No comment entered. Ordering Provider: PAUL CORTES Report Released Date/Time: Jun 20, 2024 12:10 PM Reporting Lab: [place] [address] Performing Lab: [address] [address] [facility] URINALYS IS W/ CX REFLEX (STL-PB) BILIRUBIN. TOTAL [PRESENCE] IN URINE BY TEST STRIP Negative mg/dL 06/20 Specimen Type: URINE No comment entered. Ordering Provider: PAUL CORTES Report Released Date/Time: Jun 20, 2024 12:10 PM Reporting Lab: [address] [address] Performing Lab: [address] [address] [facility] URINALYS IS W/ CX REFLEX (STL-PB) PH OF URINE BY TEST STRIP 6.0 5.0 - 8.0 06/20 Specimen Type: URINE No comment entered. Ordering Provider: PAUL CORTES Report Released Date/Time: Jun 20, 2024 12:10 PM Reporting Lab: [address] [address] Performing Lab: [address] [address] [facility] URINALYS IS W/ CX REFLEX (STL-PB) LEUKOCYTES [#/AREA] IN URINE SEDIMENT BY MICROSCOPY HIGH POWER FIELD >182/[HP F] 0 - 5 06/20 H Specimen Type: URINE No comment entered. Ordering Provider: PAUL CORTES Report Released Date/Time: Jun 20, 2024 12:10 PM Reporting Lab: [address] [address] Performing Lab: [address] [address] [facility] URINALYS IS W/ CX REFLEX (STL-PB) ERYTHROCYT ES [#/VOLUME] IN URINE SEDIMENT BY MICROSCOPY HIGH POWER FIELD 37 /[HPF] 0 - 5 06/20 H Specimen Type: URINE No comment entered. Ordering Provider: PAUL CORTES Report Released Date/Time: Jun 20, 2024 12:10 PM Reporting Lab: [address] [address] Performing Lab: [address] [address] [facility] URINALYS IS W/ CX REFLEX (STL-PB) APPEARANCE OF URINE Ex.Turbi d 06/20 Specimen Type: URINE No comment entered. Ordering Provider: PAUL CORTES Report Released Date/Time: Jun 20, 2024 12:10 PM Reporting Lab: [address] [address] Performing Lab: [address] [address] [facility] URINALYS IS W/ CX REFLEX (STL-PB) NITRITE [PRESENCE] IN URINE BY TEST STRIP 2+mg/dL 06/20 H Specimen Type: URINE No comment entered. Ordering Provider: PAUL CORTES Report Released Date/Time: Jun 20, 2024 12:10 PM Reporting Lab: [address] [address] Performing Lab: [address] [address] [facility] URINALYS IS W/ CX REFLEX (STL-PB) LEUKOCYTE CLUMPS [#/VOLUME] IN URINE BY AUTOMATED COUNT OCC/[HPF ] 06/20 Specimen Type: URINE No comment entered. Ordering Provider: PAUL CORTES Report Released Date/Time: Jun 20, 2024 12:10 PM Reporting Lab: [address] [address] Performing Lab: [address] [address] [facility] URINALYS IS W/ CX REFLEX (STL-PB) BACTERIA [PRESENCE] IN URINE SEDIMENT BY LIGHT MICROSCOPY OCC/[HPF ] 06/20 Specimen Type: URINE No comment entered. Ordering Provider: PAUL CORTES Report Released Date/Time: Jun 20, 2024 12:10 PM Reporting Lab: [address] [address] Performing Lab: [address] [address] [facility] URINALYS IS W/ CX REFLEX (STL-PB) EPITHELIAL CELLS [#/AREA] IN URINE SEDIMENT BY MICROSCOPY LOW POWER FIELD 3 /[HPF] 0 - 5 06/20 Specimen Type: URINE No comment entered. Ordering Provider: PAUL CORTES Report Released Date/Time: Jun 20, 2024 12:10 PM Reporting Lab: [address] [address] Performing Lab: [address] [address] [facility] URINALYS IS W/ CX REFLEX (STL-PB) GLUCOSE [MASS/VOLU ME] IN URINE BY TEST STRIP Normalmg /dL 06/20 Specimen Type: URINE No comment entered. Ordering Provider: PAUL CORTES Report Released Date/Time: Jun 20, 2024 12:10 PM Reporting Lab: [address] [address] Performing Lab: [address] [address] [facility] URINALYS IS W/ CX REFLEX (STL-PB) PROTEIN [MASS/VOLU ME] IN URINE BY TEST STRIP 70 mg/dL 06/20 H Specimen Type: URINE No comment entered. Ordering Provider: PAUL CORTES Report Released Date/Time: Jun 20, 2024 12:10 PM Reporting Lab: [place] [phone] Performing Lab: [address] [address] [facility] URINALYS IS W/ CX REFLEX (STL-PB) URN.UROBIL INOGEN Normalmg /dL 06/20 Specimen Type: URINE No comment entered. Ordering Provider: PAUL CORTES Report Released Date/Time: Jun 20, 2024 12:10 PM Reporting Lab: [address] [address] Performing Lab: [address] [address] [facility] URINALYS IS W/ CX REFLEX (STL-PB) HEMOGLOBIN [MASS/VOLU ME] IN URINE BY TEST STRIP 2+mg/dL 06/20 H Specimen Type: URINE No comment entered. Ordering Provider: PAUL CORTES Report Released Date/Time: Jun 20, 2024 12:10 PM Reporting Lab: [address] [address] Performing Lab: [address] [address] [facility] URINALYS IS W/ CX REFLEX (STL-PB) KETONES [MASS/VOLU ME] IN URINE BY TEST STRIP Negative mg/dL 06/20 Specimen Type: URINE No comment entered. Ordering Provider: PAUL CORTES Report Released Date/Time: Jun 20, 2024 12:10 PM Reporting Lab: [address] [place] [address] Performing Lab: [address] [address] [facility] URINALYS IS W/ CX REFLEX (STL-PB) URN.LEUK.E ST. 500 mg/dL 06/20 H Specimen Type: URINE No comment entered. Ordering Provider: PAUL CORTES Report Released Date/Time: Jun 20, 2024 12:10 PM Reporting Lab: [address] [address] Performing Lab: [address] [phone] URINALYS IS W/ CX REFLEX (STL-PB) SPECIFIC GRAVITY OF URINE 1.020 06/20 Specimen Type: URINE No comment entered. Ordering Provider: PAUL CORTES Report Released Date/Time: Jun 20, 2024 12:10 PM Reporting Lab: [address] [address] Performing Lab: [phone] [place] [address] URINALYS IS W/ CX REFLEX (STL-PB) *URINE FOR REFLEX CULTURE CX ORDERED AND SENT TO [facility] 06/20 Specimen Type: URINE No comment entered. Ordering Provider: PAUL CORTES Report Released Date/Time: Jun 20, 2024 12:10 PM Reporting Lab: [address] [address] Performing Lab: [phone] COMPREHE NSIVE METABOLI C PANEL CREATININE [MASS/VOLU ME] IN SERUM OR PLASMA 0.90 mg/dL 0.5 - 1.2 04/30 Specimen Type: PLASMA No comment entered. Ordering Provider: ME KEHINDE MONTENEGRO Report Released Date/Time: Apr 30, 2024 04:43 PM Reporting Lab: [address] [address] Performing Lab: [address] [address] [facility] COMPREHE NSIVE METABOLI C PANEL UREA NITROGEN [MASS/VOLU ME] IN SERUM OR PLASMA 18 mg/dL 6 - 20 04/30 Specimen Type: PLASMA No comment entered. Ordering Provider: ME KEHINDE MONTENEGRO Report Released Date/Time: Apr 30, 2024 04:43 PM Reporting Lab: [address] [address] Performing Lab: [address] [address] [facility] COMPREHE NSIVE METABOLI C PANEL GLUCOSE [MASS/VOLU ME] IN SERUM OR PLASMA 101 mg/dL 70 - 105 04/30 Specimen Type: PLASMA No comment entered. Ordering Provider: ME KEHINDE MONTENEGRO Report Released Date/Time: Apr 30, 2024 04:43 PM Reporting Lab: [address] [address] Performing Lab: [address] [address] [facility] COMPREHE NSIVE METABOLI C PANEL SODIUM [MOLES/VOL UME] IN SERUM OR PLASMA 135 meq/L 135 - 147 04/30 Specimen Type: PLASMA No comment entered. Ordering Provider: ME KEHINDE MONTENEGRO Report Released Date/Time: Apr 30, 2024 04:43 PM Reporting Lab: [address] [address] Performing Lab: [address] [address] [facility] COMPREHE NSIVE METABOLI C PANEL POTASSIUM [MOLES/VOL UME] IN SERUM OR PLASMA 3.6 meq/L 3.5 - 5.3 04/30 Specimen Type: PLASMA No comment entered. Ordering Provider: ME KEHINDE MONTENEGRO Report Released Date/Time: Apr 30, 2024 04:43 PM Reporting Lab: [address] [address] Performing Lab: [address] [address] [facility] COMPREHE NSIVE METABOLI C PANEL CHLORIDE [MOLES/VOL UME] IN SERUM OR PLASMA 106 meq/L 96 - 108 04/30 Specimen Type: PLASMA No comment entered. Ordering Provider: ME KEHINDE MONTENEGRO Report Released Date/Time: Apr 30, 2024 04:43 PM Reporting Lab: [address] [address] Performing Lab: [phone] COMPREHE NSIVE METABOLI C PANEL CARBON DIOXIDE, TOTAL [MOLES/VOL UME] IN SERUM OR PLASMA 21 meq/L 22 - 29 04/30 L Specimen Type: PLASMA No comment entered. Ordering Provider: ME KEHINED MONTENEGRO Report Released Date/Time: Apr 30, 2024 04:43 PM Reporting Lab: [address] [address] Performing Lab: [address] [phone] [address] COMPREHE NSIVE METABOLI C PANEL CALCIUM [MASS/VOLU ME] IN SERUM OR PLASMA 9.4 mg/dL 8.4 - 10.2 04/30 Specimen Type: PLASMA No comment entered. Ordering Provider: ME KEHINDE MONTENEGRO Report Released Date/Time: Apr 30, 2024 04:43 PM Reporting Lab: [address] [address] Performing Lab: [address] [phone] [address] COMPREHE NSIVE METABOLI C PANEL PROTEIN [MASS/VOLU ME] IN SERUM OR PLASMA 7.3 g/dL 04/30 Specimen Type: PLASMA No comment entered. Ordering Provider: ME KEHINDE MONTENEGRO Report Released Date/Time: Apr 30, 2024 04:43 PM Reporting Lab: [address] [address] Performing Lab: [address] [address] [facility] COMPREHE NSIVE METABOLI C PANEL ALBUMIN [MASS/VOLU ME] IN SERUM OR PLASMA 4.0 g/dL 3.5 - 5.2 04/30 Specimen Type: PLASMA No comment entered. Ordering Provider: ME KEHINDE MONTENEGRO Report Released Date/Time: Apr 30, 2024 04:43 PM Reporting Lab: [address] [address] Performing Lab: [address] [address] [facility] COMPREHE NSIVE METABOLI C PANEL BILIRUBIN. TOTAL [MASS/VOLU ME] IN SERUM OR PLASMA 0.5 mg/dL 0.1 - 1 04/30 Specimen Type: PLASMA No comment entered. Ordering Provider: ME KEHINDE MONTENEGRO Report Released Date/Time: Apr 30, 2024 04:43 PM Reporting Lab: [address] [address] Performing Lab: [address] [address] [facility] COMPREHE NSIVE METABOLI C PANEL ALKALINE PHOSPHATAS E [ENZYMATIC ACTIVITY/V OLUME] IN SERUM OR PLASMA 60 U/L 45 - 129 04/30 Specimen Type: PLASMA No comment entered. Ordering Provider: ME KEHINDE MONTENEGRO Report Released Date/Time: Apr 30, 2024 04:43 PM Reporting Lab: [address] [address] Performing Lab: [address] [phone] [facility] COMPREHE NSIVE METABOLI C PANEL ASPARTATE AMINOTRANS FERASE [ENZYMATIC ACTIVITY/V OLUME] IN SERUM OR PLASMA 14 U/L 0 - 37 04/30 Specimen Type: PLASMA No comment entered. Ordering Provider: ME KEHINDE MONTENEGRO Report Released Date/Time: Apr 30, 2024 04:43 PM Reporting Lab: [address] [address] Performing Lab: [address] [address] [facility] COMPREHE NSIVE METABOLI C PANEL ALANINE AMINOTRANS FERASE [ENZYMATIC ACTIVITY/V OLUME] IN SERUM OR PLASMA BY WITH P-5'-P 11 U/L 0 - 39 04/30 Specimen Type: PLASMA No comment entered. Ordering Provider: ME KEHINDE MONTENEGRO Report Released Date/Time: Apr 30, 2024 04:43 PM Reporting Lab: [address] [address] Performing Lab: [address] [address] [facility] COMPREHE NSIVE METABOLI C PANEL ANION GAP IN SERUM OR PLASMA 8 meq/L 4 - 16 04/30 Specimen Type: PLASMA No comment entered. Ordering Provider: ME KEHINDE MONTENEGRO Report Released Date/Time: Apr 30, 2024 04:43 PM Reporting Lab: [address] [address] Performing Lab: [address] [address] [facility] COMPREHE NSIVE METABOLI C PANEL GLOMERULAR FILTRATION RATE/1.73 SQ M.PREDICTE D [VOLUME RATE/AREA] IN SERUM, PLASMA OR BLOOD BY CREATININE -BASED FORMULA (CKD-EPI 2020) 82 04/30 Specimen Type: PLASMA No comment entered. Ordering Provider: ME KEHINDE MONTENEGRO Report Released Date/Time: Apr 30, 2024 04:43 PM Reporting Lab: [address] [address] Performing Lab: [address] [address] [facility] COVID-19 SCREENIN G PANEL ([employer] ) SARS-COV-2 (COVID-19) RNA [PRESENCE] IN RESPIRATOR Y SYSTEM SPECIMEN BY PRUDENCIO WITH PROBE DETECTION Not detected 04/30 Specimen Type: NASOPHARYNX Comment: For in vitro diagnostic use under Emergency Use Authorizati on only. The assay has not been FDA [...] do not rule out bacterial infection or co-infectio n with other viruses. The agent detected may not be the definite cause of disease. Negative results do not preclude SARS-CoV-2 and should not be used as the sole basis for treatment or other patient management decisions. Ordering Provider: ME KEHINDE MONTENEGRO Report Released Date/Time: Apr 30, 2024 04:43 PM Reporting Lab: [address] [address] Performing Lab: [address] [address] [facility] DIFF, AUTOMATE D 5-PART (& CBC) LEUKOCYTES [#/VOLUME] IN BLOOD BY AUTOMATED COUNT 13.42 10*3/uL 4.3 - 10.0 04/30 H Specimen Type: BLOOD No comment entered. Ordering Provider: ME KEHINDE MONTENEGRO Report Released Date/Time: Apr 30, 2024 04:43 PM Reporting Lab: [address] [address] Performing Lab: [address] [phone] [place] [address] DIFF, AUTOMATE D 5-PART (& CBC) ERYTHROCYT ES [#/VOLUME] IN BLOOD BY AUTOMATED COUNT 4.91 10*6/uL 3.8 - 5.0 04/30 Specimen Type: BLOOD No comment entered. Ordering Provider: ME KEHINDE MONTENEGRO Report Released Date/Time: Apr 30, 2024 04:43 PM Reporting Lab: [address] [address] Performing Lab: [address] [phone] DIFF, AUTOMATE D 5-PART (& CBC) HEMOGLOBIN [MASS/VOLU ME] IN BLOOD 15.6 g/dL 11.5 - 15.5 04/30 H Specimen Type: BLOOD No comment entered. Ordering Provider: ME KEHINDE MONTENEGRO Report Released Date/Time: Apr 30, 2024 04:43 PM Reporting Lab: [address] [address] Performing Lab: [address] [phone] [address] DIFF, AUTOMATE D 5-PART (& CBC) HEMATOCRIT [VOLUME FRACTION] OF BLOOD BY AUTOMATED COUNT 44.7 36 - 45 04/30 Specimen Type: BLOOD No comment entered. Ordering Provider: ME KEHINDE MONTENEGRO Report Released Date/Time: Apr 30, 2024 04:43 PM Reporting Lab: [address] [address] Performing Lab: [address] [address] [facility] DIFF, AUTOMATE D 5-PART (& CBC) MCV [ENTITIC VOLUME] BY AUTOMATED COUNT 91.0 fL 81 - 98 04/30 Specimen Type: BLOOD No comment entered. Ordering Provider: ME KEHINDE MONTENEGRO Report Released Date/Time: Apr 30, 2024 04:43 PM Reporting Lab: [address] [address] Performing Lab: [address] [address] [facility] DIFF, AUTOMATE D 5-PART (& CBC) MCH [ENTITIC MASS] BY AUTOMATED COUNT 31.8 pg 27.3 - 33.6 04/30 Specimen Type: BLOOD No comment entered. Ordering Provider: ME KEHINDE MONTENEGRO Report Released Date/Time: Apr 30, 2024 04:43 PM Reporting Lab: [address] [address] Performing Lab: [address] [address] [facility] DIFF, AUTOMATE D 5-PART (& CBC) MCHC [MASS/VOLU ME] BY AUTOMATED COUNT 34.9 g/dL 32.3 - 35.7 04/30 Specimen Type: BLOOD No comment entered. Ordering Provider: ME KEHINDE MONTENEGRO Report Released Date/Time: Apr 30, 2024 04:43 PM Reporting Lab: [address] [address] Performing Lab: [address] [address] [facility] DIFF, AUTOMATE D 5-PART (& CBC) PLATELETS [#/VOLUME] IN BLOOD BY AUTOMATED COUNT 200 10*3/uL 150 - 400 04/30 Specimen Type: BLOOD No comment entered. Ordering Provider: ME KEHINDE MONTENEGRO Report Released Date/Time: Apr 30, 2024 04:43 PM Reporting Lab: [address] [address] Performing Lab: [address] [address] [facility] DIFF, AUTOMATE D 5-PART (& CBC) PLATELET MEAN VOLUME [ENTITIC VOLUME] IN BLOOD BY AUTOMATED COUNT 11.1 fL 7.4 - 10.4 04/30 H Specimen Type: BLOOD No comment entered. Ordering Provider: ME KEHINDE MONTENEGRO Report Released Date/Time: Apr 30, 2024 04:43 PM Reporting Lab: [address] [address] Performing Lab: [address] [address] [facility] DIFF, AUTOMATE D 5-PART (& CBC) ERYTHROCYT E DISTRIBUTI ON WIDTH [RATIO] BY AUTOMATED COUNT 12.5 11.5 - 14.5 04/30 Specimen Type: BLOOD No comment entered. Ordering Provider: ME KEHINDE MONTENEGRO Report Released Date/Time: Apr 30, 2024 04:43 PM Reporting Lab: [address] [address] Performing Lab: [address] [address] [facility] DIFF, AUTOMATE D 5-PART (& CBC) MONOCYTES/ 100 LEUKOCYTES IN BLOOD BY AUTOMATED COUNT 5.8 0 - 8 04/30 Specimen Type: BLOOD No comment entered. Ordering Provider: ME KEHINDE MONTENEGRO Report Released Date/Time: Apr 30, 2024 04:43 PM Reporting Lab: [address] [address] Performing Lab: [address] [address] [facility] DIFF, AUTOMATE D 5-PART (& CBC) LYMPHOCYTE S [#/VOLUME] IN BLOOD BY AUTOMATED COUNT 2.44 10*3/uL 0.9 - 5.0 04/30 Specimen Type: BLOOD No comment entered. Ordering Provider: ME KEHINDE MONTENEGRO Report Released Date/Time: Apr 30, 2024 04:43 PM Reporting Lab: [address] [address] Performing Lab: [address] [address] [facility] DIFF, AUTOMATE D 5-PART (& CBC) LYMPHOCYTE S/100 LEUKOCYTES IN BLOOD BY AUTOMATED COUNT 18.2 20 - 50 04/30 L Specimen Type: BLOOD No comment entered. Ordering Provider: ME KEHINDE MONTENEGRO Report Released Date/Time: Apr 30, 2024 04:43 PM Reporting Lab: [address] [address] Performing Lab: [address] [address] [facility] DIFF, AUTOMATE D 5-PART (& CBC) MONOCYTES [#/VOLUME] IN BLOOD BY AUTOMATED COUNT 0.78 10*3/uL 0.0 - 0.8 04/30 Specimen Type: BLOOD No comment entered. Ordering Provider: ME KEHINDE MONTENEGRO Report Released Date/Time: Apr 30, 2024 04:43 PM Reporting Lab: [address] [address] Performing Lab: [phone] [place] [address] DIFF, AUTOMATE D 5-PART (& CBC) EOSINOPHIL S/100 LEUKOCYTES IN BLOOD BY AUTOMATED COUNT 5.7 0 - 5 04/30 H Specimen Type: BLOOD No comment entered. Ordering Provider: ME KEHINDE MONTENEGRO Report Released Date/Time: Apr 30, 2024 04:43 PM Reporting Lab: [address] [address] Performing Lab: [address] [phone] [place] [address] DIFF, AUTOMATE D 5-PART (& CBC) BASOPHILS/ 100 LEUKOCYTES IN BLOOD BY AUTOMATED COUNT 0.7 0 - 2 04/30 Specimen Type: BLOOD No comment entered. Ordering Provider: ME KEHINDE MONTENEGRO Report Released Date/Time: Apr 30, 2024 04:43 PM Reporting Lab: [address] [address] Performing Lab: [phone] [place] [address] DIFF, AUTOMATE D 5-PART (& CBC) NEUTROPHIL S/100 LEUKOCYTES IN BLOOD BY AUTOMATED COUNT 69.2 40 - 74 04/30 Specimen Type: BLOOD No comment entered. Ordering Provider: ME KEHINDE MONTENEGRO Report Released Date/Time: Apr 30, 2024 04:43 PM Reporting Lab: [address] [address] Performing Lab: [phone] [place] [address] DIFF, AUTOMATE D 5-PART (& CBC) EOSINOPHIL S [#/VOLUME] IN BLOOD BY AUTOMATED COUNT 0.76 10*3/uL 0.0 - 0.5 04/30 H Specimen Type: BLOOD No comment entered. Ordering Provider: ME KEHINDE MONTENEGRO Report Released Date/Time: Apr 30, 2024 04:43 PM Reporting Lab: [address] [address] Performing Lab: [address] [address] [facility] DIFF, AUTOMATE D 5-PART (& CBC) BASOPHILS [#/VOLUME] IN BLOOD BY AUTOMATED COUNT 0.10 10*3/uL 0.0 - 0.2 04/30 Specimen Type: BLOOD No comment entered. Ordering Provider: ME KEHINDE MONTENEGRO Report Released Date/Time: Apr 30, 2024 04:43 PM Reporting Lab: [address] [address] Performing Lab: [address] [address] [facility] DIFF, AUTOMATE D 5-PART (& CBC) NEUTROPHIL S [#/VOLUME] IN BLOOD BY AUTOMATED COUNT 9.29 10*3/uL 1.7 - 7.4 04/30 H Specimen Type: BLOOD No comment entered. Ordering Provider: ME KEHINDE MONTENEGRO Report Released Date/Time: Apr 30, 2024 04:43 PM Reporting Lab: [address] [address] Performing Lab: [address] [phone] DIFF, AUTOMATE D 5-PART (& CBC) NUCLEATED ERYTHROCYT ES/100 LEUKOCYTES [RATIO] IN BLOOD BY AUTOMATED COUNT 0.0 0 - 0 04/30 Specimen Type: BLOOD No comment entered. Ordering Provider: ME KEHINDE MONTENEGRO Report Released Date/Time: Apr 30, 2024 04:43 PM Reporting Lab: [address] [address] Performing Lab: [address] [address] [facility] DIFF, AUTOMATE D 5-PART (& CBC) ERYTHROCYT E DISTRIBUTI ON WIDTH [ENTITIC VOLUME] BY AUTOMATED COUNT 41.5 fL 36.5 - 45.9 04/30 Specimen Type: BLOOD No comment entered. Ordering Provider: ME KEHINDE MONTENEGRO Report Released Date/Time: Apr 30, 2024 04:43 PM Reporting Lab: [address] [address] Performing Lab: [address] [address] [facility] DIFF, AUTOMATE D 5-PART (& CBC) IMMATURE GRANULOCYT ES/100 LEUKOCYTES IN BLOOD BY AUTOMATED COUNT 0.4 0 - 2 04/30 Specimen Type: BLOOD No comment entered. Ordering Provider: ME KEHINDE MONTENEGRO Report Released Date/Time: Apr 30, 2024 04:43 PM Reporting Lab: [address] [address] Performing Lab: [address] [address] [facility] DIFF, AUTOMATE D 5-PART (& CBC) IMMATURE GRANULOCYT ES [#/VOLUME] IN BLOOD BY AUTOMATED COUNT 0.05 10*3/uL 0.0 - 0.2 04/30 H Specimen Type: BLOOD No comment entered. Ordering Provider: ME KEHINDE MONTENEGRO Report Released Date/Time: Apr 30, 2024 04:43 PM Reporting Lab: [address] [address] Performing Lab: [address] [phone] HCG QUAL, STAT URINE CHORIOGONA DOTROPIN.B ETA SUBUNIT ( TEST) [PRESENCE] IN URINE neg 04/30 Specimen Type: URINE No comment entered. Ordering Provider: ME KEHINDE MONTENEGRO Report Released Date/Time: Apr 30, 2024 04:43 PM Reporting Lab: [address] [address] Performing Lab: [address] [address] [facility] CBC LEUKOCYTES [#/VOLUME] IN BLOOD BY AUTOMATED COUNT 11.1 10*3/uL 3.6 - 11.2 04/17 Specimen Type: BLOOD No comment entered. Ordering Provider: GEORGE REICH Report Released Date/Time: Apr 17, 2024 04:07 PM Reporting Lab: [facility] [address] [facility] [address] Performing Lab: [facility] [address] [facility] [address] [facility] CBC ERYTHROCYT ES [#/VOLUME] IN BLOOD BY AUTOMATED COUNT 4.60 10*6/uL 3.60 - 5.00 04/17 Specimen Type: BLOOD No comment entered. Ordering Provider: GEORGE REICH Report Released Date/Time: Apr 17, 2024 04:07 PM Reporting Lab: [address] [address] Performing Lab: [address] [address] [facility] CBC HEMOGLOBIN [MASS/VOLU ME] IN BLOOD 14.6 g/dL 11.0 - 14.9 04/17 Specimen Type: BLOOD No comment entered. Ordering Provider: GEORGE REICH Report Released Date/Time: Apr 17, 2024 04:07 PM Reporting Lab: [address] [address] Performing Lab: [address] [address] [facility] CBC HEMATOCRIT [VOLUME FRACTION] OF BLOOD 43.5 32.6 - 43.4 04/17 H Specimen Type: BLOOD No comment entered. Ordering Provider: GEORGE REICH Report Released Date/Time: Apr 17, 2024 04:07 PM Reporting Lab: [address] [address] Performing Lab: [address] [address] [facility] CBC MCV [ENTITIC VOLUME] BY AUTOMATED COUNT 94.6 fL 80.0 - 100.0 04/17 Specimen Type: BLOOD No comment entered. Ordering Provider: GEORGE REICH Report Released Date/Time: Apr 17, 2024 04:07 PM Reporting Lab: [address] [address] Performing Lab: [address] [address] [facility] CBC MCH [ENTITIC MASS] BY AUTOMATED COUNT 31.7 pg 27.0 - 34.0 04/17 Specimen Type: BLOOD No comment entered. Ordering Provider: GEORGE REICH Report Released Date/Time: Apr 17, 2024 04:07 PM Reporting Lab: [address] [address] Performing Lab: [address] [phone] [place] [address] CBC MCHC [MASS/VOLU ME] BY AUTOMATED COUNT 33.6 g/dL 33.0 - 36.0 04/17 Specimen Type: BLOOD No comment entered. Ordering Provider: GEORGE REICH Report Released Date/Time: Apr 17, 2024 04:07 PM Reporting Lab: [address] [address] Performing Lab: [address] [address] [facility] CBC PLATELETS [#/VOLUME] IN BLOOD BY AUTOMATED COUNT 222 10*3/uL 150 - 400 04/17 Specimen Type: BLOOD No comment entered. Ordering Provider: GEORGE REICH Report Released Date/Time: Apr 17, 2024 04:07 PM Reporting Lab: [address] [address] Performing Lab: [address] [address] [facility] CBC PLATELET MEAN VOLUME [ENTITIC VOLUME] IN BLOOD BY AUTOMATED COUNT 12.5 fL 7.5 - 11.2 04/17 H Specimen Type: BLOOD No comment entered. Ordering Provider: GEORGE REICH Report Released Date/Time: Apr 17, 2024 04:07 PM Reporting Lab: [address] [address] Performing Lab: [address] [address] [facility] CBC ERYTHROCYT E DISTRIBUTI ON WIDTH [RATIO] BY AUTOMATED COUNT 13.0 11.8 - 15.1 04/17 Specimen Type: BLOOD No comment entered. Ordering Provider: GEORGE REICH Report Released Date/Time: Apr 17, 2024 04:07 PM Reporting Lab: [facility] [address] [place] [phone] Performing Lab: [facility] [address] [place] [phone] [facility] CBC LYMPHOCYTE S/100 LEUKOCYTES IN BLOOD BY AUTOMATED COUNT 28 04/17 Specimen Type: BLOOD No comment entered. Ordering Provider: GEORGE REICH Report Released Date/Time: Apr 17, 2024 04:07 PM Reporting Lab: [facility] [address] [place] [phone] Performing Lab: [facility] [address] [place] [phone] [place] [address] CBC MONOCYTES/ 100 LEUKOCYTES IN BLOOD BY AUTOMATED COUNT 8 04/17 Specimen Type: BLOOD No comment entered. Ordering Provider: GEORGE REICH Report Released Date/Time: Apr 17, 2024 04:07 PM Reporting Lab: [facility] [address] [place] [address] Performing Lab: [facility] [address] [place] [phone] [facility] CBC NEUTROPHIL S/100 LEUKOCYTES IN BLOOD BY AUTOMATED COUNT 56 04/17 Specimen Type: BLOOD No comment entered. Ordering Provider: GEORGE REICH Report Released Date/Time: Apr 17, 2024 04:07 PM Reporting Lab: [facility] [address] [place] [phone] Performing Lab: [facility] [address] [place] [phone] [facility] CBC EOSINOPHIL S/100 LEUKOCYTES IN BLOOD BY AUTOMATED COUNT 8 04/17 Specimen Type: BLOOD No comment entered. Ordering Provider: GEORGE REICH Report Released Date/Time: Apr 17, 2024 04:07 PM Reporting Lab: [facility] [address] [place] [phone] Performing Lab: [facility] [address] [place] [phone] [facility] CBC BASOPHILS/ 100 LEUKOCYTES IN BLOOD BY AUTOMATED COUNT 1 04/17 Specimen Type: BLOOD No comment entered. Ordering Provider: GEORGE REICH Report Released Date/Time: Apr 17, 2024 04:07 PM Reporting Lab: [place] [address] Performing Lab: [address] [phone] [place] [address] CBC LYMPHOCYTE S [#/VOLUME] IN BLOOD BY AUTOMATED COUNT 3.07 10*3/uL 0.77 - 4.50 04/17 Specimen Type: BLOOD No comment entered. Ordering Provider: GEORGE REICH Report Released Date/Time: Apr 17, 2024 04:07 PM Reporting Lab: [facility] [address] [place] [phone] Performing Lab: [address] [address] [facility] CBC MONOCYTES [#/VOLUME] IN BLOOD BY AUTOMATED COUNT 0.85 10*3/uL 0.19 - 0.80 04/17 H Specimen Type: BLOOD No comment entered. Ordering Provider: GEORGE REICH Report Released Date/Time: Apr 17, 2024 04:07 PM Reporting Lab: [facility] [address] [place] [phone] Performing Lab: [address] [address] [facility] CBC NEUTROPHIL S [#/VOLUME] IN BLOOD BY AUTOMATED COUNT 6.22 10*3/uL 2.10 - 8.00 04/17 Specimen Type: BLOOD No comment entered. Ordering Provider: GEORGE REICH Report Released Date/Time: Apr 17, 2024 04:07 PM Reporting Lab: [facility] [address] [place] [phone] Performing Lab: [facility] [address] [facility] [address] [facility] CBC EOSINOPHIL S [#/VOLUME] IN BLOOD BY AUTOMATED COUNT 0.86 10*3/uL 0.00 - 0.60 04/17 H Specimen Type: BLOOD No comment entered. Ordering Provider: GEORGE REICH Report Released Date/Time: Apr 17, 2024 04:07 PM Reporting Lab: [address] [address] Performing Lab: [address] [phone] [place] [address] CBC BASOPHILS [#/VOLUME] IN BLOOD BY AUTOMATED COUNT 0.10 10*3/uL 0.00 - 0.20 04/17 Specimen Type: BLOOD No comment entered. Ordering Provider: GEORGE REICH Report Released Date/Time: Apr 17, 2024 04:07 PM Reporting Lab: [address] [address] Performing Lab: [address] [phone] [place] [address] COMPREHE NSIVE METABOLI C PANEL CREATININE [MASS/VOLU ME] IN SERUM OR PLASMA 1.03 mg/dL 0.6 - 1.1 04/17 Specimen Type: PLASMA Comment: No hemolysis noted. Ordering Provider: GEORGE REICH Report Released Date/Time: Apr 17, 2024 04:07 PM Reporting Lab: [address] [address] Performing Lab: [address] [address] [facility] COMPREHE NSIVE METABOLI C PANEL UREA NITROGEN [MASS/VOLU ME] IN SERUM OR PLASMA 18.3 mg/dL 9.0 - 25.0 04/17 Specimen Type: PLASMA Comment: No hemolysis noted. Ordering Provider: GEORGE REICH Report Released Date/Time: Apr 17, 2024 04:07 PM Reporting Lab: [facility] [address] [facility] [address] Performing Lab: [facility] [address] [facility] [address] [facility] COMPREHE NSIVE METABOLI C PANEL GLUCOSE [MASS/VOLU ME] IN SERUM OR PLASMA 77 mg/dL 72 - 99 04/17 Specimen Type: PLASMA Comment: No hemolysis noted. Ordering Provider: GEORGE REICH Report Released Date/Time: Apr 17, 2024 04:07 PM Reporting Lab: [facility] [address] [facility] [address] Performing Lab: [facility] [address] [facility] [address] [facility] COMPREHE NSIVE METABOLI C PANEL SODIUM [MOLES/VOL UME] IN SERUM OR PLASMA 140 meq/L 136 - 145 04/17 Specimen Type: PLASMA Comment: No hemolysis noted. Ordering Provider: GEORGE REICH Report Released Date/Time: Apr 17, 2024 04:07 PM Reporting Lab: [facility] [address] [facility] [address] Performing Lab: [facility] [address] [facility] [address] [facility] COMPREHE NSIVE METABOLI C PANEL POTASSIUM [MOLES/VOL UME] IN SERUM OR PLASMA 3.4 meq/L 3.5 - 5 04/17 L Specimen Type: PLASMA Comment: No hemolysis noted. Ordering Provider: GEORGE REICH Report Released Date/Time: Apr 17, 2024 04:07 PM Reporting Lab: [facility] [address] [facility] [address] Performing Lab: [facility] [address] [facility] [address] [facility] COMPREHE NSIVE METABOLI C PANEL CHLORIDE [MOLES/VOL UME] IN SERUM OR PLASMA 107 meq/L 98 - 107 04/17 Specimen Type: PLASMA Comment: No hemolysis noted. Ordering Provider: GEORGE REICH Report Released Date/Time: Apr 17, 2024 04:07 PM Reporting Lab: [facility] [address] [facility] [address] Performing Lab: [facility] [address] [facility] [address] [facility] COMPREHE NSIVE METABOLI C PANEL CARBON DIOXIDE, TOTAL [MOLES/VOL UME] IN SERUM OR PLASMA 23 meq/L 22 - 31 04/17 Specimen Type: PLASMA Comment: No hemolysis noted. Ordering Provider: GEORGE REICH Report Released Date/Time: Apr 17, 2024 04:07 PM Reporting Lab: [facility] [address] [facility] [address] Performing Lab: [facility] [address] [facility] [address] [facility] COMPREHE NSIVE METABOLI C PANEL CALCIUM [MASS/VOLU ME] IN SERUM OR PLASMA 9.3 mg/dL 8.4 - 10.4 04/17 Specimen Type: PLASMA Comment: No hemolysis noted. Ordering Provider: GEORGE REICH Report Released Date/Time: Apr 17, 2024 04:07 PM Reporting Lab: [facility] [address] [facility] [address] Performing Lab: [facility] [address] [facility] [address] [facility] COMPREHE NSIVE METABOLI C PANEL PROTEIN [MASS/VOLU ME] IN SERUM OR PLASMA 7.7 g/dL 6 - 8.6 04/17 Specimen Type: PLASMA Comment: No hemolysis noted. Ordering Provider: GEORGE REICH Report Released Date/Time: Apr 17, 2024 04:07 PM Reporting Lab: [facility] [address] [facility] [address] Performing Lab: [facility] [address] [facility] [address] [facility] COMPREHE NSIVE METABOLI C PANEL ALBUMIN [MASS/VOLU ME] IN SERUM OR PLASMA 4.5 g/dL 3.4 - 5 04/17 Specimen Type: PLASMA Comment: No hemolysis noted. Ordering Provider: GEORGE REICH Report Released Date/Time: Apr 17, 2024 04:07 PM Reporting Lab: [facility] [address] [place] [phone] Performing Lab: [facility] [address] [place] [phone] [facility] COMPREHE NSIVE METABOLI C PANEL BILIRUBIN. TOTAL [MASS/VOLU ME] IN SERUM OR PLASMA 0.3 mg/dL 0.2 - 1.2 04/17 Specimen Type: PLASMA Comment: No hemolysis noted. Ordering Provider: GEORGE REICH Report Released Date/Time: Apr 17, 2024 04:07 PM Reporting Lab: [facility] [address] [place] [phone] Performing Lab: [facility] [address] [place] [phone] [facility] COMPREHE NSIVE METABOLI C PANEL ALKALINE PHOSPHATAS E [ENZYMATIC ACTIVITY/V OLUME] IN SERUM OR PLASMA 63 U/L 40 - 150 04/17 Specimen Type: PLASMA Comment: No hemolysis noted. Ordering Provider: GEORGE REICH Report Released Date/Time: Apr 17, 2024 04:07 PM Reporting Lab: [facility] [address] [facility] [address] Performing Lab: [facility] [address] [place] [phone] [facility] COMPREHE NSIVE METABOLI C PANEL ASPARTATE AMINOTRANS FERASE [ENZYMATIC ACTIVITY/V OLUME] IN SERUM OR PLASMA 15 U/L 5 - 34 04/17 Specimen Type: PLASMA Comment: No hemolysis noted. Ordering Provider: GEORGE REICH Report Released Date/Time: Apr 17, 2024 04:07 PM Reporting Lab: [facility] [address] [place] [phone] Performing Lab: [facility] [address] [phone] COMPREHE NSIVE METABOLI C PANEL ALANINE AMINOTRANS FERASE [ENZYMATIC ACTIVITY/V OLUME] IN SERUM OR PLASMA 13 U/L 8 - 40 04/17 Specimen Type: PLASMA Comment: No hemolysis noted. Ordering Provider: GEORGE REICH Report Released Date/Time: Apr 17, 2024 04:07 PM Reporting Lab: [place] [address] [place] [phone] Performing Lab: [facility] [address] [place] [phone] COMPREHE NSIVE METABOLI C PANEL GLOMERULAR FILTRATION RATE/1.73 SQ M.PREDICTE D [VOLUME RATE/AREA] IN SERUM, PLASMA OR BLOOD BY CREATININE -BASED FORMULA (CKD-EPI 2020) 69.6 60 04/17 Specimen Type: PLASMA Comment: No hemolysis noted. Ordering Provider: GEORGE REICH Report Released Date/Time: Apr 17, 2024 04:07 PM Reporting Lab: [facility] [address] [facility] [address] Performing Lab: [facility] [phone] CPK CREATINE KINASE [ENZYMATIC ACTIVITY/V OLUME] IN SERUM OR PLASMA 101 U/L 29 - 168 04/17 Specimen Type: PLASMA Comment: No hemolysis noted. Ordering Provider: GEORGE REICH Report Released Date/Time: Apr 17, 2024 04:07 PM Reporting Lab: [facility] [address] [facility] [address] Performing Lab: [facility] [address] [facility] [address] [facility] MAGNESIU M MAGNESIUM [MASS/VOLU ME] IN SERUM OR PLASMA 2.0 mg/dL 1.6 - 2.6 04/17 Specimen Type: PLASMA Comment: No hemolysis noted. Ordering Provider: GEORGE REICH Report Released Date/Time: Apr 17, 2024 04:07 PM Reporting Lab: [place] [address] [facility] [address] Performing Lab: [place] [address] [facility] [address] [facility] PROLACTI N (STL-Eff 05/31) PROLACTIN [MASS/VOLU ME] IN SERUM OR PLASMA 10.22 ng/mL 3.5 - 19.4 04/17 Specimen Type: PLASMA Comment: No hemolysis noted. Ordering Provider: GEORGE REIHC Report Released Date/Time: Apr 17, 2024 04:07 PM Reporting Lab: [place] [address] [facility] [address] Performing Lab: [place] [address] [facility] [address] [facility] Vital Signs Combined list of inpatient and outpatient Vital Signs from Department of Defense and Veterans Affairs, ranging from 12 months to all on record, depending upon the facility. Vital Sign Value Date Comments Source SYSTOLIC BLOOD PRESSURE 128 07/08/2024 13:31:59 [facility] DIASTOLIC BLOOD PRESSURE 88 07/08/2024 13:31:59 [facility] PULSE OXIMETRY 98 07/08/2024 13:31:59 [facility] WEIGHT 127 07/08/2024 13:31:59 [facility] BMI 20 kg/m2 07/08/2024 13:31:59 [facility] PAIN 5 07/08/2024 13:31:59 [facility] TEMPERATURE 99.3 07/08/2024 13:31:59 [facility] P[facility]SE 75 07/08/2024 13:31:59 [facility] RESPIRATION 18 07/08/2024 13:31:59 [facility] SYSTOLIC BLOOD PRESSURE 133 06/20/2024 12:07:00 [facility] DIASTOLIC BLOOD PRESSURE 83 06/20/2024 12:07:00 [facility] PAIN 8 06/20/2024 12:07:00 [facility] TEMPERATURE 98.4 06/20/2024 12:07:00 [facility] PULSE 114 06/20/2024 12:07:00 [facility] RESPIRATION 20 06/20/2024 12:07:00 [facility] SYSTOLIC BLOOD PRESSURE 141 05/04/2024 00:54:00 [facility] DIASTOLIC BLOOD PRESSURE 91 05/04/2024 00:54:00 [facility] PAIN 8 05/04/2024 00:54:00 [facility] TEMPERATURE 98.4 05/04/2024 00:54:00 [facility] PULSE 90 05/04/2024 00:54:00 [facility] RESPIRATION 16 05/04/2024 00:54:00 [facility] PAIN 7 04/30/2024 16:22:00 [facility] SYSTOLIC BLOOD PRESSURE 120 04/17/2024 15:36:00 [facility] DIASTOLIC BLOOD PRESSURE 80 04/17/2024 15:36:00 [facility] PAIN 6 04/17/2024 15:36:00 [facility] TEMPERATURE 98 04/17/2024 15:36:00 [facility] PULSE 75 04/17/2024 15:36:00 [facility] RESPIRATION 22 04/17/2024 15:36:00 [facility] Encounters Combined list of: 1) Encounters from Department of [facility] Affairs facilities going backup to the last 18 months, not all VA inpatient encounters are included; 2) Encounters from the Department of [facility] facilities going backup to 280 months. Location Location Details Encounter Type Encounter Number Reason For Visit Attending Provider ADM Date DC Date Status Disposition Source [facility] Outpatient Encounter [id number] 05/19 [facility] Outpatient Encounter [id number] 06/15 [facility] Outpatient Encounter [id number] DOMITILA BARCLAY JAQUAN 06/30 [facility] OFFICE O/P EST MOD 30-39 MIN [id number] Diagnos is: ICD-10- CM F33.1 Major depress dawosn disorde r, recurre nt, moderat e OCTAVIA GUERRA 07/07 [facility] EYE EXAM WITH PHOTOS [id number] Diagnos is: ICD-10- CM Z13.5 Encount er for screeni ng for eye and ear disorde rs OCTAVIA GUERRA 07/07 [facility] Outpatient Encounter [id number] Diagnos is: ICD-10- CM G47.33 Obstruc tive sleep apnea (adult) (pediat mook) LACIE MOON 07/07 [facility] IMG RTA DETC/MNTR DS PHY/QHP [id number] Diagnos is: ICD-10- CM Z13.5 Encount er for screeni ng for eye and ear disorde rs STERLING LUIS J 07/07 [facility] Outpatient Encounter [id number] 07/08 [facility] OFFICE O/P EST MOD 30-39 MIN [id number] Diagnos is: ICD-10- CM F33.1 Major depress dawson disorde r, recurre nt, moderat e JAZ WOOTEN A 07/29 [facility] Outpatient Encounter [id number] 07/31 [facility] OFFICE O/P EST LOW 20 MIN [id number] [id number] Diagnos is: ICD-10- CM F33.1 Major depress dawson disorde r, recurre nt, OCTAVIA Walker 09/08 [facility] Outpatient Encounter [id number] [id number] 09/23 [facility] Outpatient Encounter [id number] 09/24 [facility] Outpatient Encounter [id number] [id number] DOMITILA BARCLAY 10/13 [facility] OFFICE O/P EST LOW 20 MIN [id number] [id number] Diagnos is: ICD-10- CM M79.7 Fibromy manasaia OCTAVIA GUERRA 10/19 [facility] Outpatient Encounter [id number] 10/20 [facility] OFFICE O/P EST MOD 30 MIN [id number] Diagnos is: ICD-10- CM F33.1 Major depress dawson disorde r, recurre nt, moderat e JAZ WOOTEN A 10/27 [facility] Outpatient Encounter [id number] 11/01 [facility] Outpatient Encounter [id number] [id number] 11/19 [facility] Outpatient Encounter [id number] [id number] 12/02 [facility] OFFICE O/P EST MOD 30 MIN [id number] Diagnos is: ICD-10- CM M54.2 Cervica lgia OCTAVIA GUERRA 12/06 [facility] Outpatient Encounter [id number] [id number] 12/20 [facility] OFF/OP CNSLTJ NEW/EST MOD 40 [id number] [id number] Diagnos is: ICD-10- CM 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, cervica l region CARAGINE,L OUIS P 01/03 [facility] Outpatient Encounter [id number] [id number] 01/03 [facility] Outpatient Encounter [id number] [id number] 01/04 [facility] Outpatient Encounter [id number] [id number] 1 01/05 [facility] Outpatient Encounter [id number] [id number] 01/26 [facility] Outpatient Encounter [id number] [id number] 02/01 [facility] Outpatient Encounter [id number] [id number] 02/10 [facility] Outpatient Encounter [id number] [id number] 02/22 [facility] EMERGENCY DEPT VISIT MOD MDM [id number] [id number] Diagnos is: ICD-10- CM R53.1 Shawn Benitez T 02/22 [facility] Outpatient Encounter [id number] [id number] 02/22 [facility] Outpatient Encounter [id number] [id number] 02/22 [facility] OFF/OP CNSLTJ NEW/EST MOD 40 [id number] [id number] Diagnos is: ICD-10- CM G43.119 Migrain e with aura, intract able, without status migrain osus MARILOU PAINTING RT L III 02/22 [facility] Outpatient Encounter [id number] [id number] Shawn OGDEN T 02/22 [facility] Outpatient Encounter [id number] [id number] OCTAVIA GUERRANadine 03/13 [facility] EMERGENCY DEPT VISIT LOW MDM [id number] [id number] Diagnos is: ICD-10- CM S93.402 A Sprain of unspeci fied ligamen t of left ankle, init encntr Shawn OGDEN T 03/23 [facility] Outpatient Encounter [id number] [id number] 03/23 [facility] Outpatient Encounter [id number] [id number] Shawn OGDEN T 03/23 [facility] Outpatient Encounter [id number] [id number] Shawn OGDEN T 03/23 [facility] Outpatient Encounter [id number] [id number] 03/28 [facility] Outpatient Encounter [id number] [id number] 03/29 [facility] Outpatient Encounter [id number] [id number] 1 04/04 [facility] OFF/OP CNSLTJ NEW/EST LOW 30 [id number] [id number] Diagnos is: ICD-10- CM S93.492 A Sprain of other ligamen t of left ankle, initial encount er OMAR QUINTANILLA 04/05 [facility] Outpatient Encounter [id number] [id number] 04/05 [facility] OFFICE O/P EST MOD 30 MIN [id number] [id number] Diagnos is: ICD-10- CM G43.E09 Chronic migrain e with aura, not ntrct, without stat migr THOR-NORMABettieLAUREANO 04/06 [facility] OFFICE O/P EST MOD 30 MIN [id number] [id number] Diagnos is: ICD-10- CM M48.02 Spinal stenosi s, cervica l region CARAGINE,L OUIS P 04/06 [facility] Outpatient Encounter [id number] [id number] 04/08 [facility] EMERGENCY DEPT VISIT MOD MDM [id number] [id number] Diagnos is: ICD-10- CM R51.9 Headach e, unspeci fied AMARJIT REICH SOILA 04/17 [facility] Outpatient Encounter [id number] [id number] 04/17 [facility] Outpatient Encounter [id number] [id number] AMARJIT REICH [place] 04/17 [facility] Outpatient Encounter [id number] [id number] 04[facility] Outpatient Encounter [id number] [id number] 04/21 [facility] Outpatient Encounter [id number] [id number] 2 SEGUN DE LUNA M 04/21 [facility] Outpatient Encounter [id number] [id number] 04/22 [facility] EMERGENCY DEPT VISIT [facility] [id number] [id number] Diagnos is: ICD-10- CM G43.901 Migrain e, unsp, not intract able, with status migrain osus Santos MONTENEGRO H 04/30 [facility] EMERGENCY DEPT VISIT [facility] [id number] [id number] Diagnos is: ICD-10- CM G43.901 Migrain e, unsp, not intract able, with status migrain osus MELANIE PIERCE P 05/04 [facility] Outpatient Encounter [id number] [id number] 05/09 [facility] Outpatient Encounter [id number] [id number] Ny ARTISISTINE 05/09 [facility] Outpatient Encounter [id number] [id number] 05/13 [facility] Outpatient Encounter [id number] [id number] 05/16 [facility] Outpatient Encounter [id number] [id number] 05/17 [facility] Outpatient Encounter [id number] [id number] 05/18 [facility] Outpatient Encounter [id number] [id number] 05/18 [facility] Outpatient Encounter [id number] [id number] 05/23 [facility] Outpatient Encounter [id number] [id number] 05/25 [facility] [id number] [id number] Diagnos is: ICD-10- CM M48.02 Spinal stenosi s, cervica l region CARAGINE,L OUIS P 05/25 [facility] Outpatient Encounter [id number] [id number] 05/25 [facility] [address] [facility] HC PRO PHONE CALL 5-10 MIN [id number]. [id number] Diagnos is: ICD-10- CM F33.1 Major depress dawson disorde r, recurre nt, moderat e JOHNSON,MIGUEL L L 06/[address] [facility] Outpatient Encounter [id number] [id number] 06/20 [facility] Outpatient Encounter [id number] [id number] MARY MAN F 06/20 [facility] EMERGENCY DEPT VISIT LOW MDM [id number] [id number] Diagnos is: ICD-10- CM N10 Acute pyelone phritis MARY MAN F 06/20 [facility] Outpatient Encounter [id number] [id number] MARY MAN F 06/20 [facility] CASE MANAGEMENT [id number] [id number] Diagnos is: ICD-10- CM Z65.3 Problem s related to other legal circums tances Beth'ELIAS HOOKS LLEEN E 06/20 [facility] Outpatient Encounter [id number] [id number] 06/23 [facility] Outpatient Encounter [id number] [id number] 06/23 [facility] Outpatient Encounter [id number] [id number] 06/24 [facility] NRV CNDJ TEST 7-8 STUDIES [id number] [id number] Diagnos is: ICD-10- CM M48.02 Spinal stenosi s, cervica l region SUFI,ASIFA N 06/28 [facility] Outpatient Encounter [id number] [id number] 06/28 [facility] OFFICE O/P EST MOD 30 MIN [id number] [id number] Diagnos is: ICD-10- CM F33.1 Major depress dawson disorde r, recurre nt, moderat e SEGUN DE LUNA M 06/30 [facility] Outpatient Encounter [id number] [id number] 06/30 [facility] Outpatient Encounter [id number] [id number] 07/01 [facility] OFFICE O/P EST MOD 30 MIN [id number] [id number] Diagnos is: ICD-10- CM M79.7 Fibromy OCTAVIA Haider 07/08 [facility] ASSMT/REAS SESSMENT [id number] [id number] Diagnos is: ICD-10- CM Z65.3 Problem s related to other legal circums leyla CLAROSJose LESAMAXWELL VICKI 07/11 [facility] ASSMT/REAS SESSMENT [id number] [id number] Diagnos is: ICD-10- CM Z63.0 Problem s in relatio nship with spouse or partner KELLIE, MERLIN Jose 07/12 [facility] HC PRO PHONE CALL 5-10 MIN [id number] [id number] Diagnos is: ICD-10- CM Z63.0 Problem s in relatio nship with spouse or partner KELLIE, MERLIN Jose 07/18 [facility] Outpatient Encounter [id number] [id number] 07/29 [facility] Outpatient Encounter [id number] [id number] 07/29 [facility] Outpatient Encounter [id number] [id number] SEGUN DE LUNA 08/10 [facility] Outpatient Encounter [id number] [id number] 08/10 [facility] Outpatient Encounter [id number] [id number] 08/11 [facility] Outpatient Encounter [id number] [id number] 08/12 [facility] OFFICE O/P EST MOD 30 MIN [id number] [id number] Diagnos is: ICD-10- CM F33.1 Major depress dawson disorde r, recurre nt, moderat e JAZ WOOTEN 09/14 [facility] Outpatient Encounter [id number] [id number] OCTAVIA GUERRA 09/15 [facility] Outpatient Encounter [id number] [id number] HILARIO ANDERSON 09/20 [facility] Social History Combined list of available smoking, tobacco, and other social history from Department of Defense and [facility] Affairs facilities. Social History Type Response Date Comment [facility] e Tobacco smoking status NHIS VA-TOBACCO USE EVERY DAY CIGARETTES 06/30/2024 [facility] History of tobacco use [place]-TOBACCO NEVER USED OTHER TYPE 06/30/2024 [facility] History of tobacco use VA-TOBACCO USER EVERY DAY 12/01/2022 [facility] History of tobacco use OH-TOBACCO USE WI 30 MIN OF WAKEUP 12/19/2021 [facility] History of tobacco use OH-TOBACCO USE WI 30 MIN OF WAKEUP 01/11/2021 [facility] History of tobacco use [facility] TOBACCO SMOKES RECENTLY QUIT 05/30/2020 [facility] History of tobacco use [facility] TOBACCO USE 09/29/2019 [facility] History of tobacco use VA-TOBACCO USER EVERY DAY 07/14/2018 [facility] History of tobacco use CURRENT TOBACCO USER 02/22/2018 [facility] History of tobacco use TOBACCO SCREEN COMPLETED 02/19/2017 [place] [facility] History of tobacco use TOBACCO MEDICATION REFERRAL 01/14/2016 [facility] History of tobacco use TOBACCO MEDICATION REFERRAL 12/27/2014 [facility] History of tobacco use CURRENT TOBACCO USER 01/19/2014 [facility] History of tobacco use TOBACCO MEDICATION ORDERED 12/07/2012 [facility] Plan of Care List of future care activities from Department of [facility] Affairs facilities. Additional future care activities may be listed in the Assessment and Plan section. Date/Time Care Activity Care Activity Detail Facili ty 12/14/2024 AMBULATORY - PSYCHIATRY AMBULATORY - PSYC [facility]
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
[2024-11-14 18:56] VITALS: BP 103/80; BP 169/55; PULSE 75; PULSE 79; RESP 16; RESP 18; TEMP 36.9; O2SAT 100; O2SAT 99
[2024-11-14 19:02] VITALS: BP 113/75; PULSE 65; RESP 16; TEMP 36.9; O2SAT 99
--- OUTSIDE RECORDS SUMMARY | 2024-11-14 19:04 | XMS_ITS | Encounter Summary ---
Author Organization [facility] Healthcare Address [address] [place] [address] Care Team Providers Care [employer] Flatbed Driver Name Role Phone Remy Escalante TECHNICAL BUSINESS SYSTEMS ANALYST Unavailable Leslie Brand Primary Care Provider [phone] Reason for Visit * Reason Comments Vaginal [...] Description 11/14/2024 3:00 PM CDT Office Visit [facility] at [address] [address] Katherin Holland NP [address] [place] [address] [address] [place] [address] Dysuria (Primary Dx); Vaginal discharge; History of pyelonephritis; Atrophic kidney; Left flank pain Social History Tobacco Use Types Packs/Day Years Used Date Smoking Tobacco: Every Day Cigarettes Smokeless Tobacco: Never Alcohol Use Standard Drinks/Week Comments Not Currently 0 (1 standard drink = 0.6 oz pur e alcohol) Wins[place] Depression Scale Answer Date Recorded Wins[place] Depression Scale Total 13 11/28/2020 The thought [...] Body Mass Index 21.46 09/29/2024 7:24 PM CLOTH BURLER documented in this encounter Patient Instructions * [...] Large Ketones, ur, POC Negative Negative Specific [place], POC 1.020 1.003 - 1.030 Blood, ur, POC Hemolyzed, trace(A) Negative pH, ur, POC 6.5 5.0 - 8.0 Protein, ur, POC Negative Negative Urobilinogen, urine, POC 2.0(A) 0.2 - 1.0 mg/dL Nitrite, ur, POC Negative Negative Leukocytes, ur, POC Moderate(A) Negative Lot Number [id number] Urine 11/14/2024 3:23 PM CDT Katherin Holland [...] 06/20/2024 added in this encounter Care Teams [employer] Flatbed Driver Relationship Specialty Start Date End Date Leslie Brand PA [address] [place] [address] PCP - General Physician Childcare Worker 11/14/24 Remy Escalante NP Nurse Practitioner Emergency Medicine 04/06/20 documented as of this encounter
--- OUTSIDE RECORDS SUMMARY | 2024-11-14 19:04 | XMS_ITS | Clinical Summary ---
Author Organization [facility] Address [address] [place] [address] Phone Care Team Providers Care Roller Inspector Name Role Phone Leslie Fuller Primary Care [...] age to complete this topic Insurance MEDICAID [facility] Care Teams Roller Inspector Relationship Specialty Start Date End Date Leslie Fuller PA [address] [place] [address] PCP - General Physician Conveyor System Operator 04/15/24
--- OUTSIDE RECORDS SUMMARY | 2024-11-14 19:04 | XMS_ITS | Referral Summary ---
Author Organization [facility] Address [address] [place] [address] Care Team Providers Care Ammunition Supervisor Name Role Phone Remy Escalante APPLICATIONS DEVELOPMENT ANALYST Unavailable Leslie Brand Primary Care Provider Encounters Date Type Department Care Team Description 11/14/2024 3:00 PM CDT Office Visit [facility] at [address] [phone] Katherin Holland NP Dysuria (Primary Dx); Vaginal discharge; History of pyelonephritis; Atrophic kidney; Left flank pain 10/01/2024 Orders Only [facility] Medical [facility] at [address] [phone] Dee Olvera NP 09/29/2024 7:26 PM VARNISH COOKER - 09/29/2024 11:59 PM VARNISH COOKER Hospital Encounter [address] [address] Screening for STD (sexually transmitted disease); Vaginal odor; Vaginal discharge Discharge Disposition: Discharge to home or self care 09/29/2024 7:30 PM VARNISH COOKER Office Visit [facility] at [address] [phone] Dee Olvera NP Screening for [...] Patient not taking.Reported on 11/14/2024 PNV with [id number] 27 mg iron- 1 mg tabletIndicatio ns:Vitamin [...] gain and if concern will refer to dining room maid for consult. Fibromyalgia 05/24/2020 Overview (05/29/2020): Patient reports pain is controlled with gabapentin. No increased interventions during this . Supervision of high-risk , unspecified trimester 05/24/2020 Overview (09/21/2020): [x] Full MFM Care; [] Red Team [] Blue Team Referring Provider: Dr. Gege Eubanks at [place] [phone] [x] Dating Criteria: LMP 12/30/19 STACIE 10/05/20 [x] Labs: Lab Results Component Value Date ABORH A Positive 05/30/2020 IDCOOMB Negative 05/30/2020 [id number] Nonreactive 05/30/2020 LABRPR Nonreactive 05/30/2020 RUBELIGG Reactive [...] delivery: PVT [x] MOC: Desires BTL at [facility] Lucas Ramos [x] Method of feeding: [x] Process Control Manager: discussed and resources provided, pt will call her insurance company today [x] PP Depression Discussed: Social History Tobacco Use Types Packs/Day Years Used Date Smoking Tobacco: Every Day Cigarettes Smokeless Tobacco: Never Tobacco Cessation:Ready to Q uit: No Alcohol Use Standard Drinks/Week Comments Not Currently 0 (1 standard drink = 0.6 oz pur e alcohol) [place] Depression Scale Answer Date Recorded [place] Depression Scale Total 13 11/28/2020 The thought [...] cm (5' 6.5 ) 09/29/2024 7:24 PM VARNISH COOKER Body Mass Index 21.46 09/29/2024 7:24 PM VARNISH COOKER Plan of Treatment Not on file Procedures Procedure Name Priority Date/Time Associated Diagnosis Comments POCT URINALYSIS DIPSTICK Routine 11/14/2024 3:23 PM CDT Dysuria History of pyelonephritis Atrophic kidney Left flank pain N. GONORRHOEAE/C. TRACHOMATIS AMPLIFICATION Routine 09/29/2024 7:26 PM VARNISH COOKER Screening for STD (sexually transmitted disease) Vaginal odor Vaginal discharge VAGINITIS PANEL Routine 09/29/2024 7:26 PM VARNISH COOKER Screening for STD (sexually transmitted disease) Vaginal odor Vaginal discharge from Last 3 Months Results * (ABNORMAL) POCT urinalysis dipstick (11/14/2024 3:23 PM CDT) Color, Urine, POC Dark Yellow Clarity, ur, POC Cloudy(A) Clear Glucose, ur, POC Negative Negative MG/DL Bilirubin, ur, POC Negative Negative, Small, Moderate, Large Ketones, ur, POC Negative Negative Specific [place], POC 1.020 1.003 - 1.030 Blood, ur, POC Hemolyzed, trace(A) Negative pH, ur, POC 6.5 5.0 - 8.0 Protein, ur, POC Negative Negative Urobilinogen, urine, POC 2.0(A) 0.2 - 1.0 mg/dL Nitrite, ur, POC Negative Negative Leukocytes, ur, POC Moderate(A) Negative Lot Number [id number] Urine 11/14/2024 3:23 PM CDT Katherin Holland NP POINT OF CARE TEST ORDERAB LES Final Result * N. gonorrhoeae/C. trachomatis Amplification Vaginal (09/29/2024 7:26 PM VARNISH COOKER) Pathologist [facility] C. trachomatis Not Detected [facility] Comment:Testing performed by : [facility], [address] [place] [address]., [id number] N. gonorrhoeae Not Detected CHANDAN GARCIA Comment: Interpretive Data This assay detects Chlamydia trachomatis and Neisseria gonorrhoeae by nucleic acid amplification testing (NAAT). This assay has been cleared by the [place] Food and Drug administration. The performance characteristics of this test have been verified by the [facility] Molecular Infectious Disease laboratory. The performance characteristics of this test have not been evaluated in individuals less than 14 years of age. Current Interpretive Data was last revised on 2023. Testing performed by: [facility], [address] [place] [address]., [id number] Vaginal (None) 09/29/2024 7: 26 PM VARNISH COOKER 09/30/2024 11:12 AM VARNISH COOKER Dee Olvera NP LAB MICROBIOLOGY - GENERAL ORDE [facility] Final Result CHANDAN GARCIA [id number] Department [place] [address] [facility] * (ABNORMAL) Vaginitis panel Vaginal (09/29/2024 7:26 PM VARNISH COOKER) [facility] Jaz DNA probe Not Detected Not Detected Comment:Testing performed by : [facility], [facility], [place]., [address] Gardnerella DNA probe Detected(A) Not Detected CHANDAN GARCIA Comment:Testing performed by : [facility], [address] [place] [address]., [id number] Trichomonas DNA probe Not Detected Not Detected CHANDAN GARCIA Comment: Interpretive Data Testing performed by [facility] via Affirm VPIII Microbial Identification Test, a [...] last revised on 2020. Testing performed by: [facility], [address] [place] [address]., [address] Vaginal 09/29/2024 7:26 PM VARNISH COOKER 09/30/2024 12:48 PM VARNISH COOKER Dee Olvera NP LAB MICROBIOLOGY - GENERAL JONATHAN DUARTE Final Result CHANDAN GARCIA [id number] Department of Laboratories [place], [place] [id number] from Last 3 Months Insurance [facility] Advance Directives For more information, please contact: [phone] * Full Code (Latest Code Status on File) Date Activated Date Inactivated Comments 09/24/2020 7:08 AM 09/25/2020 6:38 PM * Full Code Date Activated Date Inactivated Comments 09/23/2020 7:46 PM 09/24/2020 7:08 AM Full CPR in c ase of cardiopulmonary arrest * Full Code Date Activated Date Inactivated Comments 05/31/2020 3:38 PM 06/02/2020 7:12 PM Care Teams Ammunition Supervisor Relationship Specialty Start Date End Date Leslie Brand PA [address] [place] [address] PCP - General Physician Elevator Constructor Helper 11/14/24 Remy Escalante NP Nurse Practitioner Emergency Medicine 04/06/20
--- OUTSIDE RECORDS SUMMARY | 2024-11-14 19:04 | XMS_ITS | Clinical Summary ---
Author Organization [facility] Address [facility] [place] [address] Care Team Providers Care Loop Cutter Name Role Phone Remy Escalante INK BLENDER Unavailable Leslie Brand Primary Care Provider [phone] Allergies Active Allergy Reactions Criticality Noted Date [...] Patient not taking.Reported on 11/14/2024 PNV with [id number]-[id number] 27 mg iron- 1 mg tabletIndicatio ns:Vitamin [...] gain and if concern will refer to feather mixer for consult. Fibromyalgia 05/24/2020 Overview (05/29/2020): Patient reports pain is controlled with gabapentin. No increased interventions during this . Supervision of high-risk , unspecified trimester 05/24/2020 Overview (09/21/2020): [x] Full M Care; [] Red Team [] Blue Team Referring Provider: Dr. Gege Eubanks at [place] [phone] [x] Dating Criteria: LMP 12/30/19 STACIE 10/05/20 [x] Labs: Lab Results Component Value Date ABORH A Positive 05/30/2020 IDCOOMB Negative 05/30/2020 [id number] Nonreactive 05/30/2020 LABRPR Nonreactive 05/30/2020 RUBELIGG Reactive [...] delivery: PVT [x] MOC: Desires BTL at [facility] Lucas Ramos [x] Method of feeding: [x] Records Management Director: discussed and resources provided, pt will call her insurance company today [x] PP Depression Discussed: Encounters Date Type Department Care Team Description 11/14/2024 3:00 PM CDT Office Visit [facility] Medical Group Convenient Care at [address] [phone] Katherin Holland NP Dysuria (Primary Dx); Vaginal discharge; History of pyelonephritis; Atrophic kidney; Left flank pain 10/01/2024 Orders Only [facility] at [address] [phone] Dee Olvera NP 09/29/2024 7:30 PM GEOSPATIAL INTELLIGENCE ANALYST Office Visit [facility] at [address] [phone] Dee Olvera NP Screening for STD (sexually transmitted disease) (Primary Dx); Vaginal odor; Vaginal discharge 09/29/2024 7:26 PM GEOSPATIAL INTELLIGENCE ANALYST - 09/29/2024 11:59 PM GEOSPATIAL INTELLIGENCE ANALYST Hospital Encounter [address] [address] Screening for STD (sexually transmitted disease); Vaginal [...] drink = 0.6 oz pur e alcohol) [place] Depression Scale Answer Date Recorded [place] Depression Scale Total 13 11/28/2020 The thought [...] David almaraz, Yoni Brar MD Complications:None Delivery Location:[facility] Main C ampus ([facility] 58LD) Last Filed Vital Signs Vital [...] cm (5' 6.5 ) 09/29/2024 7:24 PM GEOSPATIAL INTELLIGENCE ANALYST Body Mass Index 21.46 09/29/2024 7:24 PM GEOSPATIAL INTELLIGENCE ANALYST Plan of Treatment Health Maintenance Due Date [...] GONORRHOEAE/C. TRACHOMATIS AMPLIFICATION Routine 09/29/2024 7:26 PM GEOSPATIAL INTELLIGENCE ANALYST Screening for STD (sexually transmitted disease) Vaginal odor Vaginal discharge VAGINITIS PANEL Routine 09/29/2024 7:26 PM GEOSPATIAL INTELLIGENCE ANALYST Screening for STD (sexually transmitted disease) Vaginal odor Vaginal discharge from Last 3 Months Results * (ABNORMAL) POCT urinalysis dipstick (11/14/2024 3:23 PM CDT) Color, Urine, POC Dark Yellow Clarity, ur, POC Cloudy(A) Clear Glucose, ur, POC Negative Negative MG/DL Bilirubin, ur, POC Negative Negative, Small, Moderate, Large Ketones, ur, POC Negative Negative Specific [place], POC 1.020 1.003 - 1.030 Blood, ur, POC Hemolyzed, trace(A) Negative pH, ur, POC 6.5 5.0 - 8.0 Protein, ur, POC Negative Negative Urobilinogen, urine, POC 2.0(A) 0.2 - 1.0 mg/dL Nitrite, ur, POC Negative Negative Leukocytes, ur, POC Moderate(A) Negative Lot Number [id number] Urine 11/14/2024 3:23 PM CDT Katherin Holland NP POINT OF CARE TEST ORDERAB LES Final Result * N. gonorrhoeae/C. trachomatis Amplification Vaginal (09/29/2024 7:26 PM GEOSPATIAL INTELLIGENCE ANALYST) C. trachomatis Not Detected [facility] Comment:Testing performed by : [facility], [address] [place] [address]., [address] N. gonorrhoeae Not Detected CHANDAN GARCIA Comment: Interpretive Data This assay detects Chlamydia trachomatis and Neisseria gonorrhoeae by nucleic acid amplification testing (NAAT). This assay has been cleared by the [place] Food and Drug administration. The performance characteristics of this test have been verified by the [facility] Molecular Infectious Disease laboratory. The performance characteristics of this test have not been evaluated in individuals less than 14 years of age. Current Interpretive Data was last revised on 2023. Testing performed by: [facility], [address] [place] [address]., [address] Vaginal (None) 09/29/2024 7: 26 PM GEOSPATIAL INTELLIGENCE ANALYST 09/30/2024 11:12 AM GEOSPATIAL INTELLIGENCE ANALYST Dee Olvera NP LAB MICROBIOLOGY - GENERAL JONATHAN DUARTE Final Result CHANDAN GARCIA [id number] Department [place] [address] [facility] * (ABNORMAL) Vaginitis panel Vaginal (09/29/2024 7:26 PM GEOSPATIAL INTELLIGENCE ANALYST) Jaz DNA probe Not Detected Not Detected Comment:Testing performed by : [facility], [address] [place] [address]., [id number] Gardnerella DNA probe Detected(A) Not Detected CHANDAN GARCIA Comment:Testing performed by : [facility], [address] [place] [address]., [id number] Trichomonas DNA probe Not Detected Not Detected CHANDAN GARCIA Comment: Interpretive Data Testing performed by [facility] via Affirm VPIII Microbial Identification Test, a [...] last revised on 2020. Testing performed by: [facility], [facility], [place]., [address] Vaginal 09/29/2024 7:26 PM GEOSPATIAL INTELLIGENCE ANALYST 09/30/2024 12:48 PM GEOSPATIAL INTELLIGENCE ANALYST us Dee Olvera NP LAB MICROBIOLOGY - GENERAL JONATHAN DUARTE Final Result CHANDAN [id number] [place] [address] from Last 3 Months Insurance [facility] Advance Directives For more information, please contact: [phone] * Full Code (Latest Code Status on File) Date Activated Date Inactivated Comments 09/24/2020 7:08 AM 09/25/2020 6:38 PM * Full Code Date Activated Date Inactivated Comments 09/23/2020 7:46 PM 09/24/2020 7:08 AM Full CPR in c ase of cardiopulmonary arrest * Full Code Date Activated Date Inactivated Comments 05/31/2020 3:38 PM 06/02/2020 7:12 PM Care Teams Loop Cutter Relationship Specialty Start Date End Date Leslie Brand PA [address] [place] [address] PCP - General Physician Grinding Room Inspector 11/14/24 Remy Escalante NP Nurse Practitioner Emergency Medicine 04/06/20"
--- OUTSIDE RECORDS SUMMARY | 2024-11-14 19:05 | XMS_ITS | Continuity of Care Document ---
Author Name [facility] Organization [facility] Care Team Providers Care Director Of Agronomy Name Role Phone [facility] Unavailable Unavailable Problems Combined list of problems from Department of Defense and Veterans Affairs facilities. It does not include entries that were removed or entered in error. Problem Status Onset Date Problem Type Date of Resolution Comments Source Anxiety * (ICD-9-CM 300.00/300.09) Active Condition [facility] Anxiety disorder Active Condition [facility] Arthralgia * (ICD-9-CM 719.40) Active Condition [facility] C/O - cough Active Condition [facility] Cancer cervix - screening done Active Condition Oct 10, 2015 Entered By: CLAUDIA KELSEY Comment: NIL, HPV neg Sep 2015 [facility] Cervicalgia (SNOMED CT 81174162) Active Condition [facility] Chronic migraine Active Condition [facility] Constipation Active Condition [facility] Depression Active Condition [facility] Dysmenorrhea Active Condition [facility] Dysuria Active Condition Jun 20 Entered By: CLAUDIA KELSEY Comment: hx past pyelo, past stones, multi UTIs and r renal atrophy [facility] Epigastric pain Active Condition [facility] Exposure to potentially hazardous substance Active Condition [facility] Fibromyalgia Active Condition [facility] Fibromyalgia (SNOMED CT 58203581) Active Condition [facility] Insomnia, unspecified (ICD-9-CM 780.52) Active Condition [facility] Jaw pain Active Condition [facility] Major depressive disorder Active Condition [facility] Nicotine dependence (SNOMED CT 64772925) Active Condition [facility] Obstructive sleep apnea Active Condition Mar 07, 2016 Entered By: JOSE BARCLAY Comment: 01/2016 PSG at [facility], mild (AHI=11) [facility] Obstructive sleep apnea Active Condition [facility] Papular eruption Active Condition [facility] Systemic Lupus Erythematosus * (ICD-9-CM 710.0) Active Condition January 13 6 Entered By: CLAUDIA KELSEY Comment: please review rheumatology notes 2016 [facility] Tobacco use Active Condition [facility] Vertigo Active Condition [facility] Viral enteritis Active Condition [facility] Diagnosis: ICD-10-CM F33.1 Major depressive disorder, recurrent, moderate Active Diagnosis [facility] Diagnosis: ICD-10-CM Z63.0 Problems in relationship with spouse or partner Active Diagnosis [facility] Diagnosis: ICD-10-CM Z65.3 Problems related to other legal circumstances Active Diagnosis [facility] Diagnosis: ICD-10-CM M79.7 Fibromyalgia Active Diagnosis [facility] Diagnosis: ICD-10-CM M48.02 Spinal stenosis, cervical region Active Diagnosis [facility] Diagnosis: ICD-10-CM N10 Acute pyelonephritis Active Diagnosis [facility] Diagnosis: ICD-10-CM G43.901 Migraine, unsp, not intractable, with status migrainosus Active Diagnosis [facility] Diagnosis: ICD-10-CM R51.9 Headache, unspecified Active Diagnosis [facility] Diagnosis: ICD-10-CM G43.E09 Chronic migraine with aura, not ntrct, without stat migr Active Diagnosis [facility] Diagnosis: ICD-10-CM S93.492A Sprain of other ligament of left ankle, initial encounter Active Diagnosis [facility] Diagnosis: ICD-10-CM S93.402A Sprain of unspecified ligament of left ankle, init encntr Active Diagnosis [facility] Diagnosis: ICD-10-CM G43.119 Migraine with aura, intractable, without status migrainosus Active Diagnosis [facility] Diagnosis: ICD-10-CM R53.1 Weakness Active Diagnosis [facility] Diagnosis: ICD-10-CM M47.812 Spondylosis w/o myelopathy or radiculopathy, cervical region Active Diagnosis [facility] Diagnosis: ICD-10-CM M54.2 Cervicalgia Active Diagnosis [facility] Diagnosis: ICD-10-CM Z13.5 Encounter for screening for eye and ear disorders Active Diagnosis [facility] Diagnosis: ICD-10-CM G47.33 Obstructive sleep apnea (adult) (pediatric) Active Diagnosis [facility] Medications Combined list of outpatient medications from Department of Defense and [facility] Affairs facilities.Medications provided include 1) outpatient medications from the last 15 months, and 2) patient-reported medications. Medication Details Route Status Patient Instructions Prescription Expires Prescription Number Last Dispense Date Ordering Provider Order Date Order Qty Source FAMOTIDINE 20MG TAB TAKE ONE TABLET BY MOUTH TWICE A DAY FOR GASTROES OPHAGEAL REFLUX DISEASE ORAL 04/22/2024 [id number] ROBIN OGDEN 2023 10 [facility] GABAPENTIN 300MG CAP TAKE TWO CAPSULES BY MOUTH THREE TIMES A DAY FOR NERVE PAIN ORAL ACTIVE 04/07/2025 [id number] 5 MIKE VAZQUEZ AWN 2023 540 [facility] GABAPENTIN 300MG CAP TAKE TWO CAPSULES BY MOUTH THREE TIMES A DAY FOR NERVE PAIN ORAL DISCONT INUED BY PROVIDE R 01/28/2025 [id number] 4 EMMETT GUERRA 2023 540 [facility] GABAPENTIN 300MG CAP TAKE TWO CAPSULES BY MOUTH THREE TIMES A DAY FOR NERVE PAIN ORAL DISCONT INUED 01/03/2024 [id number] EMMETT GUERRA 2022 540 [facility] LIDOCAINE 5% PATCH APPLY 1 PATCH TO SKIN SITE ONCE A DAY APPLY PATCH AND PRESS FIRMLY FOR 10-15 SECONDS. KEEP ON FOR 12 HOURS THEN REMOVE PATCH FOR 12 HOURS. TRANSD ERMAL 12/02/2023 [id number] 4 EMMETT GUERRA 2022 30 [facility] MECLIZINE HCL 25MG TAB TAKE ONE TABLET BY MOUTH THREE TIMES A DAY NEEDED ORAL ACTIVE RADHA KELSEY 2019 [facility] NITROFURANT OIN MONOHYDRATE /MACROCRYST ALLINE 100MG CAP,SA TAKE ONE CAPSULE BY MOUTH TWICE A DAY AFTER MEALS FOR URINARY TRACT INFECTIO N TAKE WITH FOOD UNTIL GONE. ORAL 07/20/2024 [id number] 4 DIVYA MAN HN F 2023 20 [facility] NORTRIPTYLI NE HCL 10MG CAP TAKE TWO CAPSULES BY MOUTH AT BEDTIME HEADACHE ORAL ACTIVE 04/07/2025 [id number] MIKE VAZQUEZ 2023 180 [facility] NORTRIPTYLI NE HCL 10MG CAP TAKE ONE CAPSULE BY MOUTH AT BEDTIME FOR 14 DAYS, THEN TAKE TWO CAPSULES AT BEDTIME HEADACHE ORAL DISCONT INUED 04/07/2025 [id number] 4 MIKE VAZQUEZ 2023 180 [facility] PSYLLIUM PWDR,ORAL MIX 1 ROUNDED TEASPOON IN 8 OUNCES WATER/JU ICE AND DRINK BY MOUTH EVERY DAY NEEDED ORAL ACTIVE RADHA KELSEY 2018 [facility] SERTRALINE HCL 100MG TAB TAKE ONE TABLET BY MOUTH ONCE A DAY FOR MOOD ORAL ACTIVE 09/15/2025 [id number] 5 JAZ WOOTEN 2024 90 [facility] SERTRALINE HCL 100MG TAB TAKE ONE TABLET BY MOUTH ONCE A DAY FOR MOOD ORAL DISCONT INUED 07/29/2024 [id number] JAZ WOOTEN 2022 90 [facility] SERTRALINE HCL 100MG TAB TAKE ONE-HALF TABLET BY MOUTH EVERY DAY ORAL ACTIVE THOR ROSENBERG 2019 [facility] SUMATRIPTAN SUCCINATE 25MG TAB TAKE ONE TABLET BY MOUTH NEEDED FOR MIGRAINE HEADACHE TAKE AT ONSET OF HEADACHE . MAY REPEAT AFTER 2 HOURS. NOT TO EXCEED 2 TABLETS IN 24 HOURS. ORAL ACTIVE 07/09/2025 [id number] 5 EMMETT GUERRA 2023 9 [facility] SUMATRIPTAN SUCCINATE 25MG TAB TAKE ONE TABLET BY MOUTH NEEDED FOR MIGRAINE HEADACHE TAKE AT ONSET OF HEADACHE . MAY REPEAT AFTER 2 HOURS. NOT TO EXCEED 2 TABLETS IN 24 HOURS. ORAL DISCONT INUED 07/20/2024 [id number] DIVYA MAN F 2023 9 [facility] SUMATRIPTAN SUCCINATE 25MG TAB TAKE ONE TABLET BY MOUTH NEEDED FOR MIGRAINE HEADACHE TAKE AT ONSET OF HEADACHE . MAY REPEAT AFTER 2 HOURS. NOT TO EXCEED 2 TABLETS IN 24 HOURS. ORAL DISCONT INUED 04/07/2025 [id number] 4 MIKE VAZQUEZ AWNadine 2023 9 [facility] SUMATRIPTAN SUCCINATE 25MG TAB TAKE ONE TABLET BY MOUTH ONCE NEEDED FOR HEADACHE /MIGRAIN E . TAKE AT ONSET OF HEADACHE . MAY REPEAT ONCE AFTER 2 HOURS. DO NOT TAKE MORE THAN 2 TABLETS IN 24 HOURS. ORAL 05/30/2024 [id number] 4 TIMBO MONTENEGRO 2023 9 [facility] Allergies, Adverse Reactions, Alerts Combined list of allergies from Department of Defense and Veterans Affairs facilities. It does not include entries that were removed or entered in error. Substance Category Reaction Severity Reaction type Status Date Reported Comments Source BENADRYL Propensity to adverse reactions to drug (finding) Feeling agitated active 6 [facility] CLINDAMYCIN Propensity to adverse reactions to drug (finding) Eruption MILD active 2 [facility] COMPAZINE Propensity to adverse reactions to drug (finding) active 0 [facility] DIPHENHYDRAM INE Propensity to adverse reactions to drug (finding) active 0 [facility] LOZENGES Propensity to adverse reactions to drug (finding) Headache active 1 [facility] NICODERM TRANSDERMAL Propensity to adverse reactions to drug (finding) Anxiety active 1 [facility] NICORETTE 2MG GUM Propensity to adverse reactions to drug (finding) Burning sensation active 1 [facility] Results Combined list of recent chemistry, hematology [...] Jun 20, 2024 12:10 PM Reporting Lab: [place] [address] Performing Lab: [address] [address] [facility] URINALYS IS W/ CX REFLEX (STL-PB) BILIRUBIN. TOTAL [PRESENCE] IN URINE BY TEST STRIP Negative mg/dL 06/20 Specimen Type: URINE No comment entered. Ordering Provider: PAUL CORTES Report Released Date/Time: Jun 20, 2024 12:10 PM Reporting Lab: [address] [address] Performing Lab: [address] [address] [facility] URINALYS IS W/ CX REFLEX (STL-PB) PH OF URINE BY TEST STRIP 6.0 5.0 - 8.0 06/20 Specimen Type: URINE No comment entered. Ordering Provider: PAUL CORTES Report Released Date/Time: Jun 20, 2024 12:10 PM Reporting Lab: [address] [address] Performing Lab: [address] [address] [facility] URINALYS IS W/ CX REFLEX (STL-PB) LEUKOCYTES [#/AREA] IN URINE SEDIMENT BY MICROSCOPY HIGH POWER FIELD >182/[HP F] 0 - 5 06/20 H Specimen Type: URINE No comment entered. Ordering Provider: PAUL CORTES Report Released Date/Time: Jun 20, 2024 12:10 PM Reporting Lab: [address] [address] Performing Lab: [address] [address] [facility] URINALYS IS W/ CX REFLEX (STL-PB) ERYTHROCYT ES [#/VOLUME] IN URINE SEDIMENT BY MICROSCOPY HIGH POWER FIELD 37 /[HPF] 0 - 5 06/20 H Specimen Type: URINE No comment entered. Ordering Provider: PAUL CORTES Report Released Date/Time: Jun 20, 2024 12:10 PM Reporting Lab: [address] [address] Performing Lab: [address] [address] [facility] URINALYS IS W/ CX REFLEX (STL-PB) APPEARANCE OF URINE Ex.Turbi d 06/20 Specimen Type: URINE No comment entered. Ordering Provider: PAUL CORTES Report Released Date/Time: Jun 20, 2024 12:10 PM Reporting Lab: [address] [address] Performing Lab: [address] [address] [facility] URINALYS IS W/ CX REFLEX (STL-PB) NITRITE [PRESENCE] IN URINE BY TEST STRIP 2+mg/dL 06/20 H Specimen Type: URINE No comment entered. Ordering Provider: PAUL CORTES Report Released Date/Time: Jun 20, 2024 12:10 PM Reporting Lab: [address] [address] Performing Lab: [address] [address] [facility] URINALYS IS W/ CX REFLEX (STL-PB) LEUKOCYTE CLUMPS [#/VOLUME] IN URINE BY AUTOMATED COUNT OCC/[HPF ] 06/20 Specimen Type: URINE No comment entered. Ordering Provider: PAUL CORTES Report Released Date/Time: Jun 20, 2024 12:10 PM Reporting Lab: [address] [address] Performing Lab: [address] [address] [facility] URINALYS IS W/ CX REFLEX (STL-PB) BACTERIA [PRESENCE] IN URINE SEDIMENT BY LIGHT MICROSCOPY OCC/[HPF ] 06/20 Specimen Type: URINE No comment entered. Ordering Provider: PAUL CORTES Report Released Date/Time: Jun 20, 2024 12:10 PM Reporting Lab: [address] [address] Performing Lab: [address] [address] [facility] URINALYS IS W/ CX REFLEX (STL-PB) EPITHELIAL CELLS [#/AREA] IN URINE SEDIMENT BY MICROSCOPY LOW POWER FIELD 3 /[HPF] 0 - 5 06/20 Specimen Type: URINE No comment entered. Ordering Provider: PAUL CORTES Report Released Date/Time: Jun 20, 2024 12:10 PM Reporting Lab: [address] [address] Performing Lab: [address] [address] [facility] URINALYS IS W/ CX REFLEX (STL-PB) GLUCOSE [MASS/VOLU ME] IN URINE BY TEST STRIP Normalmg /dL 06/20 Specimen Type: URINE No comment entered. Ordering Provider: PAUL CORTES Report Released Date/Time: Jun 20, 2024 12:10 PM Reporting Lab: [address] [address] Performing Lab: [address] [address] [facility] URINALYS IS W/ CX REFLEX (STL-PB) PROTEIN [MASS/VOLU ME] IN URINE BY TEST STRIP 70 mg/dL 06/20 H Specimen Type: URINE No comment entered. Ordering Provider: PAUL CORTES Report Released Date/Time: Jun 20, 2024 12:10 PM Reporting Lab: [place] [phone] Performing Lab: [address] [address] [facility] URINALYS IS W/ CX REFLEX (STL-PB) URN.UROBIL INOGEN Normalmg /dL 06/20 Specimen Type: URINE No comment entered. Ordering Provider: PAUL CORTES Report Released Date/Time: Jun 20, 2024 12:10 PM Reporting Lab: [address] [address] Performing Lab: [address] [address] [facility] URINALYS IS W/ CX REFLEX (STL-PB) HEMOGLOBIN [MASS/VOLU ME] IN URINE BY TEST STRIP 2+mg/dL 06/20 H Specimen Type: URINE No comment entered. Ordering Provider: PAUL CORTES Report Released Date/Time: Jun 20, 2024 12:10 PM Reporting Lab: [address] [address] Performing Lab: [address] [address] [facility] URINALYS IS W/ CX REFLEX (STL-PB) KETONES [MASS/VOLU ME] IN URINE BY TEST STRIP Negative mg/dL 06/20 Specimen Type: URINE No comment entered. Ordering Provider: PAUL CORTES Report Released Date/Time: Jun 20, 2024 12:10 PM Reporting Lab: [address] [place] [address] Performing Lab: [address] [address] [facility] URINALYS IS W/ CX REFLEX (STL-PB) URN.LEUK.E ST. 500 mg/dL 06/20 H Specimen Type: URINE No comment entered. Ordering Provider: PAUL CORTES Report Released Date/Time: Jun 20, 2024 12:10 PM Reporting Lab: [address] [address] Performing Lab: [address] [phone] [address] URINALYS IS W/ CX REFLEX (STL-PB) SPECIFIC GRAVITY OF URINE 1.020 06/20 Specimen Type: URINE No comment entered. Ordering Provider: PAUL CORTES Report Released Date/Time: Jun 20, 2024 12:10 PM Reporting Lab: [address] [address] Performing Lab: [address] [phone] [place] [address] URINALYS IS W/ CX REFLEX (STL-PB) *URINE FOR REFLEX CULTURE CX ORDERED AND SENT TO [facility] 06/20 Specimen Type: URINE No comment entered. Ordering Provider: PAUL CORTES Report Released Date/Time: Jun 20, 2024 12:10 PM Reporting Lab: [address] [address] Performing Lab: [address] [phone] [address] COMPREHE NSIVE METABOLI C PANEL CREATININE [MASS/VOLU ME] IN SERUM OR PLASMA 0.90 mg/dL 0.5 - 1.2 04/30 Specimen Type: PLASMA No comment entered. Ordering Provider: ME KEHINDE MONTENEGRO Report Released Date/Time: Apr 30, 2024 04:43 PM Reporting Lab: [address] [address] Performing Lab: [address] [address] [facility] COMPREHE NSIVE METABOLI C PANEL UREA NITROGEN [MASS/VOLU ME] IN SERUM OR PLASMA 18 mg/dL 6 - 20 04/30 Specimen Type: PLASMA No comment entered. Ordering Provider: ME KEHINDE MONTENEGRO Report Released Date/Time: Apr 30, 2024 04:43 PM Reporting Lab: [address] [address] Performing Lab: [address] [address] [facility] COMPREHE NSIVE METABOLI C PANEL GLUCOSE [MASS/VOLU ME] IN SERUM OR PLASMA 101 mg/dL 70 - 105 04/30 Specimen Type: PLASMA No comment entered. Ordering Provider: ME KEHINDE MONTENEGRO Report Released Date/Time: Apr 30, 2024 04:43 PM Reporting Lab: [address] [address] Performing Lab: [address] [address] [facility] COMPREHE NSIVE METABOLI C PANEL SODIUM [MOLES/VOL UME] IN SERUM OR PLASMA 135 meq/L 135 - 147 04/30 Specimen Type: PLASMA No comment entered. Ordering Provider: ME KEHINDE MONTENEGRO Report Released Date/Time: Apr 30, 2024 04:43 PM Reporting Lab: [address] [address] Performing Lab: [address] [address] [facility] COMPREHE NSIVE METABOLI C PANEL POTASSIUM [MOLES/VOL UME] IN SERUM OR PLASMA 3.6 meq/L 3.5 - 5.3 04/30 Specimen Type: PLASMA No comment entered. Ordering Provider: ME KEHINDE MONTENEGRO Report Released Date/Time: Apr 30, 2024 04:43 PM Reporting Lab: [address] [address] Performing Lab: [address] [address] [facility] COMPREHE NSIVE METABOLI C PANEL CHLORIDE [MOLES/VOL UME] IN SERUM OR PLASMA 106 meq/L 96 - 108 04/30 Specimen Type: PLASMA No comment entered. Ordering Provider: ME KEHINDE MONTENEGRO Report Released Date/Time: Apr 30, 2024 04:43 PM Reporting Lab: [address] [address] Performing Lab: [address] [phone] COMPREHE NSIVE METABOLI C PANEL CARBON DIOXIDE, TOTAL [MOLES/VOL UME] IN SERUM OR PLASMA 21 meq/L 22 - 29 04/30 L Specimen Type: PLASMA No comment entered. Ordering Provider: ME KEHINDE MONTENEGRO Report Released Date/Time: Apr 30, 2024 04:43 PM Reporting Lab: [address] [address] Performing Lab: [address] [phone] [address] COMPREHE NSIVE METABOLI C PANEL CALCIUM [MASS/VOLU ME] IN SERUM OR PLASMA 9.4 mg/dL 8.4 - 10.2 04/30 Specimen Type: PLASMA No comment entered. Ordering Provider: ME KEHINDE MONTENEGRO Report Released Date/Time: Apr 30, 2024 04:43 PM Reporting Lab: [address] [address] Performing Lab: [address] [phone] [address] COMPREHE NSIVE METABOLI C PANEL PROTEIN [MASS/VOLU ME] IN SERUM OR PLASMA 7.3 g/dL 04/30 Specimen Type: PLASMA No comment entered. Ordering Provider: ME KEHINDE MONTENEGRO Report Released Date/Time: Apr 30, 2024 04:43 PM Reporting Lab: [address] [address] Performing Lab: [address] [address] [facility] COMPREHE NSIVE METABOLI C PANEL ALBUMIN [MASS/VOLU ME] IN SERUM OR PLASMA 4.0 g/dL 3.5 - 5.2 04/30 Specimen Type: PLASMA No comment entered. Ordering Provider: ME KEHINDE MONTENEGRO Report Released Date/Time: Apr 30, 2024 04:43 PM Reporting Lab: [address] [phone] Performing Lab: [address] [address] [facility] COMPREHE NSIVE METABOLI C PANEL BILIRUBIN. TOTAL [MASS/VOLU ME] IN SERUM OR PLASMA 0.5 mg/dL 0.1 - 1 04/30 Specimen Type: PLASMA No comment entered. Ordering Provider: ME KEHINDE MONTENEGRO Report Released Date/Time: Apr 30, 2024 04:43 PM Reporting Lab: [address] [address] Performing Lab: [address] [address] [facility] COMPREHE NSIVE METABOLI C PANEL ALKALINE PHOSPHATAS E [ENZYMATIC ACTIVITY/V OLUME] IN SERUM OR PLASMA 60 U/L 45 - 129 04/30 Specimen Type: PLASMA No comment entered. Ordering Provider: ME KEHINDE MONTENEGRO Report Released Date/Time: Apr 30, 2024 04:43 PM Reporting Lab: [address] [address] Performing Lab: [address] [address] [facility] COMPREHE NSIVE METABOLI C PANEL ASPARTATE AMINOTRANS FERASE [ENZYMATIC ACTIVITY/V OLUME] IN SERUM OR PLASMA 14 U/L 0 - 37 04/30 Specimen Type: PLASMA No comment entered. Ordering Provider: ME KEHINDE MONTENEGRO Report Released Date/Time: Apr 30, 2024 04:43 PM Reporting Lab: [address] [address] Performing Lab: [address] [address] [facility] COMPREHE NSIVE METABOLI C PANEL ALANINE AMINOTRANS FERASE [ENZYMATIC ACTIVITY/V OLUME] IN SERUM OR PLASMA BY WITH P-5'-P 11 U/L 0 - 39 04/30 Specimen Type: PLASMA No comment entered. Ordering Provider: ME KEHINDE MONTENEGRO Report Released Date/Time: Apr 30, 2024 04:43 PM Reporting Lab: [address] [address] Performing Lab: [address] [address] [facility] COMPREHE NSIVE METABOLI C PANEL ANION GAP IN SERUM OR PLASMA 8 meq/L 4 - 16 04/30 Specimen Type: PLASMA No comment entered. Ordering Provider: ME KEHINDE MONTENEGRO Report Released Date/Time: Apr 30, 2024 04:43 PM Reporting Lab: [address] [address] Performing Lab: [address] [phone] [facility] COMPREHE NSIVE METABOLI C PANEL GLOMERULAR FILTRATION RATE/1.73 SQ M.PREDICTE D [VOLUME RATE/AREA] IN SERUM, PLASMA OR BLOOD BY CREATININE -BASED FORMULA (CKD-EPI 2020) 82 04/30 Specimen Type: PLASMA No comment entered. Ordering Provider: ME KEHINDE MONTENEGRO Report Released Date/Time: Apr 30, 2024 04:43 PM Reporting Lab: [address] [address] Performing Lab: [address] [address] [facility] COVID-19 SCREENIN G PANEL ([employer] ) SARS-COV-2 (COVID-19) RNA [PRESENCE] IN RESPIRATOR [...] Apr 30, 2024 04:43 PM Reporting Lab: [address] [address] Performing Lab: [address] [address] [facility] DIFF, AUTOMATE D 5-PART (& CBC) LEUKOCYTES [#/VOLUME] IN BLOOD BY AUTOMATED COUNT 13.42 10*3/uL 4.3 - 10.0 04/30 H Specimen Type: BLOOD No comment entered. Ordering Provider: ME KEHINDE MONTENEGRO Report Released Date/Time: Apr 30, 2024 04:43 PM Reporting Lab: [address] [address] Performing Lab: [phone] [place] [address] DIFF, AUTOMATE D 5-PART (& CBC) ERYTHROCYT ES [#/VOLUME] IN BLOOD BY AUTOMATED COUNT 4.91 10*6/uL 3.8 - 5.0 04/30 Specimen Type: BLOOD No comment entered. Ordering Provider: ME KEHINDE MONTENEGRO Report Released Date/Time: Apr 30, 2024 04:43 PM Reporting Lab: [address] [address] Performing Lab: [address] [phone] [address] DIFF, AUTOMATE D 5-PART (& CBC) HEMOGLOBIN [MASS/VOLU ME] IN BLOOD 15.6 g/dL 11.5 - 15.5 04/30 H Specimen Type: BLOOD No comment entered. Ordering Provider: ME KEHINDE MONTENEGRO Report Released Date/Time: Apr 30, 2024 04:43 PM Reporting Lab: [address] [address] Performing Lab: [address] [phone] [address] DIFF, AUTOMATE D 5-PART (& CBC) HEMATOCRIT [VOLUME FRACTION] OF BLOOD BY AUTOMATED COUNT 44.7 36 - 45 04/30 Specimen Type: BLOOD No comment entered. Ordering Provider: ME KEHINDE MONTENEGRO Report Released Date/Time: Apr 30, 2024 04:43 PM Reporting Lab: [address] [address] Performing Lab: [address] [address] [facility] DIFF, AUTOMATE D 5-PART (& CBC) MCV [ENTITIC VOLUME] BY AUTOMATED COUNT 91.0 fL 81 - 98 04/30 Specimen Type: BLOOD No comment entered. Ordering Provider: ME KEHINDE MONTENEGRO Report Released Date/Time: Apr 30, 2024 04:43 PM Reporting Lab: [address] [id number] Performing Lab: [address] [id number] [facility] DIFF, AUTOMATE D 5-PART (& CBC) MCH [ENTITIC MASS] BY AUTOMATED COUNT 31.8 pg 27.3 - 33.6 04/30 Specimen Type: BLOOD No comment entered. Ordering Provider: ME KEHINDE MONTENEGRO Report Released Date/Time: Apr 30, 2024 04:43 PM Reporting Lab: [address] [phone] Performing Lab: [address] [address] [facility] DIFF, AUTOMATE D 5-PART (& CBC) MCHC [MASS/VOLU ME] BY AUTOMATED COUNT 34.9 g/dL 32.3 - 35.7 04/30 Specimen Type: BLOOD No comment entered. Ordering Provider: ME KEHINDE MONTENEGRO Report Released Date/Time: Apr 30, 2024 04:43 PM Reporting Lab: [address] [address] Performing Lab: [address] [address] [facility] DIFF, AUTOMATE D 5-PART (& CBC) PLATELETS [#/VOLUME] IN BLOOD BY AUTOMATED COUNT 200 10*3/uL 150 - 400 04/30 Specimen Type: BLOOD No comment entered. Ordering Provider: ME KEHINDE MONTENEGRO Report Released Date/Time: Apr 30, 2024 04:43 PM Reporting Lab: [address] [address] Performing Lab: [address] [address] [facility] DIFF, AUTOMATE D 5-PART (& CBC) PLATELET MEAN VOLUME [ENTITIC VOLUME] IN BLOOD BY AUTOMATED COUNT 11.1 fL 7.4 - 10.4 04/30 H Specimen Type: BLOOD No comment entered. Ordering Provider: ME KEHINDE MONTENEGRO Report Released Date/Time: Apr 30, 2024 04:43 PM Reporting Lab: [address] [address] Performing Lab: [address] [address] [facility] DIFF, AUTOMATE D 5-PART (& CBC) ERYTHROCYT E DISTRIBUTI ON WIDTH [RATIO] BY AUTOMATED COUNT 12.5 11.5 - 14.5 04/30 Specimen Type: BLOOD No comment entered. Ordering Provider: ME KEHINDE MONTENEGRO Report Released Date/Time: Apr 30, 2024 04:43 PM Reporting Lab: [address] [address] Performing Lab: [address] [address] [facility] DIFF, AUTOMATE D 5-PART (& CBC) MONOCYTES/ 100 LEUKOCYTES IN BLOOD BY AUTOMATED COUNT 5.8 0 - 8 04/30 Specimen Type: BLOOD No comment entered. Ordering Provider: ME KEHINDE MONTENEGRO Report Released Date/Time: Apr 30, 2024 04:43 PM Reporting Lab: [address] [address] Performing Lab: [address] [address] [facility] DIFF, AUTOMATE D 5-PART (& CBC) LYMPHOCYTE S [#/VOLUME] IN BLOOD BY AUTOMATED COUNT 2.44 10*3/uL 0.9 - 5.0 04/30 Specimen Type: BLOOD No comment entered. Ordering Provider: ME KEHINDE MONTENEGRO Report Released Date/Time: Apr 30, 2024 04:43 PM Reporting Lab: [address] [address] Performing Lab: [address] [address] [facility] DIFF, AUTOMATE D 5-PART (& CBC) LYMPHOCYTE S/100 LEUKOCYTES IN BLOOD BY AUTOMATED COUNT 18.2 20 - 50 04/30 L Specimen Type: BLOOD No comment entered. Ordering Provider: ME KEHINDE MONTENEGRO Report Released Date/Time: Apr 30, 2024 04:43 PM Reporting Lab: [address] [address] Performing Lab: [address] [address] [facility] DIFF, AUTOMATE D 5-PART (& CBC) MONOCYTES [#/VOLUME] IN BLOOD BY AUTOMATED COUNT 0.78 10*3/uL 0.0 - 0.8 04/30 Specimen Type: BLOOD No comment entered. Ordering Provider: ME KEHINDE MONTENEGRO Report Released Date/Time: Apr 30, 2024 04:43 PM Reporting Lab: [address] [address] Performing Lab: [phone] [place] [address] DIFF, AUTOMATE D 5-PART (& CBC) EOSINOPHIL S/100 LEUKOCYTES IN BLOOD BY AUTOMATED COUNT 5.7 0 - 5 04/30 H Specimen Type: BLOOD No comment entered. Ordering Provider: ME KEHINDE MONTENEGRO Report Released Date/Time: Apr 30, 2024 04:43 PM Reporting Lab: [address] [address] Performing Lab: [phone] [place] [address] DIFF, AUTOMATE D 5-PART (& CBC) BASOPHILS/ 100 LEUKOCYTES IN BLOOD BY AUTOMATED COUNT 0.7 0 - 2 04/30 Specimen Type: BLOOD No comment entered. Ordering Provider: ME KEHINDE MONTENEGRO Report Released Date/Time: Apr 30, 2024 04:43 PM Reporting Lab: [address] [address] Performing Lab: [address] [phone] [place] [address] DIFF, AUTOMATE D 5-PART (& CBC) NEUTROPHIL S/100 LEUKOCYTES IN BLOOD BY AUTOMATED COUNT 69.2 40 - 74 04/30 Specimen Type: BLOOD No comment entered. Ordering Provider: ME KEHINDE MONTENEGRO Report Released Date/Time: Apr 30, 2024 04:43 PM Reporting Lab: [address] [address] Performing Lab: [address] [phone] [place] [address] DIFF, AUTOMATE D 5-PART (& CBC) EOSINOPHIL S [#/VOLUME] IN BLOOD BY AUTOMATED COUNT 0.76 10*3/uL 0.0 - 0.5 04/30 H Specimen Type: BLOOD No comment entered. Ordering Provider: ME KEHINDE MONTENEGRO Report Released Date/Time: Apr 30, 2024 04:43 PM Reporting Lab: [address] [address] Performing Lab: [address] [address] [facility] DIFF, AUTOMATE D 5-PART (& CBC) BASOPHILS [#/VOLUME] IN BLOOD BY AUTOMATED COUNT 0.10 10*3/uL 0.0 - 0.2 04/30 Specimen Type: BLOOD No comment entered. Ordering Provider: ME KEHINDE MONTENEGRO Report Released Date/Time: Apr 30, 2024 04:43 PM Reporting Lab: [address] [address] Performing Lab: [address] [address] [facility] DIFF, AUTOMATE D 5-PART (& CBC) NEUTROPHIL S [#/VOLUME] IN BLOOD BY AUTOMATED COUNT 9.29 10*3/uL 1.7 - 7.4 04/30 H Specimen Type: BLOOD No comment entered. Ordering Provider: ME KEHINDE MONTENEGRO Report Released Date/Time: Apr 30, 2024 04:43 PM Reporting Lab: [address] [address] Performing Lab: [address] [phone] DIFF, AUTOMATE D 5-PART (& CBC) NUCLEATED ERYTHROCYT ES/100 LEUKOCYTES [RATIO] IN BLOOD BY AUTOMATED COUNT 0.0 0 - 0 04/30 Specimen Type: BLOOD No comment entered. Ordering Provider: ME KEHINDE MONTENEGRO Report Released Date/Time: Apr 30, 2024 04:43 PM Reporting Lab: [address] [address] Performing Lab: [address] [address] [facility] DIFF, AUTOMATE D 5-PART (& CBC) ERYTHROCYT E DISTRIBUTI ON WIDTH [ENTITIC VOLUME] BY AUTOMATED COUNT 41.5 fL 36.5 - 45.9 04/30 Specimen Type: BLOOD No comment entered. Ordering Provider: ME KEHINDE MONTENEGRO Report Released Date/Time: Apr 30, 2024 04:43 PM Reporting Lab: [address] [address] Performing Lab: [address] [address] [facility] DIFF, AUTOMATE D 5-PART (& CBC) IMMATURE GRANULOCYT ES/100 LEUKOCYTES IN BLOOD BY AUTOMATED COUNT 0.4 0 - 2 04/30 Specimen Type: BLOOD No comment entered. Ordering Provider: ME KEHINDE MONTENEGRO Report Released Date/Time: Apr 30, 2024 04:43 PM Reporting Lab: [address] [address] Performing Lab: [address] [address] [facility] DIFF, AUTOMATE D 5-PART (& CBC) IMMATURE GRANULOCYT ES [#/VOLUME] IN BLOOD BY AUTOMATED COUNT 0.05 10*3/uL 0.0 - 0.2 04/30 H Specimen Type: BLOOD No comment entered. Ordering Provider: ME KEHINDE MONTENEGRO Report Released Date/Time: Apr 30, 2024 04:43 PM Reporting Lab: [address] [address] Performing Lab: [address] [phone] [facility] QUAL, STAT URINE CHORIOGONA DOTROPIN.B ETA SUBUNIT ( TEST) [PRESENCE] IN URINE neg 04/30 Specimen Type: URINE No comment entered. Ordering Provider: ME KEHINDE MONTENEGRO Report Released Date/Time: Apr 30, 2024 04:43 PM Reporting Lab: [address] [address] Performing Lab: [address] [address] [facility] CBC LEUKOCYTES [#/VOLUME] IN BLOOD BY AUTOMATED COUNT 11.1 10*3/uL 3.6 - 11.2 04/17 Specimen Type: BLOOD No comment entered. Ordering Provider: GEORGE REICH Report Released Date/Time: Apr 17, 2024 04:07 PM Reporting Lab: [facility] [address] [facility] [address] Performing Lab: [facility] [address] [facility] [address] [facility] CBC ERYTHROCYT ES [#/VOLUME] IN BLOOD BY AUTOMATED COUNT 4.60 10*6/uL 3.60 - 5.00 04/17 Specimen Type: BLOOD No comment entered. Ordering Provider: GEORGE REICH Report Released Date/Time: Apr 17, 2024 04:07 PM Reporting Lab: [address] [address] Performing Lab: [address] [address] [facility] CBC HEMOGLOBIN [MASS/VOLU ME] IN BLOOD 14.6 g/dL 11.0 - 14.9 04/17 Specimen Type: BLOOD No comment entered. Ordering Provider: GEORGE REICH Report Released Date/Time: Apr 17, 2024 04:07 PM Reporting Lab: [address] [address] Performing Lab: [address] [address] [facility] CBC HEMATOCRIT [VOLUME FRACTION] OF BLOOD 43.5 32.6 - 43.4 04/17 H Specimen Type: BLOOD No comment entered. Ordering Provider: GEORGE REICH Report Released Date/Time: Apr 17, 2024 04:07 PM Reporting Lab: [address] [address] Performing Lab: [address] [address] [facility] CBC MCV [ENTITIC VOLUME] BY AUTOMATED COUNT 94.6 fL 80.0 - 100.0 04/17 Specimen Type: BLOOD No comment entered. Ordering Provider: GEORGE REICH Report Released Date/Time: Apr 17, 2024 04:07 PM Reporting Lab: [address] [address] Performing Lab: [address] [address] [facility] CBC MCH [ENTITIC MASS] BY AUTOMATED COUNT 31.7 pg 27.0 - 34.0 04/17 Specimen Type: BLOOD No comment entered. Ordering Provider: GEORGE REICH Report Released Date/Time: Apr 17, 2024 04:07 PM Reporting Lab: [address] [address] Performing Lab: [phone] [place] [address] CBC MCHC [MASS/VOLU ME] BY AUTOMATED COUNT 33.6 g/dL 33.0 - 36.0 04/17 Specimen Type: BLOOD No comment entered. Ordering Provider: GEORGE REICH Report Released Date/Time: Apr 17, 2024 04:07 PM Reporting Lab: [address] [address] Performing Lab: [address] [address] [facility] CBC PLATELETS [#/VOLUME] IN BLOOD BY AUTOMATED COUNT 222 10*3/uL 150 - 400 04/17 Specimen Type: BLOOD No comment entered. Ordering Provider: GEORGE REICH Report Released Date/Time: Apr 17, 2024 04:07 PM Reporting Lab: [address] [address] Performing Lab: [address] [address] [facility] CBC PLATELET MEAN VOLUME [ENTITIC VOLUME] IN BLOOD BY AUTOMATED COUNT 12.5 fL 7.5 - 11.2 04/17 H Specimen Type: BLOOD No comment entered. Ordering Provider: GEORGE REICH Report Released Date/Time: Apr 17, 2024 04:07 PM Reporting Lab: [address] [address] Performing Lab: [address] [address] [facility] CBC ERYTHROCYT E DISTRIBUTI ON WIDTH [RATIO] BY AUTOMATED COUNT 13.0 11.8 - 15.1 04/17 Specimen Type: BLOOD No comment entered. Ordering Provider: GEORGE REICH Report Released Date/Time: Apr 17, 2024 04:07 PM Reporting Lab: [facility] [address] [place] [address] Performing Lab: [facility] [address] [place] [address] [facility] CBC LYMPHOCYTE S/100 LEUKOCYTES IN BLOOD BY AUTOMATED COUNT 28 04/17 Specimen Type: BLOOD No comment entered. Ordering Provider: GEORGE REICH Report Released Date/Time: Apr 17, 2024 04:07 PM Reporting Lab: [facility] [address] [place] [address] Performing Lab: [facility] [address] [place] [address] [phone] [place] [address] CBC MONOCYTES/ 100 LEUKOCYTES IN BLOOD BY AUTOMATED COUNT 8 04/17 Specimen Type: BLOOD No comment entered. Ordering Provider: GEORGE REICH Report Released Date/Time: Apr 17, 2024 04:07 PM Reporting Lab: [facility] [address] [place] [address] Performing Lab: [facility] [address] [place] [address] [facility] CBC NEUTROPHIL S/100 LEUKOCYTES IN BLOOD BY AUTOMATED COUNT 56 04/17 Specimen Type: BLOOD No comment entered. Ordering Provider: GEORGE REICH Report Released Date/Time: Apr 17, 2024 04:07 PM Reporting Lab: [facility] [address] [place] [address] Performing Lab: [facility] [address] [place] [address] [facility] CBC EOSINOPHIL S/100 LEUKOCYTES IN BLOOD BY AUTOMATED COUNT 8 04/17 Specimen Type: BLOOD No comment entered. Ordering Provider: GEORGE REICH Report Released Date/Time: Apr 17, 2024 04:07 PM Reporting Lab: [facility] [address] [place] [phone] Performing Lab: [facility] [address] [place] [phone] [facility] CBC BASOPHILS/ 100 LEUKOCYTES IN BLOOD BY AUTOMATED COUNT 1 04/17 Specimen Type: BLOOD No comment entered. Ordering Provider: GEORGE REICH Report Released Date/Time: Apr 17, 2024 04:07 PM Reporting Lab: [place] [address] Performing Lab: [address] [phone] [place] [address] CBC LYMPHOCYTE S [#/VOLUME] IN BLOOD BY AUTOMATED COUNT 3.07 10*3/uL 0.77 - 4.50 04/17 Specimen Type: BLOOD No comment entered. Ordering Provider: GEORGE REICH Report Released Date/Time: Apr 17, 2024 04:07 PM Reporting Lab: [facility] [address] [place] [address] Performing Lab: [address] [address] [facility] CBC MONOCYTES [#/VOLUME] IN BLOOD BY AUTOMATED COUNT 0.85 10*3/uL 0.19 - 0.80 04/17 H Specimen Type: BLOOD No comment entered. Ordering Provider: GEORGE REICH Report Released Date/Time: Apr 17, 2024 04:07 PM Reporting Lab: [facility] [address] [place] [phone] Performing Lab: [address] [address] [facility] CBC NEUTROPHIL S [#/VOLUME] IN BLOOD BY AUTOMATED COUNT 6.22 10*3/uL 2.10 - 8.00 04/17 Specimen Type: BLOOD No comment entered. Ordering Provider: GEORGE REICH Report Released Date/Time: Apr 17, 2024 04:07 PM Reporting Lab: [facility] [address] [place] [address] Performing Lab: [facility] [address] [facility] [address] [facility] CBC EOSINOPHIL S [#/VOLUME] IN BLOOD BY AUTOMATED COUNT 0.86 10*3/uL 0.00 - 0.60 04/17 H Specimen Type: BLOOD No comment entered. Ordering Provider: GEORGE REICH Report Released Date/Time: Apr 17, 2024 04:07 PM Reporting Lab: [address] [address] Performing Lab: [address] [phone] [place] [address] CBC BASOPHILS [#/VOLUME] IN BLOOD BY AUTOMATED COUNT 0.10 10*3/uL 0.00 - 0.20 04/17 Specimen Type: BLOOD No comment entered. Ordering Provider: GEORGE REICH Report Released Date/Time: Apr 17, 2024 04:07 PM Reporting Lab: [address] [address] Performing Lab: [address] [phone] [place] [address] COMPREHE NSIVE METABOLI C PANEL CREATININE [MASS/VOLU ME] IN SERUM OR PLASMA 1.03 mg/dL 0.6 - 1.1 04/17 Specimen Type: PLASMA Comment: No hemolysis noted. Ordering Provider: GEORGE REICH Report Released Date/Time: Apr 17, 2024 04:07 PM Reporting Lab: [address] [address] Performing Lab: [address] [address] [facility] COMPREHE NSIVE METABOLI C PANEL UREA NITROGEN [MASS/VOLU ME] IN SERUM OR PLASMA 18.3 mg/dL 9.0 - 25.0 04/17 Specimen Type: PLASMA Comment: No hemolysis noted. Ordering Provider: GEORGE REICH Report Released Date/Time: Apr 17, 2024 04:07 PM Reporting Lab: [facility] [address] [facility] [address] Performing Lab: [facility] [address] [facility] [address] [facility] COMPREHE NSIVE METABOLI C PANEL GLUCOSE [MASS/VOLU ME] IN SERUM OR PLASMA 77 mg/dL 72 - 99 04/17 Specimen Type: PLASMA Comment: No hemolysis noted. Ordering Provider: GEORGE REICH Report Released Date/Time: Apr 17, 2024 04:07 PM Reporting Lab: [facility] [address] [facility] [address] Performing Lab: [facility] [address] [facility] [address] [facility] COMPREHE NSIVE METABOLI C PANEL SODIUM [MOLES/VOL UME] IN SERUM OR PLASMA 140 meq/L 136 - 145 04/17 Specimen Type: PLASMA Comment: No hemolysis noted. Ordering Provider: GEORGE REICH Report Released Date/Time: Apr 17, 2024 04:07 PM Reporting Lab: [facility] [address] [facility] [address] Performing Lab: [facility] [address] [facility] [address] [facility] COMPREHE NSIVE METABOLI C PANEL POTASSIUM [MOLES/VOL UME] IN SERUM OR PLASMA 3.4 meq/L 3.5 - 5 04/17 L Specimen Type: PLASMA Comment: No hemolysis noted. Ordering Provider: GEORGE REICH Report Released Date/Time: Apr 17, 2024 04:07 PM Reporting Lab: [facility] [address] [facility] [address] Performing Lab: [facility] [address] [facility] [address] [facility] COMPREHE NSIVE METABOLI C PANEL CHLORIDE [MOLES/VOL UME] IN SERUM OR PLASMA 107 meq/L 98 - 107 04/17 Specimen Type: PLASMA Comment: No hemolysis noted. Ordering Provider: GEORGE REICH Report Released Date/Time: Apr 17, 2024 04:07 PM Reporting Lab: [facility] [address] [facility] [address] Performing Lab: [facility] [address] [facility] [address] [facility] COMPREHE NSIVE METABOLI C PANEL CARBON DIOXIDE, TOTAL [MOLES/VOL UME] IN SERUM OR PLASMA 23 meq/L 22 - 31 04/17 Specimen Type: PLASMA Comment: No hemolysis noted. Ordering Provider: GEORGE REICH Report Released Date/Time: Apr 17, 2024 04:07 PM Reporting Lab: [facility] [address] [facility] [address] Performing Lab: [facility] [address] [facility] [address] [facility] COMPREHE NSIVE METABOLI C PANEL CALCIUM [MASS/VOLU ME] IN SERUM OR PLASMA 9.3 mg/dL 8.4 - 10.4 04/17 Specimen Type: PLASMA Comment: No hemolysis noted. Ordering Provider: GEORGE REICH Report Released Date/Time: Apr 17, 2024 04:07 PM Reporting Lab: [facility] [address] [facility] [address] Performing Lab: [facility] [address] [facility] [address] [facility] COMPREHE NSIVE METABOLI C PANEL PROTEIN [MASS/VOLU ME] IN SERUM OR PLASMA 7.7 g/dL 6 - 8.6 04/17 Specimen Type: PLASMA Comment: No hemolysis noted. Ordering Provider: GEORGE REICH Report Released Date/Time: Apr 17, 2024 04:07 PM Reporting Lab: [facility] [address] [facility] [address] Performing Lab: [facility] [address] [facility] [address] [facility] COMPREHE NSIVE METABOLI C PANEL ALBUMIN [MASS/VOLU ME] IN SERUM OR PLASMA 4.5 g/dL 3.4 - 5 04/17 Specimen Type: PLASMA Comment: No hemolysis noted. Ordering Provider: GEORGE REICH Report Released Date/Time: Apr 17, 2024 04:07 PM Reporting Lab: [facility] [address] [place] [address] Performing Lab: [facility] [address] [place] [address] [facility] COMPREHE NSIVE METABOLI C PANEL BILIRUBIN. TOTAL [MASS/VOLU ME] IN SERUM OR PLASMA 0.3 mg/dL 0.2 - 1.2 04/17 Specimen Type: PLASMA Comment: No hemolysis noted. Ordering Provider: GEORGE REICH Report Released Date/Time: Apr 17, 2024 04:07 PM Reporting Lab: [facility] [address] [place] [address] Performing Lab: [facility] [address] [place] [address] [facility] COMPREHE NSIVE METABOLI C PANEL ALKALINE PHOSPHATAS E [ENZYMATIC ACTIVITY/V OLUME] IN SERUM OR PLASMA 63 U/L 40 - 150 04/17 Specimen Type: PLASMA Comment: No hemolysis noted. Ordering Provider: GEORGE REICH Report Released Date/Time: Apr 17, 2024 04:07 PM Reporting Lab: [facility] [address] [facility] [address] Performing Lab: [facility] [address] [place] [address] [facility] COMPREHE NSIVE METABOLI C PANEL ASPARTATE AMINOTRANS FERASE [ENZYMATIC ACTIVITY/V OLUME] IN SERUM OR PLASMA 15 U/L 5 - 34 04/17 Specimen Type: PLASMA Comment: No hemolysis noted. Ordering Provider: GEORGE REICH Report Released Date/Time: Apr 17, 2024 04:07 PM Reporting Lab: [facility] [address] [place] [phone] Performing Lab: [facility] [address] [place] [phone] COMPREHE NSIVE METABOLI C PANEL ALANINE AMINOTRANS FERASE [ENZYMATIC ACTIVITY/V OLUME] IN SERUM OR PLASMA 13 U/L 8 - 40 04/17 Specimen Type: PLASMA Comment: No hemolysis noted. Ordering Provider: GEORGE REICH Report Released Date/Time: Apr 17, 2024 04:07 PM Reporting Lab: [place] [address] [place] [phone] Performing Lab: [facility] [address] [place] [phone] COMPREHE NSIVE METABOLI C PANEL GLOMERULAR FILTRATION RATE/1.73 SQ M.PREDICTE D [VOLUME RATE/AREA] IN SERUM, PLASMA OR BLOOD BY CREATININE -BASED FORMULA (CKD-EPI 2020) 69.6 60 04/17 Specimen Type: PLASMA Comment: No hemolysis noted. Ordering Provider: GEORGE REICH Report Released Date/Time: Apr 17, 2024 04:07 PM Reporting Lab: [facility] [address] [facility] [address] Performing Lab: [facility] [address] [place] [phone] CPK CREATINE KINASE [ENZYMATIC ACTIVITY/V OLUME] IN SERUM OR PLASMA 101 U/L 29 - 168 04/17 Specimen Type: PLASMA Comment: No hemolysis noted. Ordering Provider: GEORGE REICH Report Released Date/Time: Apr 17, 2024 04:07 PM Reporting Lab: [facility] [address] [facility] [address] Performing Lab: [facility] [address] [facility] [address] [facility] MAGNESIU M MAGNESIUM [MASS/VOLU ME] IN SERUM OR PLASMA 2.0 mg/dL 1.6 - 2.6 04/17 Specimen Type: PLASMA Comment: No hemolysis noted. Ordering Provider: GEORGE REICH Report Released Date/Time: Apr 17, 2024 04:07 PM Reporting Lab: [place] [address] [facility] [address] Performing Lab: [place] [address] [facility] [address] [facility] PROLACTI N (STL-Eff 05/31) PROLACTIN [MASS/VOLU ME] IN SERUM OR PLASMA 10.22 ng/mL 3.5 - 19.4 04/17 Specimen Type: PLASMA Comment: No hemolysis noted. Ordering Provider: GEORGE REICH Report Released Date/Time: Apr 17, 2024 04:07 PM Reporting Lab: [place] [address] [facility] [address] Performing Lab: [place] [address] [facility] [address] [facility] Vital Signs Combined list of inpatient and outpatient Vital Signs from Department of Defense and Veterans Affairs, ranging from 12 months to all on record, depending upon the facility. Vital Sign Value Date Comments Source SYSTOLIC BLOOD PRESSURE 128 07/08/2024 13:31:[address] [facility] DIASTOLIC BLOOD PRESSURE 88 07/08/2024 13:31:[address] [facility] PULSE OXIMETRY 98 07/08/2024 13:31:59 [facility] WEIGHT 127 07/08/2024 13:31:59 [facility] BMI 20 kg/m2 07/08/2024 13:31:59 [facility] PAIN 5 07/08/2024 13:31:59 [facility] DIVISION TEMPERATURE 99.3 07/08/2024 13:31:59 [facility] 75 07/08/2024 13:31[facility] RESPIRATION 18 07/08/2024 13:31:59 [facility] SYSTOLIC BLOOD PRESSURE 133 06/20/2024 12:07:00 [facility] DIV[facility] DIASTOLIC BLOOD PRESSURE 83 06/20/2024 12:07:00 [facility] PAIN 8 06/20/2024 12:07:00 [facility] TEMPERATURE 98.4 06/20/2024 12:07:00 [facility] DIVISION PULSE 114 06/20/2024 12:07:00 [facility] RESPIRATION 20 06/20/2024 12:07:00 [facility] DIVISION SYSTOLIC BLOOD PRESSURE 141 05/04/2024 00:54:00 [facility] DIASTOLIC BLOOD PRESSURE 91 05/04/2024 00:54:00 [facility] PAIN 8 05/04/2024 00:54:00 [facility] TEMPERATURE 98.4 05/04/2024 00:54:00 [facility] PULSE 90 05/04/2024 00:54:00 [facility] RESPIRATION 16 05/04/2024 00:54:00 [facility] PAIN 7 04/30/2024 16:22:00 [facility] SYSTOLIC BLOOD PRESSURE 120 04/17/2024 15:36:00 [facility] DIASTOLIC BLOOD PRESSURE 80 04/17/2024 15:36:00 [facility] PAIN 6 04/17/2024 15:36:00 [facility] TEMPERATURE 98 04/17/2024 15:36:00 [facility] DIVISION PULSE 75 04/17/2024 15:36:00 [facility] RESPIRATION 22 04/17/2024 15:36:00 [facility] Encounters Combined list of: 1) Encounters from Department of [facility] Affairs facilities going backup to the last 18 months, not all VA inpatient encounters are included; 2) Encounters from the Department of [facility] facilities going backup to 280 months. Location Location Details Encounter Type Encounter Number Reason For Visit Attending Provider ADM Date DC Date Status Disposition Source [facility] Outpatient Encounter [id number] 05/19 [facility] Outpatient Encounter [id number] 06/15 [facility] Outpatient Encounter [id number] DOMITILA BARCLAY JAQUAN 06/30 [facility] OFFICE O/P EST MOD 30-39 MIN [id number] [id number] Diagnos is: ICD-10- CM F33.1 Major depress dawson disorde r, recurre nt, moderat e OCTAVIA GUERRA 07/07 [facility] EYE EXAM WITH PHOTOS [id number] [id number] Diagnos is: ICD-10- CM Z13.5 Encount er for screeni ng for eye and ear disorde rs OCTAVIA GUERRA 07/07 [facility] Outpatient Encounter [id number] Diagnos is: ICD-10- CM G47.33 Obstruc tive sleep apnea (adult) (pediat mook) LACIE MOON 07/07 [facility] IMG RTA DETC/MNTR DS PHY/QHP [id number] [id number] Diagnos is: ICD-10- CM Z13.5 Encount er for screeni ng for eye and ear disorde rs STERLING LUIS J 07/07 [facility] Outpatient Encounter [id number] [id number] 07/08 [facility] DIV[facility] OFFICE O/P EST MOD 30-39 MIN [id number] [id number] Diagnos is: ICD-10- CM F33.1 Major depress dawson disorde r, recurre nt, moderat e JAZ WOOTEN A 07/29 [facility] Outpatient Encounter [id number] [id number] 07/31 [facility] OFFICE O/P EST LOW 20 MIN [id number] [id number] Diagnos is: ICD-10- CM F33.1 Major depress dawson disorde r, recurre nt, OCTAVIA Walker 09/08 [facility] Outpatient Encounter [id number] [id number] 2 09/23 [facility] Outpatient Encounter [id number] [id number] 09/24 [facility] Outpatient Encounter [id number] [id number] DOMITILA BARCLAY 10/13 [facility] OFFICE O/P EST LOW 20 MIN 09692-3.65 [id number] Diagnos is: ICD-10- CM M79.7 Fibromy manasaia OCTAVIA GUERRA 10/19 [facility] Outpatient Encounter [id number] [id number] 10/20 [facility] OFFICE O/P EST MOD 30 MIN [id number] [id number] Diagnos is: ICD-10- CM F33.1 Major depress dawson disorde r, recurre nt, moderat e JAZ WOOTEN A 10/27 [facility] Outpatient Encounter [id number] [id number] 11/01 [facility] Outpatient Encounter [id number] [id number] 11/19 [facility] Outpatient Encounter [id number] [id number] 12/02 [facility] OFFICE O/P EST MOD 30 MIN [id number] [id number] Diagnos is: ICD-10- CM M54.2 Cervica lgia OCTAVIA GUERRA 12/06 [facility] Outpatient Encounter [id number] [id number] 12/20 [facility] OFF/OP CNSLTJ NEW/EST MOD 40 [id number] [id number] Diagnos is: ICD-10- CM 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, cervica l region CARAGINE,L OUIS P 01/03 [facility] Outpatient Encounter [id number] [id number] 01/03 [facility] Out[facility] Encounter [id number] [id number] 01/04 [facility] Outpatient Encounter [id number] [id number] 1 01/05 [facility] Outpatient Encounter [id number] [id number] 01/26 [facility] Outpatient Encounter [id number] [id number] 2 02/01 [facility] Outpatient Encounter [id number] [id number] 02/10 [facility] Outpatient Encounter [id number] [id number] 02/22 [facility] EMERGENCY DEPT VISIT MOD MDM [id number] [id number] Diagnos is: ICD-10- CM R53.1 Shawn Benitez T 02/22 [facility] Outpatient Encounter [id number] [id number] 02/22 [facility] Outpatient Encounter [id number] [id number] 02/22 [facility] OFF/OP CNSLTJ NEW/EST MOD 40 84185-6.65 [id number] Diagnos is: ICD-10- CM G43.119 Migrain e with aura, intract able, without status migrain osus MARILOU PAINTING RT L III 02/22 [facility] Outpatient Encounter [id number] [id number] Shawn OGDEN T 02/22 [facility] Outpatient Encounter [id number] [id number] OCTAVIA GUERRANadine 03/13 [facility] EMERGENCY DEPT VISIT LOW MDM 09460-0.65 [id number] Diagnos is: ICD-10- CM S93.402 A Sprain of unspeci fied ligamen t of left ankle, init encntr Shawn OGDEN T 03/23 [facility] Outpatient Encounter [id number] [id number] 2 03/23 [facility] Outpatient Encounter [id number] [id number] 3 Shawn OGDEN T 03/23 [facility] Outpatient Encounter [id number] [id number] Shawn OGDEN T 03/23 [facility] Outpatient Encounter 91127-4.65 [id number] 03/28 [facility] Outpatient Encounter [id number] [id number] 03/29 [facility] Outpatient Encounter [id number] [id number] 1 04/04 [facility] OFF/OP CNSLTJ NEW/EST LOW 30 [id number] [id number] 2 Diagnos is: ICD-10- CM S93.492 A Sprain of other ligamen t of left ankle, initial encount er OMAR QUINTANILLA 04/05 [facility] Outpatient Encounter [id number] [id number] 04/05 [facility] OFFICE O/P EST MOD 30 MIN [id number] [id number] Diagnos is: ICD-10- CM G43.E09 Chronic migrain e with aura, not ntrct, without stat migr THOR-NORMABettieLAUREANO 04/06 [facility] OFFICE O/P EST MOD 30 MIN [id number] [id number] Diagnos is: ICD-10- CM M48.02 Spinal stenosi s, cervica l region CARAGINE,L OUIS P 04/06 [facility] Outpatient Encounter [id number] [id number] 5 04/08 [facility] EMERGENCY DEPT VISIT MOD MDM [id number] [id number] Diagnos is: ICD-10- CM R51.9 Headach e, unspeci fied AMARJIT REICH SOILA 04/17 [facility] Outpatient Encounter 78217-7.65 [id number] 04/17 [facility] Outpatient Encounter [id number] [id number] AMARJIT REICH TROY 04/17 [facility] Outpatient Encounter [id number] [id number] [facility] Outpatient Encounter [id number] [id number] 2 04/21 [facility] Outpatient Encounter [id number] [id number] 2 SEGUN DE LUNA M 04/21 [facility] Outpatient Encounter [id number] [id number] 04/22 [facility] EMERGENCY DEPT VISIT [facility] [id number] [id number] Diagnos is: ICD-10- CM G43.901 Migrain e, unsp, not intract able, with status migrain osus Santos MONTENEGRO H 04/30 [facility] EMERGENCY DEPT VISIT [facility] [id number] [id number] Diagnos is: ICD-10- CM G43.901 Migrain e, unsp, not intract able, with status migrain osus MELANIE PIERCE P 05/04 [facility] Outpatient Encounter [id number] [id number] 05/09 [facility] Outpatient Encounter [id number] [id number] Ny ARTISISTINE 05/09 [facility] Outpatient Encounter [id number] [id number] 05/13 [facility] Outpatient Encounter [id number] [id number] 05/16 [facility] Outpatient Encounter [id number] [id number] 05/17 [facility] Outpatient Encounter [id number] [id number] 05/18 [facility] Outpatient Encounter [id number] [id number] 05/18 [facility] Outpatient Encounter 79923-3.66 [id number] 05/23 [facility] Outpatient Encounter [id number] [id number] 05/25 [facility] [id number] [id number] Diagnos is: ICD-10- CM M48.02 Spinal stenosi s, cervica l region CARAGINE,L OUIS P 05/25 [facility] Outpatient Encounter [id number] [id number] 05/25 [facility] N [facility] HC PRO PHONE CALL 5-10 MIN [id number]. [id number] Diagnos is: ICD-10- CM F33.1 Major depress dawson disorde r, recurre nt, moderat e JOHNSON,MIGUEL L L 06/[address] [facility] Outpatient Encounter [id number] [id number] 3 06/20 [facility] Outpatient Encounter [id number] [id number] MARY MAN F 06/20 [facility] EMERGENCY DEPT VISIT LOW MDM 01945-4.65 [id number] Diagnos is: ICD-10- CM N10 Acute pyelone phritis MARY MAN F 06/20 [facility] Outpatient Encounter [id number] [id number] MARY MAN F 06/20 [facility] CASE MANAGEMENT [id number] [id number] 3 Diagnos is: ICD-10- CM Z65.3 Problem s related to other legal circums tances Beth'ELIAS HOOKS LLEEN E 06/20 [facility] Outpatient Encounter [id number] [id number] 2 06/23 [facility] Outpatient Encounter [id number] [id number] 06/23 [facility] Outpatient Encounter [id number] [id number] 06/24 [facility] NRV CNDJ TEST 7-8 STUDIES [id number] [id number] Diagnos is: ICD-10- CM M48.02 Spinal stenosi s, cervica l region SUFI,ASIFA N 06/28 [facility] Outpatient Encounter [id number] [id number] 3 06/28 [facility] OFFICE O/P EST MOD 30 MIN [id number] [id number] Diagnos is: ICD-10- CM F33.1 Major depress dawson disorde r, recurre nt, moderat e SEUGN DE LUNA M 06/30 [facility] Outpatient Encounter [id number] [id number] 06/30 [facility] Outpatient Encounter [id number] [id number] 07/01 [facility] OFFICE O/P EST MOD 30 MIN [id number] [id number] Diagnos is: ICD-10- CM M79.7 Fibromy OCTAVIA Haider 07/08 [facility] ASSMT/REAS SESSMENT 81400-8.65 [id number] Diagnos is: ICD-10- CM Z65.3 Problem s related to other legal circums leyla CLAROSJose LESAMAXWELL VICKI 07/11 [facility] ASSMT/REAS SESSMENT 82183-3.65 [id number] Diagnos is: ICD-10- CM Z63.0 Problem s in relatio nship with spouse or partner KELLIE, MERLIN Jose 07/12 [facility] HC PRO PHONE CALL 5-10 MIN [id number] [id number] Diagnos is: ICD-10- CM Z63.0 Problem s in relatio nship with spouse or partner KELLIE, MERLIN Jose 07/18 [facility] Outpatient Encounter [id number] [id number] 5 07/29 [facility] Outpatient Encounter [id number] [id number] 2 07/29 [facility] Outpatient Encounter [id number] [id number] SEGUN DE LUNA 08/10 [facility] Outpatient Encounter [id number] [id number] 08/10 [facility] Outpatient Encounter [id number] [id number] 08/11 [facility] Outpatient Encounter [id number] [id number] 08/12 [facility] OFFICE O/P EST MOD 30 MIN [id number] [id number] Diagnos is: ICD-10- CM F33.1 Major depress dawson disorde r, recurre nt, moderat e JAZ WOOTEN 09/14 [facility] Outpatient Encounter [id number] [id number] OCTAVIA GUERRA 09/15 [facility] Outpatient Encounter [id number] [id number] HILARIO ANDERSON 09/20 [facility] Social History Combined list of available smoking, tobacco, and other social history from Department of Defense and [facility] Affairs facilities. Social History Type Response Date Comment [facility] e Tobacco smoking status NHIS VA-TOBACCO USE EVERY DAY CIGARETTES 06/30/[address] [facility] History of tobacco use IN-TOBACCO NEVER USED OTHER TYPE 06/30/[address] [facility] History of tobacco use VA-TOBACCO USER EVERY DAY 12/01/[address] [facility] History of tobacco use IN-TOBACCO USE WI 30 MIN OF WAKEUP 12/19/2021 [facility] History of tobacco use IN-TOBACCO USE WI 30 MIN OF WAKEUP 01/11/[address] [facility] History of tobacco use [facility] TOBACCO SMOKES RECENTLY QUIT 05/30/2020 [facility] History of tobacco use [facility] TOBACCO USE 09/29/2019 [facility] History of tobacco use VA-TOBACCO USER EVERY DAY 07/14/2018 [facility] History of tobacco use CURRENT TOBACCO USER 02/22/2018 [facility] History of tobacco use TOBACCO SCREEN COMPLETED 02/19/2017 [facility] [place] [facility] History of tobacco use TOBACCO MEDICATION REFERRAL 01/14/2016 [facility] History of tobacco use TOBACCO MEDICATION REFERRAL 12/27/2014 [facility] History of tobacco use CURRENT TOBACCO USER 01/19/2014 [facility] History of tobacco use TOBACCO MEDICATION ORDERED 12/07/2012 [facility] Plan of Care List of future care activities from Department of [facility] Affairs facilities. Additional future care activities may be listed in the Assessment and Plan section. Date/Time Care Activity Care Activity Detail Facili ty 12/14/2024 AMBULATORY - PSYCHIATRY AMBULATORY - [facility]
== END 2024-11-14 19:43 | disposition home or self-care (01) ==
PROVIDERS: Registered Nurse; Emergency Provider Emergency Medicine
DX: N39.0 Urinary tract infection, site not specified (principal); M79.7 Fibromyalgia
CPT/HCPCS: 36415; 80053; 81001; 85025; 87077; 87086; 87186; 96365; 99284; A9270; J0696